=== PATIENT | female | born 1965 | race Caucasian/White ===

== ENCOUNTER 2021-10-19 10:00 | Outpatient (RCR) | payer OTHER, SELFPAY | END 2022-08-25 09:00 | disposition home or self-care (01) | PROVIDERS: Visit Provider Physician Assistant Medical | DX: M65.4 Radial styloid tenosynovitis [de Quervain] (principal); Z51.89 Encounter for other specified aftercare | CPT/HCPCS: 97033; 97035; 97140 ==

== ENCOUNTER 2022-02-28 11:59 | Emergency (ER) | payer OTHER, SELFPAY ==
--- NOTE | 2022-02-28 | CRLHL7_ITS ---
For Patients: As a result of the Century Cures Act, medical imaging exams and procedure reports are released immediately into your electronic medical record. You may view this report before your referring provider. If you have questions, please contact your health care provider. INDICATION: Leg pain and swelling. TECHNIQUE: Ultrasound venous duplex lower left extremity. Compression venous exam was performed using doll-scale, color Doppler, and spectral Doppler analysis. COMPARISON: None. FINDINGS: Deep veins: Sonographic imaging demonstrates the left common femoral, deep femoral, superficial femoral, popliteal, posterior tibial and the contralateral right common femoral veins to be fully compressible with normal color Doppler blood flow. Superficial veins: Greater saphenous vein is fully compressible. Soft tissues: Anechoic collection in the popliteal fossa measures 2.4 x 1.1 x 1.4 cm, suggestive of a simple Medina`s cyst. IMPRESSION: No deep venous thrombosis. Dictated by Estuardo Escalante MD @ 02/28/2022 3:12:14 PM (Electronically Signed)
[2022-02-28 12:03] VITALS: BP 161/80; PULSE 106; RESP 20; TEMP 36.2; O2SAT 97; BMI 64.1
--- NOTE | 2022-02-28 13:07 | CRLHL7_ITS ---
For Patients: As a result of the Cures Act, medical imaging exams and procedure reports are released immediately into your electronic medical record. You may view this report before your referring provider. If you have questions, please contact your health care provider. Indication: Knee pain, swelling Comparison: None available. Technique: Standing AP, lateral, and sunrise views of the bilateral knee were obtained Findings: There is no displaced fracture or dislocation. There are severe degenerative changes of the right greater than left medial compartments with near complete loss of joint space and exuberant osteophyte formation. No evidence of joint effusion. Impression: Moderate to severe degenerative changes predominantly in the bilateral right greater than left medial compartments with near complete loss of joint space and marginal osteophyte formation. No evidence of displaced fracture. Dictated by Isidro Hogan MD @ 02/28/2022 3:52:29 PM (Electronically Signed)
--- NOTE | 2022-02-28 13:08 | ED.GENADULT ---
HPI - General Adult General Time Seen by Provider: 13:09 Date Seen: 02/28/22 Chief complaint: Extremity Pain/Injury, Lower Stated complaint: Left leg pain Time Seen by Provider: 02/28/22 12:10 Source: patient Mode of arrival: ambulatory Limitations: no limitations History of Present Illness HPI narrative: 57-year-old female who comes in with left knee pain. She initially says this is been going on about a week, but on further interview says that she has been seen her doctor for this for over 2 years. Pain is been worse the last 2 weeks. She feels like the knee is more swollen than usual and feels like it is going to give out. She denies fevers or chills. She has taken Percocet for this and has applied hot packs to the knee with minimal improvement. She uses walker for ambulation. She denies any new injury. She called the clinic and they indicated she should come to the emergency department for evaluation for a blood clot. Related Data Home Medications Medication Instructions Recorded Confirmed bupropion HCl 150 mg tablet,12 hr mg PO 02/28/22 sustained-release celecoxib 200 mg capsule mg 02/28/22 cyclobenzaprine 10 mg tablet mg 02/28/22 dextroamphetamine-amphetamine ER PO 02/28/22 30 mg 24hr capsule,extend release furosemide 40 mg tablet mg 02/28/22 gabapentin 300 mg capsule mg 02/28/22 levothyroxine 200 mcg tablet mcg 02/28/22 levothyroxine 25 mcg tablet mcg 02/28/22 oxycodone-acetaminophen 5 mg-325 tab 02/28/22 mg tablet pantoprazole 40 mg tablet,delayed mg PO 02/28/22 release pramipexole 1 mg tablet mg 02/28/22 Allergies Allergy/AdvReac Type Severity Reaction Status Date / Time Cephalosporins Allergy Mild Unknown Verified 02/10/22 09:50 gabapentin Allergy Mild Unknown Verified 02/10/22 09:50 Sulfa (Sulfonamide Allergy Mild Unknown Verified 02/10/22 09:50 Antibiotics) sulfamethoxazole Allergy Mild Unknown Verified 02/10/22 09:50 trimethoprim Allergy Mild Unknown Verified 02/10/22 09:50 adhesive tape AdvReac Mild Unknown Verified 02/10/22 09:50 Review of Systems Status of ROS: Reports: 10 or more systems reviewed and unremarkable except as noted in History and below PFSH PFSH Social History Smoking Status: Never smoker Do you use any of these nicotine containing products: None How often do you have a drink containing alcohol: never AUDIT-C Alcohol total score: 0 Non-prescribed substance use: denies use Exam Narrative: Exam Narrative: General: well nourished , NAD Head: Atraumatic and normocephalic ENT: External ears and external nose are normal Eyes: Conjunctiva clear, pupils are equal reactive, external ocular motions are intact Neck: Full spontaneous range of motion of the neck Lungs: No respiratory distress Musculoskeletal: Possible swelling of the left knee although exam is difficult due to body habitus, no redness or warmth, no pain with passive movement of the knee. Mild swelling of the left without tenderness Neurologic: No gross focal neurologic deficits Skin: No rashes Psych: Mood and affect are appropriate Const: Vital Signs, click to edit/add: Vital Signs - 24 hr 02/28/22 12:03 Temperature 97.1 F L Pulse Rate [Right Pulse Oximeter] 106 H Respiratory Rate 20 Blood Pressure [Ri ght Upper Arm] 161/80 H Pulse Oximetry 97 Oxygen Delivery Me thod Room Air Course Course Hospital Course: Patient presents with left knee pain. This been a problem going on for couple years, worse in the last week. No redness, warmth, or pain with passive movement to suggest crystal arthropathy or septic arthritis. Minimal swelling of the lower leg, ultrasound is ordered as patient is concerned about a DVT but this is clinically unlikely. Symptoms are most consistent with exacerbation of patient's known osteoarthritis. X-rays are ordered, plan to discharge with continued pain and consideration for arthrocentesis and steroid injection as an outpatient Reevaluation(s) Reevaluation #1: Ultrasound is negative for acute DVT, x-rays personally reviewed by me show osteoarthritis but no acute fractures. Patient is stable for discharge and will follow up with her regular doctor to discuss further treatment. She reports that she does have a pain contract with [facility] as Percocet at home, she can increase this to 4 times a day if needed. Time: 15:25 Vital Signs Vital signs: Initial Vital Signs Temperature 97.1 F L 02/28/22 12:03 Temperature Source Temporal Artery Scan 02/28/22 12:03 Pulse Rate 106 H 02/28/22 12:03 Respiratory Rate 20 02/28/22 12:03 Blood Pressure 161/80 H 12/27/22 12:03 Blood Pressure Mean 107 02/28/22 12:03 Blood Pressure Position Sitting 02/28/22 12:03 Pulse Oximetry 97 02/28/22 12:03 Oxygen Delivery Method 02/28/22 12:03 Vital Signs Temperature 97.1 F L 02/28/22 12:03 Pulse Rate 106 H 02/28/22 12:03 Respiratory Rate 20 02/28/22 12:03 Blood Pressure 161/80 H 02/28/22 12:03 Pulse Oximetry 97 02/28/22 12:03 Oxygen Delivery Method 02/28/22 12:03 Temperature 97.1 F L 02/28/22 12:03 Pulse Rate 106 H 02/28/22 12:03 Respiratory Rate 20 02/28/22 12:03 Blood Pressure 161/80 H 02/28/22 12:03 Pulse Oximetry 97 02/28/22 12:03 Oxygen Delivery Method 02/28/22 12:03 Medical Decision Making Medical Records Medical records reviewed: Yes I reviewed the patient's medical records Lab Data Lab results reviewed: Yes I reviewed the patient's lab results Imaging Data Venous US: Attestation: I have reviewed the pertinent imaging results. Radiologist's impression: Soft tissues: Anechoic collection in the popliteal fossa measures 2.4 x 1.1 x 1.4 cm, suggestive of a simple Medina`s cyst. IMPRESSION: No deep venous thrombosis. XR knees bilateral: Attestation: I have reviewed the pertinent imaging results. My impression: Degenerative changes bilaterally, no acute fracture Discharge Plan Discharge Clinical Impression: Effusion of knee joint, left, Medina's cyst, unruptured, Osteoarthritis of left knee Patient Disposition: Home, Self-Care Condition: Stable Instructions: Osteoarthritis (ED), Medina Cyst (ED), Swollen Knee Joint (ED) Additional Instructions: Ice and compression to help with symptoms. Continue Tylenol and ibuprofen for pain. Take Percocet up to 4 times a day as needed for more severe pain. Follow-up with your doctor as soon as possible discuss further treatment including aspiration and steroid injection Activity Level: Activity as Tolerated Discharge Diet: Regular Prescriptions: No Action celecoxib 200 mg capsule cyclobenzaprine 10 mg tablet pramipexole 1 mg tablet Label Comments: TAKE 1 AND 1/2 TABLETS BY MOUTH AT BEDTIME NEEDED furosemide 40 mg tablet Label Comments: TAKE 1-2 TABLETS (40-80 MG) BY MOUTH EVERY MORNING. bupropion HCl 150 mg tablet sustained-release 12 hr PO Label Comments: TAKE TWO TABLETS BY MOUTH DAILY EVERY MORNING levothyroxine 25 mcg tablet Label Comments: TAKE 1 TABLET (25 MCG) BY MOUTH BEFORE BREAKFAST. TAKE IN ADDITION TO 200 MCG FOR TOTAL OF 225 MCG/DAY. oxycodone-acetaminophen 5-325 mg tablet pantoprazole 40 mg tablet,delayed release (DR/EC) PO Label Comments: TAKE 1 TABLET (40 MG) BY MOUTH ONCE DAILY. gabapentin 300 mg capsule Label Comments: TAKE 1 CAPSULE (300 MG) BY MOUTH 2 TIMES DAILY. levothyroxine 200 mcg tablet Label Comments: TAKE 1 TABLET (200 MCG) BY MOUTH BEFORE BREAKFAST. TAKE IN ADDITION TO 25 MCG TO TOTAL OF 225 MCG. dextroamphetamine-amphetamine 30 mg capsule,extended release 24hr PO Label Comments: TAKE 1 CAPSULE (30 MG) BY MOUTH ONCE DAILY. Stand Alone Forms: [facility] Info Instructions
--- NOTE | 2022-02-28 13:55 | ED.NURSE ---
US is in the room performing test
[2022-02-28] MEDS: KETOROLAC 30 MG/ML inj IM (15:43)
== END 2022-02-28 15:54 | disposition home or self-care (01) ==
PROVIDERS: Emergency Provider Family Medicine; PCP Physician Assistant Medical
DX: M71.22 Synovial cyst of popliteal space [Baker], left knee (principal); M17.9 Osteoarthritis of knee, unspecified
CPT/HCPCS: 73562; 93971; 96372; 99284; J1885

== ENCOUNTER 2022-06-09 07:04 | Outpatient (CLI) | payer OTHER, SELFPAY ==
--- NOTE | 2022-06-09 07:15 | CRLHL7_ITS ---
For Patients: As a result of the Century Cures Act, medical imaging exams and procedure reports are released immediately into your electronic medical record. You may view this report before your referring provider. If you have questions, please contact your health care provider. INDICATION: bilateral leg edema COMPARISON: none TECHNIQUE: A compression venous ultrasound exam was performed of both lower extremities using doll scale imaging, color Doppler and spectral Doppler analysis. FINDINGS: Sonographic imaging of the lower extremities demonstrates normal compressibility and color Doppler venous blood flow within the common femoral, deep femoral, and proximal greater saphenous veins. Within the thighs the femoral veins are patent and compressible. At a lower level the popliteal and posterior tibial veins also show normal compressibility and color Doppler venous blood flow. Small popliteal cysts are present bilaterally. IMPRESSION: No evidence of deep vein thrombosis within either the left or right lower extremity. Dictated by Rodrigo Clark MD @ 06/09/2022 11:09:11 AM (Electronically Signed)
== END 2022-06-09 07:05 | disposition home or self-care (01) ==
LOC: US 07:06
PROVIDERS: PCP Physician Assistant Medical; Visit Provider Dietitian, Registered
DX: R60.0 Localized edema (principal)
CPT/HCPCS: 93970

== ENCOUNTER 2022-08-18 11:58 | Outpatient (CLI) | payer OTHER, SELFPAY ==
--- NOTE | 2022-08-18 12:15 | CRLHL7_ITS ---
For Patients: As a result of the Century Cures Act, medical imaging exams and procedure reports are released immediately into your electronic medical record. You may view this report before your referring provider. If you have questions, please contact your health care provider. INDICATION: Lumbar radiculopathy. TECHNIQUE: Multiplanar multisequence noncontrast MR images acquired through the lumbar spine. COMPARISON: MRI lumbar spine 02/05/2020. FINDINGS: The lumbar lordosis is preserved. Slight leftward lumbar curvature. Vertebral heights maintained. No acute fracture. No T1 hypointense marrow replacing lesions. Normal conus terminates at L1. T12-L1: Mild disc degeneration. No spinal canal or neural foraminal narrowing. L1-2: Hbny-vs-maovwbkq disc degeneration. No spinal canal or neural foraminal narrowing. L2-3: Moderate disc degeneration. Mild disc height loss. Mild facet arthropathy. No spinal canal or neural foraminal narrowing. L3-4: Tfeo-bs-jqsfaver disc degeneration. Xjsg-cl-mheczujs facet arthropathy. No spinal canal or neural foraminal narrowing. L4-5: Grade 1 anterolisthesis measuring 3 mm, not significantly changed. Moderate disc degeneration. Shallow posterior disc bulge. Advanced bilateral facet arthropathy. Thickening ligamentum flavum. Moderately severe spinal canal stenosis. Moderate right lateral recess stenosis. Mild bilateral neural foraminal narrowing. Mild edema right posterior elements. L5-S1: Moderate disc degeneration. Mild endplate edema. Shallow posterior disc bulge and endplate spondylitic ridging. Advanced facet arthropathy. Thickening of ligamentum flavum. No spinal canal narrowing. Mild left without right neural foraminal narrowing. Degenerative indents on the left kidney superior pole, compatible with a renal cyst. IMPRESSION: 1. No significant change compared to the MRI dated 02/05/2020. 2. At L4-5, grade 1 anterolisthesis and advanced facet arthropathy contribute to moderately severe spinal canal stenosis and moderate right lateral recess stenosis. There is mild bilateral neural foraminal narrowing. Mild edema in the right posterior elements, most compatible with a stress response. 3. At L5-S1, mild left neural foraminal narrowing. Advanced facet arthropathy. Dictated by Fermín Beauchamp MD @ 08/19/2022 3:53:51 PM (Electronically Signed)
== END 2022-08-18 11:59 | disposition home or self-care (01) ==
LOC: MRI 11:58
PROVIDERS: PCP Physician Assistant Medical; Visit Provider Physician Assistant Medical
DX: M54.16 Radiculopathy, lumbar region (principal); M51.36 Other intervertebral disc degeneration, lumbar region; M51.37 Other intervertebral disc degeneration, lumbosacral region
CPT/HCPCS: 72148

== ENCOUNTER 2022-08-29 13:24 | Outpatient (CLI) | payer OTHER, SELFPAY | END 2022-08-29 13:25 | disposition home or self-care (01) | LOC: INJ CL 13:24 | PROVIDERS: PCP Physician Assistant Medical; Visit Provider Family Medicine | DX: M54.16 Radiculopathy, lumbar region (principal); M51.36 Other intervertebral disc degeneration, lumbar region | CPT/HCPCS: 62323; J0702; Q9966 ==

== ENCOUNTER 2022-10-08 14:26 | Emergency (ER) | payer OTHER, SELFPAY ==
[2022-10-08 14:34] VITALS: BP 130/84; PULSE 94; RESP 22; TEMP 36.5; O2SAT 95; BMI 66.6
--- NOTE | 2022-10-08 14:58 | ED_ITS ---
HPI - General Adult General Chief complaint: Extremity Pain/Injury, Lower Stated complaint: left knee pain Time Seen by Provider: 10/08/22 14:36 History of Present Illness HPI narrative: This 57-year-old female comes in with worsening left knee pain over the past week or so. She has a history of degenerative disease in her left knee that is moderate to severe. An x-ray was done about 8 months ago showing these findings. The patient has had knee pain over the past several years but it has worsened recently without any particular injury event or strenuous activity to trigger it. She states that she did have a injection into her knee about a year ago and this brought some relief for a while. She does take Percocet daily as part of a pain contract. She has chronic low back pain and sees Dr. Johnson for this. She also has a history of a Medina's cyst in her left knee. Related Data Home Medications Medication Instructions Recorded Confirmed bupropion HCl 150 mg tablet,12 hr mg PO 02/28/22 07/24/22 sustained-release celecoxib 200 mg capsule mg 02/28/22 07/24/22 cyclobenzaprine 10 mg tablet mg 02/28/22 07/24/22 dextroamphetamine-amphetamine ER PO 02/28/22 07/24/22 30 mg 24hr capsule,extend release furosemide 40 mg tablet mg 02/28/22 07/24/22 gabapentin 300 mg capsule mg 02/28/22 07/24/22 levothyroxine 200 mcg tablet mcg 02/28/22 07/24/22 levothyroxine 25 mcg tablet mcg 02/28/22 07/24/22 oxycodone-acetaminophen 5 mg-325 tab 02/28/22 07/24/22 mg tablet pantoprazole 40 mg tablet,delayed mg PO 02/28/22 07/24/22 release pramipexole 1 mg tablet mg 02/28/22 07/24/22 Previous Rx's Medication Instructions Recorded peg 3350-electrolytes 236 240 ml PO ONCE #4,000 mL 05/12/22 gram-22.74 gram-6.74 gram-5.86 gram solution (Golytely) peg 3350-electrolytes 236 240 ml PO ONCE #4,000 mL 07/17/22 gram-22.74 gram-6.74 gram-5.86 gram solution (Golytely) prednisone 20 mg tablet 20 mg PO BID #10 tabs 07/24/22 Allergies Allergy/AdvReac Type Severity Reaction Status Date / Time Cephalosporins Allergy Mild Unknown Verified 07/24/22 18:50 gabapentin Allergy Mild Unknown Verified 07/24/22 18:50 Sulfa (Sulfonamide Allergy Mild Unknown Verified 07/24/22 18:50 Antibiotics) sulfamethoxazole Allergy Mild Unknown Verified 07/24/22 18:50 trimethoprim Allergy Mild Unknown Verified 07/24/22 18:50 adhesive tape AdvReac Mild Unknown Verified 07/24/22 18:50 Review of Systems Status of ROS: Reports: 10 or more systems reviewed and unremarkable except as noted in History and below Narrative: Constitutional: No fevers. Eyes: No discharge. No vision changes. HENT: No congestion, no sore throat, no ear pain. Cardiovascular: No chest pain, no palpitations. Respiratory: No shortness of breath, no wheezes, no cough. Gastrointestinal: No abdominal pain, no vomiting, no diarrhea. Genitourinary: No dysuria, no hematuria. Musculoskeletal: Chronic low back pain and left knee pain. Skin: No rashes, no pruritis. Neurological: No dizziness, weakness, sensory change, speech change. Endo/Heme/Allergies: No bruising or bleeding. No polydipsia. Pysch: no suicidality, no anxiety, no insomnia. All other systems reviewed and are negative. [facility] Medical History (Updated 10/08/22 @ 15:54 by Arpit Bonner MD) Knee pain ?M25.569 - Pain in unspecified knee (ICD-10) Social History Smoking Status: Light tobacco smoker What tobacco products do you use: cigarettes Do you use any of these nicotine containing products: None Second hand tobacco smoke exposure: No How often do you have a drink containing alcohol: never AUDIT-C Alcohol total score: 0 Non-prescribed substance use: denies use service: No Exam Narrative: Exam Narrative: Constitutional: No acute distress. Morbid obesity. HEENT: Normocephalic, atraumatic. Neck: Normal range of motion. Nontender. Supple. Heart: Regular. No murmurs. Normal rate. Intact distal pulses. Lungs: Clear to auscultation. No chest discomfort. No wheezes, rhonchi, or rales. Abdomen: Normal bowel sounds. Nontender. No rebound tenderness. Genitalia: Deferred. Back: No midline tenderness. Normal range of motion. Extremities: Normal range of motion. No sign of injury. Diffuse pain in the anterior and lateral aspect of her left knee. She is able to bear weight and raise her leg from the bed. Skin: Intact. No rash. Warm. No erythema or pallor. Neurologic: No altered sensation. No weakness. Alert and oriented. Psychiatric: No suicidality. No anxiety or depression. No insomnia. Nursing notes and vitals signs are reviewed. Const: Vital Signs, click to edit/add: Vital Signs - 24 hr 10/08/22 14:34 Temperature 97.7 F Pulse Rate [Pulse Oximeter] 94 Respiratory Rate 22 Blood Pressure [Ri ght Forearm] 130/84 Pulse Oximetry 95 Oxygen Delivery Me thod Room Air Course Vital Signs Vital signs: Initial Vital Signs Temperature 97.7 F 10/08/22 14:34 Temperature Source Temporal Artery Scan 10/08/22 14:34 Pulse Rate 94 10/08/22 14:34 Pulse Rhythm Regular 10/08/22 14:34 Respiratory Rate 22 10/08/22 14:34 Blood Pressure 130/84 10/08/22 14:34 Blood Pressure Mean 99 10/08/22 14:34 Blood Pressure Position Supine 10/08/22 14:34 Pulse Oximetry 95 10/08/22 14:34 Oxygen Delivery Method Room Air 10/08/22 14:34 Vital Signs Temperature 97.7 F 10/08/22 14:34 Pulse Rate 94 10/08/22 14:34 Respiratory Rate 22 10/08/22 14:34 Blood Pressure 130/84 10/08/22 14:34 Pulse Oximetry 95 10/08/22 14:34 Oxygen Delivery Method Room Air 10/08/22 14:34 Temperature 97.7 F 10/08/22 14:34 Pulse Rate 94 10/08/22 14:34 Respiratory Rate 22 10/08/22 14:34 Blood Pressure 130/84 10/08/22 14:34 Pulse Oximetry 95 10/08/22 14:34 Oxygen Delivery Method Room Air 10/08/22 14:34 Medical Decision Making MDM Narrative Medical decision making narrative: This patient comes in reporting severe pain in her left knee. There was no particular injury event but she does have history of knee pain related to moderate to severe degenerative disease. She did have an x-ray showing this about 8 months ago. There was no new injury today that mandates repeat x-ray images. The patient did benefit from an intra-articular injection into her knee joint. This was last done about a year ago. She is agreeable to have this done today. I did administer 40 mg of Kenalog mixed with Marcaine 0.25%. Total of 10 mL of fluid was injected successfully into the left knee joint space within approach just left of the patella tendon. The patient also received a intra muscular injection of Toradol 30 mg. She is okay to return home min and courage to follow-up with her orthopedic physician or primary physician. She uses Percocet according to a pain contract. Discharge Plan Discharge Clinical Impression: Knee pain Patient Disposition: Home, Self-Care Condition: Stable Additional Instructions: Continue current medications also as directed. Follow-up with orthopedic clinic or primary physician. Return if worsening. Prescriptions: No Action prednisone 20 mg tablet 20 mg PO BID Qty: 10 0RF celecoxib 200 mg capsule cyclobenzaprine 10 mg tablet pramipexole 1 mg tablet Patient Comments: TAKE 1 AND 1/2 TABLETS BY MOUTH AT BEDTIME NEEDED furosemide 40 mg tablet Patient Comments: TAKE 1-2 TABLETS (40-80 MG) BY MOUTH EVERY MORNING. bupropion HCl 150 mg tablet sustained-release 12 hr PO Patient Comments: TAKE TWO TABLETS BY MOUTH DAILY EVERY MORNING levothyroxine 25 mcg tablet Patient Comments: TAKE 1 TABLET (25 MCG) BY MOUTH BEFORE BREAKFAST. TAKE IN ADDITION TO 200 MCG FOR TOTAL OF 225 MCG/DAY. oxycodone-acetaminophen 5-325 mg tablet pantoprazole 40 mg tablet,delayed release (DR/EC) PO Patient Comments: TAKE 1 TABLET (40 MG) BY MOUTH ONCE DAILY. gabapentin 300 mg capsule Patient Comments: TAKE 1 CAPSULE (300 MG) BY MOUTH 2 TIMES DAILY. levothyroxine 200 mcg tablet Patient Comments: TAKE 1 TABLET (200 MCG) BY MOUTH BEFORE BREAKFAST. TAKE IN ADDITION TO 25 MCG TO TOTAL OF 225 MCG. dextroamphetamine-amphetamine 30 mg capsule,extended release 24hr PO Patient Comments: TAKE 1 CAPSULE (30 MG) BY MOUTH ONCE DAILY. peg 3350-electrolytes [Golytely] 236-22.74-6.74 -5.86 gram recon soln 240 ml PO ONCE Qty: 4000 0RF Rx Instructions: until fecal effluent is clear peg 3350-electrolytes [Golytely] 236-22.74-6.74 -5.86 gram recon soln 240 ml PO ONCE Qty: 4000 0RF Rx Instructions: 4pm day prior to procedure. Drink 8oz glass every 15 minutes until 1/2 of solution is gone. 6 hours prior to your procedure time drink 8oz glass every 15 minutes until remaining solution is gone. Follow Up/Referrals: Concetta Valencia PA-C [Primary Care Provider] - Stand Alone Forms: [facility] Info Instructions
[2022-10-08] MEDS: KETOROLAC 30 MG/ML inj IM (15:04)
== END 2022-10-08 16:37 | disposition home or self-care (01) ==
PROVIDERS: Emergency Provider Emergency Medicine Emergency Medical Services; PCP Physician Assistant Medical
DX: M25.562 Pain in left knee (principal)
CPT/HCPCS: 20610; 96372; 99284; J1885

== ENCOUNTER 2023-02-06 18:19 | Outpatient (CLI) | payer OTHER, SELFPAY ==
--- NOTE | 2023-02-06 18:30 | CRLHL7_ITS ---
For Patients: As a result of the Cures Act, medical imaging exams and procedure reports are released immediately into your electronic medical record. You may view this report before your referring provider. If you have questions, please contact your health care provider. BILATERAL SCREENING MAMMOGRAM WITH COMPUTER-AIDED DETECTION AND TOMOSYNTHESIS TECHNIQUE: CC and MLO views were obtained. These mammographic images have been obtained using full-field digital technique. These mammographic images were interpreted with the benefit of computer-aided detection. Breast Tomosynthesis was used in this interpretation. COMPARISON FILM: 02/06/19, 03/01/18, 02/27/17. FINDINGS: The breasts are almost entirely fatty IMPRESSION: There is no radiographic evidence for malignancy. ASSESSMENT: BI-RADS Category 2: Benign RECOMMENDATION: Routine screening mammogram in 1 year. A lay language report of this examination will be provided to the patient. Rodrigo Clark M.D. Diagnostic Radiologist [email or web address] Transcribed: 6:34 p.mCornelia freeman/Dictated by: Rodrigo Clark MD @ 02/07/2023 12:38:00 PM (Electronically Signed)
== END 2023-02-06 18:20 | disposition home or self-care (01) ==
LOC: MAMMO 18:20
PROVIDERS: PCP Physician Assistant Medical; Visit Provider Physician Assistant Medical
DX: Z12.31 Encounter for screening mammogram for malignant neoplasm of breast (principal)
CPT/HCPCS: 77063; 77067

== ENCOUNTER 2023-07-10 19:12 | Emergency (ER) | payer OTHER, SELFPAY ==
[2023-07-10 19:22] VITALS: BP 136/100; PULSE 98; RESP 18; TEMP 36.5; O2SAT 96; BMI 70.7
--- NOTE | 2023-07-10 19:31 | ED.GENADULT ---
HPI - General Adult General Chief complaint: Unspecified Complaint, Adult Stated complaint: Lightheaded, dry mouth Time Seen by Provider: 07/10/23 19:12 History of Present Illness HPI narrative: Patient is a very nice 50 year white female who has the med significantly elevated BMI, she is contemplating gastric bypass surgery, she has got a weeping area behind her left knee, and she has felt a little dry in her mouth since she took her 2nd dose of metolazone which is a weekly medication for her. She has had fluid retention, does not have history of heart failure, cardiac disease, or pulmonary disease. She reports she has been in a good state of health, she feels okay other than her mouth feels dry. She has had no chest pain, fever, chills, cough. She reports the rash behind her left knee. Related Data Home Medications Medication Instructions Recorded Confirmed bupropion HCl 150 mg tablet,12 hr mg PO 02/28/22 07/24/22 sustained-release celecoxib 200 mg capsule mg 02/28/22 07/24/22 cyclobenzaprine 10 mg tablet mg 02/28/22 07/24/22 dextroamphetamine-amphetamine ER PO 02/28/22 07/24/22 30 mg 24hr capsule,extend release furosemide 40 mg tablet mg 02/28/22 07/24/22 gabapentin 300 mg capsule mg 02/28/22 07/24/22 levothyroxine 200 mcg tablet mcg 02/28/22 07/24/22 levothyroxine 25 mcg tablet mcg 02/28/22 07/24/22 oxycodone-acetaminophen 5 mg-325 tab 02/28/22 07/24/22 mg tablet pantoprazole 40 mg tablet,delayed mg PO 02/28/22 07/24/22 release pramipexole 1 mg tablet mg 02/28/22 07/24/22 Previous Rx's Medication Instructions Recorded peg 3350-electrolytes 236 240 ml PO ONCE #4,000 mL 05/12/22 gram-22.74 gram-6.74 gram-5.86 gram solution (Golytely) peg 3350-electrolytes 236 240 ml PO ONCE #4,000 mL 07/17/22 gram-22.74 gram-6.74 gram-5.86 gram solution (Golytely) prednisone 20 mg tablet 20 mg PO BID #10 tabs 07/24/22 ketoconazole 2 % topical cream 1 applic topical DAILY 7 days #15 07/10/23 grams triamcinolone acetonide 0.1 % 1 applic topical BID #15 grams 07/10/23 topical cream Allergies Allergy/AdvReac Type Severity Reaction Status Date / Time Cephalosporins Allergy Mild Unknown Verified 07/24/22 18:50 gabapentin Allergy Mild Unknown Verified 07/24/22 18:50 Sulfa (Sulfonamide Allergy Mild Unknown Verified 07/24/22 18:50 Antibiotics) sulfamethoxazole Allergy Mild Unknown Verified 07/24/22 18:50 trimethoprim Allergy Mild Unknown Verified 07/24/22 18:50 adhesive tape AdvReac Mild Unknown Verified 07/24/22 18:50 Review of Systems Status of ROS: Reports: 6 or more systems reviewed and unremarkable except as noted in History and below [facility] Medical History Knee pain ?M25.569 - Pain in unspecified knee (ICD-10) Social History Smoking Status: Light tobacco smoker What tobacco products do you use: cigarettes Do you use any of these nicotine containing products: None Second hand tobacco smoke exposure: No How often do you have a drink containing alcohol: never AUDIT-C Alcohol total score: 0 Non-prescribed substance use: denies use service: No Exam Narrative: Exam Narrative: Objective: Patient's vital signs are largely within normal limits, Her BMI is elevated as mention She is alert orient x3 no distress No facial asymmetry no scleral icterus Neck is supple Heart rate and rhythm regular without murmur Pulses regular Abdomen benign soft nontender Lower extremities show trace edema bilaterally she has got a fungal type infection behind her left knee in the crease of her knee, she does have adipose over folds of her posterior knee area. Does not look likes bacterial cellulitis. Const: Vital Signs, click to edit/add: Vital Signs - 24 hr 07/10/23 19:22 07/10/23 21:00 07/10/23 22:00 Temperature 97.7 F 97.7 F Pulse Rate [Pulse Oximeter] 98 86 98 Respiratory Rate 18 16 16 Blood Pressure [Ri ght Forearm] 136/100 H 148/96 H 131/84 Pulse Oximetry 96 96 96 Oxygen Delivery Me thod Room Air Room Air Room Air Course Vital Signs Vital signs: Initial Vital Signs Temperature 97.7 F 07/10/23 19:22 Temperature Source Temporal Artery Scan 07/10/23 19:22 Pulse Rate 98 07/10/23 19:22 Respiratory Rate 18 07/10/23 19:22 Blood Pressure 136/100 H 07/10/23 19:22 Blood Pressure Mean 112 H 07/10/23 19:22 Blood Pressure Position Sitting 07/10/23 19:22 Pulse Oximetry 96 07/10/23 19:22 Oxygen Delivery Method Room Air 07/10/23 19:22 Vital Signs Temperature 97.7 F 07/10/23 19:22 Pulse Rate 98 07/10/23 19:22 Respiratory Rate 18 07/10/23 19:22 Blood Pressure 136/100 H 07/10/23 19:22 Pulse Oximetry 96 07/10/23 19:22 Oxygen Delivery Method Room Air 07/10/23 19:22 Temperature 97.7 F 07/10/23 22:00 Pulse Rate 98 07/10/23 22:00 Respiratory Rate 16 07/10/23 22:00 Blood Pressure 131/84 07/10/23 22:00 Pulse Oximetry 96 07/10/23 22:00 Oxygen Delivery Method Room Air 07/10/23 22:00 Medications Administered Medications: Discontinued Medications Generic Name Dose Route Start Last Admin Trade Name Freq PRN Reason Stop Dose Admin Sodium Chloride 500 mls @ 500 mls/hr 07/10/23 19:30 07/10/23 20:19 0.9 % Sodium Chloride 500 Ml IV 07/10/23 20:29 Infused .Q1H ONE Infusion Potassium Chloride 10 meq in 100 mls @ 100 mls/hr 07/10/23 20:15 07/10/23 22:14 Potassium Chloride IVPB 07/10/23 22:44 Infused Q90M HAKAN Infusion Potassium Bicarbonate 25 meq 07/10/23 21:07 07/10/23 21:56 Potassium Bicarb 25 Meq Effervescent Tab PO 07/10/23 21:08 25 meq ONCE ONE Administration Medical Decision Making MDM Narrative Medical decision making narrative: 50-year-old female with significant elevated BMI with a left posterior knee fungal infection. Will fax in some antifungal cream and steroid cream for her. She could start this tomorrow or thickened up on the way home today. I think also be reasonable given her feeling of dry mouth, that she might have some slight dehydration will recheck her laboratory studies including heme 4 and a basic 7 and give her 500 mL normal saline. Does not appear to have significant fluid retention now her legs. I think that be safe to give her this given she feels symptomatic. She should then make an appoint with regular doctor next few days to discuss ongoing diuretic management. Addendum 8:13 p.m.: The patient has a potassium at 2.7. Will give 2 bumps of 10 will close of IV potassium. Will likely given oral potassium dose as well on completion of these. Will need to have her potassium rechecked in a couple of days and would not take additional metolazone at this point. Will also fax in some antifungal and steroid cream as mention. The patient will be given 2 bumps of IV potassium and will get 25 milk opens orally. Would have her hold metolazone as mention until she consults with regular doctor within the next few days. Light activity recommended, high potassium containing foods to be taken. Lab Data Labs: Lab Results 07/10/23 Range/Units 19:36 WBC 8.49 (4.50-11.00) K/uL RBC 5.17 (4.00-5.20) m/uL Hgb 14.3 (12.0-16.0) gm/dL Hct 43.9 (33.0-51.0) % MCV 85 (80-100) fL MCH 28 (26-34) pg MCHC 33 (32-36) gm/dL RDW Coeff of Chito 13.6 (11.5-15.5) % Plt Count 295 (140-440) K/uL Neut % (Auto) 54.9 (42.0-72.0) % Lymph % (Auto) 35.8 (20-44) % [place] % (Auto) 8.8 (0.0-11.0) % Eos % (Auto) 0.1 (0.0-7.0) % Baso % (Auto) 0.2 (0.0-3.0) % Neut # (Auto) 4.65 (1.7-7.0) K/uL Lymph # (Auto) 3.04 H (0.90-2.90) K/uL [place] # (Auto) 0.70 (0.00-0.90) K/UL Eos # (Auto) 0.01 (0.00-0.50) K/uL Baso # (Auto) 0.02 (0.00-0.30) K/uL Abs Immat Gran (auto) 0.02 (0.00-0.30) K/uL Imm/Tot Granulo (auto) 0.2 % Sodium 136 (135-149) mmol/L Potassium 2.7 L* (3.6-5.1) mmol/L Chloride 91 L (96-114) mmol/L Carbon Dioxide 40 H (20-32) mmol/L Anion Gap 5 L (7-15) mEq/L BUN 21 (7-30) mg/dL Creatinine 1.0 (0.5-1.5) mg/dL Estimated Creat Clear 55.18 Estimated GFR 65 ml/min Glucose 106 (60-115) mg/dL Calcium 9.5 (8.4-10.6) mg/dL Discharge Plan Discharge Clinical Impression: Acute dehydration, Fungal dermatitis, Acute hypokalemia Patient Disposition: Home, Self-Care Condition: Stable Additional Instructions: Light activity, antifungal and steroid cream to the back of the knee as prescribed, recheck with your regular doctor discussed diuretic use and fluid management in the next 5-7 days. Return to ED sooner problems or concerns. Give potassium recheck the next 2 days at clinic Activity Level: Light activity Discharge Diet: Heart Healthy (2 gm sodium, low fat) Diet Detail: High potassium containing foods should be Prescriptions: New triamcinolone acetonide 0.1 % cream 1 applic topical BID Qty: 15 0RF ketoconazole 2 % cream 1 applic topical DAILY 7 Days Qty: 15 0RF No Action prednisone 20 mg tablet 20 mg PO BID Qty: 10 0RF celecoxib 200 mg capsule cyclobenzaprine 10 mg tablet pramipexole 1 mg tablet Patient Comments: TAKE 1 AND 1/2 TABLETS BY MOUTH AT BEDTIME NEEDED furosemide 40 mg tablet Patient Comments: TAKE 1-2 TABLETS (40-80 MG) BY MOUTH EVERY MORNING. bupropion HCl 150 mg tablet sustained-release 12 hr PO Patient Comments: TAKE TWO TABLETS BY MOUTH DAILY EVERY MORNING levothyroxine 25 mcg tablet Patient Comments: TAKE 1 TABLET (25 MCG) BY MOUTH BEFORE BREAKFAST. TAKE IN ADDITION TO 200 MCG FOR TOTAL OF 225 MCG/DAY. oxycodone-acetaminophen 5-325 mg tablet pantoprazole 40 mg tablet,delayed release (DR/EC) PO Patient Comments: TAKE 1 TABLET (40 MG) BY MOUTH ONCE DAILY. gabapentin 300 mg capsule Patient Comments: TAKE 1 CAPSULE (300 MG) BY MOUTH 2 TIMES DAILY. levothyroxine 200 mcg tablet Patient Comments: TAKE 1 TABLET (200 MCG) BY MOUTH BEFORE BREAKFAST. TAKE IN ADDITION TO 25 MCG TO TOTAL OF 225 MCG. dextroamphetamine-amphetamine 30 mg capsule,extended release 24hr PO Patient Comments: TAKE 1 CAPSULE (30 MG) BY MOUTH ONCE DAILY. peg 3350-electrolytes [Golytely] 236-22.74-6.74 -5.86 gram recon soln 240 ml PO ONCE Qty: 4000 0RF Rx Instructions: until fecal effluent is clear peg 3350-electrolytes [Golytely] 236-22.74-6.74 -5.86 gram recon soln 240 ml PO ONCE Qty: 4000 0RF Rx Instructions: 4pm day prior to procedure. Drink 8oz glass every 15 minutes until 1/2 of solution is gone. 6 hours prior to your procedure time drink 8oz glass every 15 minutes until remaining solution is gone. Follow Up/Referrals: Concetta Valencia PA-C [Primary Care Provider] - Stand Alone Forms: [employer] Info Instructions
[2023-07-10] MEDS: 0.9 % SODIUM CHLORIDE 500 ML 500 ML IV (19:41)
[2023-07-10 19:46] LABS: Basophils Absolute Auto 0.02 K/uL (0.00-0.30); Basophils Percent Auto 0.2 % (0.0-3.0); Eosinophils Absolute Auto 0.01 K/uL (0.00-0.50); Eosinophils Percent Auto 0.1 % (0.0-7.0); Hematocrit 43.9 % (33.0-51.0); Hemoglobin* 14.3 gm/dL (12.0-16.0); Immature Granulocytes Abs Auto 0.02 K/uL (0.00-0.30); Immature Granulocytes Pct Auto 0.2 %; Lymphocytes Absolute Auto 3.04 K/uL (0.90-2.90); Lymphocytes Percent Auto 35.8 % (20-44); Mean Corpuscular HGB Conc 33 gm/dL (32-36); Mean Corpuscular Hemoglobin 28 pg (26-34); Mean Corpuscular Volume 85 fL (80-100); Monocytes Percent Auto 8.8 % (0.0-11.0); Neutrophils Absolute Auto 4.65 K/uL (1.7-7.0); Neutrophils Percent Auto 54.9 % (42.0-72.0); Platelet Count* 295 K/uL (140-440); RDW Coefficient of Variation % 13.6 % (11.5-15.5); Red Blood Count 5.17 m/uL (4.00-5.20); White Blood Count* 8.49 K/uL (4.50-11.00)
[2023-07-10 19:49] LABS: Slide Review Reflex No
[2023-07-10 20:00] LABS: Chloride* 91 mmol/L (96-114); Sodium* 136 mmol/L (135-149)
[2023-07-10 20:02] LABS: Est. Creatinine Clearance* 55.18; Estimated Glomerular Filt Rate 65 ml/min
[2023-07-10 20:03] LABS: Anion Gap 5 mEq/L (7-15); Blood Urea Nitrogen* 21 mg/dL (7-30); Calcium* 9.5 mg/dL (8.4-10.6); Carbon Dioxide* 40 mmol/L (20-32); Glucose* 106 mg/dL (60-115)
[2023-07-10 20:06] LABS: Potassium* 2.7 mmol/L (3.6-5.1)
[2023-07-10] MEDS: POTASSIUM CHLORIDE 10 MEQ/100 ML PIGGYBACK 100 MEQ IVPB ×2 (20:19→21:15)
[2023-07-10 21:00] VITALS: BP 148/96; PULSE 86; RESP 16; O2SAT 96
[2023-07-10] MEDS: POTASSIUM BICARB 25 MEQ EFFERVESCENT TAB PO (21:56)
[2023-07-10 22:00] VITALS: BP 131/84; PULSE 98; RESP 16; TEMP 36.5; O2SAT 96
== END 2023-07-10 22:19 | disposition home or self-care (01) ==
LOC: ED 19:56
PROVIDERS: Emergency Provider Family Medicine; PCP Physician Assistant Medical
DX: E86.0 Dehydration (principal); B37.2 Candidiasis of skin and nail; E87.6 Hypokalemia
CPT/HCPCS: 36415; 80048; 85025; 96365; 99284; A9270; J3480; J7030

== ENCOUNTER 2023-09-28 09:44 | Emergency (ER) | payer OTHER, SELFPAY ==
[2023-09-28 09:52] VITALS: BP 110/67; PULSE 95; RESP 26; TEMP 36; O2SAT 93; BMI 68.7
--- NOTE | 2023-09-28 10:42 | ED_ITS ---
HPI - General Adult General Chief complaint: Weakness Stated complaint: Pain, weakness, fog, low potassium Time Seen by Provider: 09/28/23 10:30 History of Present Illness HPI narrative: comes to ed with concerns of having a low potassium. has been having weakness, not feeling well, muscle aches, foggy. has had this in the past. on 09/24 k + was 3.1. noticed this am that her urine was a brown color. saw a atmospheric drier tender in August- will be seen by him in December, no changes in her plan- in August. . 58-year-old woman presenting to the emergency department with concern of generally weak or malaise. Does not feel very well. She notes a lot of discomfort in the posterior bilateral thighs. She tries to stretch them out some. She feels a little foggy. She believe she has felt low energy in the past when potassium was low as well. She does take potassium supplementation. It sounds as though takes furosemide for diuresis for her legs primarily. This was decreased recently and she was increase on potassium supplementation. Has been exertionally fatigued for months. She describes some sort of a cardiac evaluation beyond EKG, some scan and was determined to have a ?strong heart? a couple of months ago. She does wear compression stockings it night. She also n oticed that her urine was darker today. Related Data Allergies Allergy/AdvReac Type Severity Reaction Status Date / Time cefadroxil [From Duricef] Allergy Verified 10/21/23 07:24 sulfamethoxazole Allergy Verified 10/21/23 07:24 [From Bactrim] trimethoprim [From Bactrim] Allergy Verified 10/21/23 07:24 Review of Systems Status of ROS: Reports: 6 or more systems reviewed and unremarkable except as noted in History and below [facility] Social History Smoking Status: Current every day smoker What tobacco products do you use: cigarettes Smoking packs per day: 5 Smoking cigarettes per day: 100.0 Do you use any of these nicotine containing products: None Second hand tobacco smoke exposure: No How often do you have a drink containing alcohol: never AUDIT-C Alcohol total score: 0 Non-prescribed substance use: denies use service: No Exam Narrative: Exam Narrative: Pleasant. Does appear tired. Skin is warm and dry. I see suggest showed of some very tiny blister formation starting on the medial left lower leg. Bilateral lower legs with mildly pitting the mostly dependent moderate edema. No discrete erythema or calor. Lungs are clear. Heart in elevated rate and regular rhythm. Abdomen is quite obese soft nontender. Cranial nerves 2-12 intact. Moving all extremities otherwise without difficulty. Const: Vital Signs, click to edit/add: Vital Signs - 24 hr 09/28/23 09:52 09/28/23 13:52 Temperature 96.8 F L Pulse Rate [Pulse Oximeter] 95 64 Respiratory Rate 26 H 18 Blood Pressure [Ri ght Forearm] 110/67 100/87 Pulse Oximetry 93 95 Oxygen Delivery Me thod Room Air Room Air Documenting provider has reviewed patient's vital signs: yes Course Vital Signs Vital signs: Initial Vital Signs Temperature 96.8 F L 09/28/23 09:52 Temperature Source Temporal Artery Scan 09/28/23 09:52 Pulse Rate 95 09/28/23 09:52 Pulse Rhythm Regular 09/28/23 09:52 Respiratory Rate 26 H 09/28/23 09:52 Blood Pressure 110/67 09/28/23 09:52 Blood Pressure Mean 81 09/28/23 09:52 Blood Pressure Position Supine 09/28/23 09:52 Pulse Oximetry 93 09/28/23 09:52 Oxygen Delivery Method Room Air 09/28/23 09:52 Vital Signs Temperature 96.8 F L 09/28/23 09:52 Pulse Rate 95 09/28/23 09:52 Respiratory Rate 26 H 09/28/23 09:52 Blood Pressure 110/67 09/28/23 09:52 Pulse Oximetry 93 09/28/23 09:52 Oxygen Delivery Method Room Air 09/28/23 09:52 Temperature 96.8 F L 09/28/23 09:52 Pulse Rate 64 09/28/23 13:52 Respiratory Rate 18 09/28/23 13:52 Blood Pressure 100/87 09/28/23 13:52 Pulse Oximetry 95 09/28/23 13:52 Oxygen Delivery Method Room Air 09/28/23 13:52 Medications Administered Medications: Discontinued Medications Generic Name Dose Route Start Last Admin Trade Name Freq PRN Reason Stop Dose Admin Sodium Chloride 1,000 mls @ 1,000 mls/hr 09/28/23 11:01 09/28/23 12:58 0.9 % Sodium Chloride 1000 Ml IV 09/28/23 12:00 Infused .Q1H ONE Infusion Medical Decision Making MDM Narrative Medical decision making narrative: Differential would include heart failure or arrhythmia or anemia. I would screen for COVID. Will check a urine as well. I am not sure that a potassium of 3.1 would be contributing to how she is feeling. Will recheck along with magnesium level. Probably dehydrated. Will give some IV fluids. Heart failure is a differential though she reports having had recent good workup. Does not have findings otherwise on auscultation to suggest pleural effusion she is however mildly hypoxic. Will check chest x-ray. Cardiac labs. I think if COVID negative and labs normal most symptoms could be attributed to obesity and deconditioning, and I think this would also apply to mild hypoxia. TECHNIQUE: Chest 2 views. COMPARISON: None. FINDINGS: No pneumothorax or pleural effusion. Lungs are clear. Cardiac and mediastinal contours are within normal limits. Upper abdomen and osseous structures as imaged show no acute abnormality. IMPRESSION: No evidence of acute cardiopulmonary disease. D-dimer moderately elevated. I think it is hard to say that there is not potential pulmonary embolus. Also scores probably a 2 on PERC rule. Will be imaging with CT of the chest. INDICATION: Mild hypoxia, elevated D-dimer. TECHNIQUE: CT chest PE was acquired with 95 cc Isovue 370 IV contrast. COMPARISON: None. FINDINGS: Limited evaluation secondary to body habitus. Heart and vasculature: Contrast opacification of the pulmonary arterial tree is adequate. No sign of pulmonary embolism to the level of the distal segmental pulmonary arteries. Heart size is normal. Mild coronary artery calcifications. Thoracic aorta and pulmonary artery are normal in caliber. Lungs and pleura: Mosaic attenuation throughout the lungs. No suspicious nodules or infiltrates. No pleural effusions, pleural thickening, or pneumothorax. Lymph nodes/mediastinum: Small hiatal hernia. No mediastinal, hilar, or axillary adenopathy. Chest wall: No masses. Upper abdomen: No acute or significant findings. Bones: Unremarkable for age. IMPRESSION: Limited evaluation secondary to body habitus. No sign of pulmonary embolism to the level of the distal segmental pulmonary arteries. Evaluation of the subsegmental branches is nondiagnostic. Mosaic attenuation throughout the lungs which can be seen with small vessel/airway disease. No focal consolidations. And had been complaining of some posterior thigh pain bilaterally INDICATION: Elevated D-dimer. Posterior thigh pain, not otherwise described. COMPARISON: None available. TECHNIQUE: Static and compression grayscale and spectral (including color) Doppler ultrasound of the bilateral lower extremities. FINDINGS: Deep veins: The bilateral common femoral, deep femoral, superficial femoral, popliteal, posterior tibial, and peroneal veins are patent and free of clot. Superficial veins: The imaged bilateral great saphenous veins are patent and free of clot. Extravascular findings: No significant incidental findings. IMPRESSION: No evidence of DVT in either lower extremity. See patient discharge plan for further discussion Medical Records Medical records reviewed: Yes I reviewed the patient's medical records Lab Data Lab results reviewed: Yes I reviewed the patient's lab results Labs: Lab Results 09/28/23 09/28/23 09/28/23 Range/Units 11:20 11:26 11:55 WBC 7.69 (4.50-11.00) K/uL RBC 4.84 (4.00-5.20) m/uL Hgb 13.4 (12.0-16.0) gm/dL Hct 41.3 (33.0-51.0) % MCV 85 (80-100) fL MCH 28 (26-34) pg MCHC 32 (32-36) gm/dL RDW Coeff of Chito 15.7 H (11.5-15.5) % Plt Count 255 (140-440) K/uL Neut % (Auto) 63.3 (42.0-72.0) % Lymph % (Auto) 28.3 (20-44) % [place] % (Auto) 7.7 (0.0-11.0) % Eos % (Auto) 0.0 (0.0-7.0) % Baso % (Auto) 0.4 (0.0-3.0) % Neut # (Auto) 4.87 (1.7-7.0) K/uL Lymph # (Auto) 2.18 (0.90-2.90) K/uL [place] # (Auto) 0.60 (0.00-0.90) K/UL Eos # (Auto) 0.00 (0.00-0.50) K/uL Baso # (Auto) 0.03 (0.00-0.30) K/uL Abs Immat Gran (auto) 0.02 (0.00-0.30) K/uL Imm/Tot Granulo (auto) 0.3 % D-Dimer Quant (PE/DVT) 1.65 H (0.00-0.50) ug/ml Sodium 135 (135-149) mmol/L Potassium 3.4 L (3.6-5.1) mmol/L Chloride 95 L (96-114) mmol/L Carbon Dioxide 36 H (20-32) mmol/L Anion Gap 4 L (7-15) mEq/L BUN 14 (7-30) mg/dL Creatinine 0.9 (0.5-1.5) mg/dL Estimated Creat Clear 61.31 Estimated GFR 74 ml/min Glucose 104 (60-115) mg/dL Calcium 9.6 (8.4-10.6) mg/dL Magnesium 2.2 (1.5-2.6) mg/dL Total Bilirubin 0.4 (0.1-1.5) mg/dL Direct Bilirubin 0.2 (0.0-0.5) mg/dL AST 39 H (12-35) U/L ALT 28 (4-35) U/L Alkaline Phosphatase 105 (40-150) U/L C-Reactive Protein 3.4 H (0.5-1.0) mg/dL NT-Pro-B Natriuret Pep 80 pg/mL Total Protein 7.3 (6.0-8.3) g/dL Albumin 4.1 (3.3-5.0) g/dL Urine Color Yellow (Yellow) Urine Appearance Clear (Clear) Urine pH 8.5 (5.0-8.5) Ur Specific Tucker 1.015 (1.000-1.030) Urine Protein Negative (Negative) Urine Glucose (UA) Negative (Negative) Urine Ketones Negative (Negative) Urine Blood 3+ A (Negative) Urine Nitrite Negative (Negative) Urine Bilirubin Negative (Negative) Urine Urobilinogen 1.0 (0.2-1.0) Ur Leukocyte Esterase Negative (Negative) Urine RBC 0-2 (0-2) Urine WBC 0-2 (0-5) Ur Squamous Epith Cells Moderate A (None-Few) Urine Bacteria Few A (None) SARS-CoV-2 (PCR) Negative SARS-CoV-2 (Negative) Influenza Type A (PCR) Negative PCR FLU A (Negative) Influenza Type B (PCR) Negative PCR FLU B (Negative) RSV (PCR) Negative PCR RSV (Negative) ECG Data Attestation: I personally reviewed and interpreted this ECG as follows: (Normal sinus rhythm at a rate of 80) Discharge Plan Discharge Clinical Impression: Malaise, Leg pain Patient Disposition: Home, Self-Care Condition: Improved Additional Instructions: Do focus on hydration. I have included a handout here on stretches you might try for your hamstrings. This is not your diagnosis but I do suspect them to be tight. Radiology has not yet seen your ultrasound; I will call you if they have anything more to say about the ultrasound. As I said your CRP was elevated but unfortunately this is a nonspecific test. I think just implies that you have some inflammation present somewhere. As you said you heart looks good in the lab work and EKG at least. Return for persistent increasing shortness of breath, chest pain, unusual somnolence. Follow Up/Referrals: Concetta Valencia PA-C [Primary Care Provider] - Stand Alone Forms: [employer] Info Instructions
--- NOTE | 2023-09-28 11:14 | CRLHL7_ITS ---
For Patients: As a result of the Cures Act, medical imaging exams and procedure reports are released immediately into your electronic medical record. You may view this report before your referring provider. If you have questions, please contact your health care provider. INDICATION: Mild hypoxia, obesity. TECHNIQUE: Chest 2 views. COMPARISON: None. FINDINGS: No pneumothorax or pleural effusion. Lungs are clear. Cardiac and mediastinal contours are within normal limits. Upper abdomen and osseous structures as imaged show no acute abnormality. IMPRESSION: No evidence of acute cardiopulmonary disease. Dictated by Kuldip Chavez MD @ 09/28/2023 12:24:03 PM (Electronically Signed)
[2023-09-28] MEDS: 0.9 % SODIUM CHLORIDE 1000 ml 1,000 ML IV (11:30)
[2023-09-28 11:42] LABS: Basophils Absolute Auto 0.03 K/uL (0.00-0.30); Basophils Percent Auto 0.4 % (0.0-3.0); Hematocrit 41.3 % (33.0-51.0); Hemoglobin* 13.4 gm/dL (12.0-16.0); Immature Granulocytes Abs Auto 0.02 K/uL (0.00-0.30); Immature Granulocytes Pct Auto 0.3 %; Lymphocytes Absolute Auto 2.18 K/uL (0.90-2.90); Lymphocytes Percent Auto 28.3 % (20-44); Mean Corpuscular HGB Conc 32 gm/dL (32-36); Mean Corpuscular Hemoglobin 28 pg (26-34); Mean Corpuscular Volume 85 fL (80-100); Monocytes Percent Auto 7.7 % (0.0-11.0); Neutrophils Absolute Auto 4.87 K/uL (1.7-7.0); Neutrophils Percent Auto 63.3 % (42.0-72.0); Platelet Count* 255 K/uL (140-440); RDW Coefficient of Variation % 15.7 % (11.5-15.5); Red Blood Count 4.84 m/uL (4.00-5.20); White Blood Count* 7.69 K/uL (4.50-11.00)
[2023-09-28 11:45] LABS: Slide Review Reflex No
[2023-09-28 12:00] LABS: PCR FLU A Negative PCR FLU A (Negative); PCR FLU B Negative PCR FLU B (Negative); PCR RSV Negative PCR RSV (Negative); SARS PCR* Negative SARS-CoV-2 (Negative)
[2023-09-28 12:01] LABS: Chloride* 95 mmol/L (96-114); Sodium* 135 mmol/L (135-149)
[2023-09-28 12:02] LABS: Potassium* 3.4 mmol/L (3.6-5.1)
[2023-09-28 12:03] LABS: Albumin* 4.1 g/dL (3.3-5.0)
[2023-09-28 12:04] LABS: Creatinine* 0.9 mg/dL (0.5-1.5); Est. Creatinine Clearance* 61.31; Estimated Glomerular Filt Rate 74 ml/min
[2023-09-28 12:05] LABS: Anion Gap 4 mEq/L (7-15); Blood Urea Nitrogen* 14 mg/dL (7-30); Calcium* 9.6 mg/dL (8.4-10.6); Carbon Dioxide* 36 mmol/L (20-32); Glucose* 104 mg/dL (60-115)
[2023-09-28 12:06] LABS: Alanine Aminotransferase* 28 U/L (4-35); Alkaline Phosphatase* 105 U/L (40-150); Aspartate Amino Transferase* 39 U/L (12-35); Bilirubin Direct* 0.2 mg/dL (0.0-0.5); Bilirubin Total* 0.4 mg/dL (0.1-1.5); D Dimer Quantitative* 1.65 ug/ml (0.00-0.50); Magnesium* 2.2 mg/dL (1.5-2.6); Total Protein* 7.3 g/dL (6.0-8.3)
[2023-09-28 12:08] LABS: C Reactive Protein* 3.4 mg/dL (0.5-1.0)
[2023-09-28 12:18] LABS: Appearance Urine Clear (Clear); Bilirubin Urine Negative (Negative); Blood Urine 3+ (Negative); Color Urine Yellow (Yellow); Glucose Urine Negative (Negative); Ketones Urine Negative (Negative); Leukocyte Esterase Urine Negative (Negative); Nitrite Urine Negative (Negative); Protein Urine Negative (Negative); Specific Gravity Urine 1.015 (1.000-1.030); pH Urine 8.5 (5.0-8.5)
[2023-09-28 12:26] LABS: NT Pro B Type NatriureticPept* 80 pg/mL
--- NOTE | 2023-09-28 12:35 | CRLHL7_ITS ---
For Patients: As a result of the Century Cures Act, medical imaging exams and procedure reports are released immediately into your electronic medical record. You may view this report before your referring provider. If you have questions, please contact your health care provider. INDICATION: Mild hypoxia, elevated D-dimer. TECHNIQUE: CT chest PE was acquired with 95 cc Isovue 370 IV contrast. COMPARISON: None. FINDINGS: Limited evaluation secondary to body habitus. Heart and vasculature: Contrast opacification of the pulmonary arterial tree is adequate. No sign of pulmonary embolism to the level of the distal segmental pulmonary arteries. Heart size is normal. Mild coronary artery calcifications. Thoracic aorta and pulmonary artery are normal in caliber. Lungs and pleura: Mosaic attenuation throughout the lungs. No suspicious nodules or infiltrates. No pleural effusions, pleural thickening, or pneumothorax. Lymph nodes/mediastinum: Small hiatal hernia. No mediastinal, hilar, or axillary adenopathy. Chest wall: No masses. Upper abdomen: No acute or significant findings. Bones: Unremarkable for age. IMPRESSION: Limited evaluation secondary to body habitus. No sign of pulmonary embolism to the level of the distal segmental pulmonary arteries. Evaluation of the subsegmental branches is nondiagnostic. Mosaic attenuation throughout the lungs which can be seen with small vessel/airway disease. No focal consolidations. Please note that all CT scans at this facility use dose modulation, iterative reconstruction, and/or weight-based dosing when appropriate to reduce radiation dose to as low as reasonably achievable. Dictated by Emerson Prasad MD @ 09/28/2023 2:20:44 PM (Electronically Signed)
[2023-09-28 12:37] LABS: Bacteria Urine Few; RBC Urine 0-2 (0-2); Squamous Epithelial Cell Urine Moderate (None-Few); WBC Urine 0-2 (0-5)
--- NOTE | 2023-09-28 13:38 | CRLHL7_ITS ---
For Patients: As a result of the Century Cures Act, medical imaging exams and procedure reports are released immediately into your electronic medical record. You may view this report before your referring provider. If you have questions, please contact your health care provider. INDICATION: Elevated D-dimer. Posterior thigh pain, not otherwise described. COMPARISON: None available. TECHNIQUE: Static and compression grayscale and spectral (including color) Doppler ultrasound of the bilateral lower extremities. FINDINGS: Deep veins: The bilateral common femoral, deep femoral, superficial femoral, popliteal, posterior tibial, and peroneal veins are patent and free of clot. Superficial veins: The imaged bilateral great saphenous veins are patent and free of clot. Extravascular findings: No significant incidental findings. IMPRESSION: No evidence of DVT in either lower extremity. Dictated by Kristofer Lynch MD @ 09/28/2023 3:18:11 PM (Electronically Signed)
[2023-09-28 13:52] VITALS: BP 100/87; PULSE 64; RESP 18; O2SAT 95
== END 2023-09-28 15:12 | disposition home or self-care (01) ==
PROVIDERS: Emergency Provider Family Medicine; PCP Physician Assistant Medical
DX: M71.20 Synovial cyst of popliteal space [Baker], unspecified knee (principal)
CPT/HCPCS: 36415; 71046; 71275; 80048; 80076; 81001; 83735; 83880; 85025; 85379; 86140; 87086; 87186; 87631; 93005; 93970; 96360; 99283; 99284; 99285; J7030; Q9967

== ENCOUNTER 2023-10-21 07:14 | Emergency (ER) | payer OTHER, SELFPAY ==
[2023-10-21 07:24] VITALS: BP 153/98; PULSE 91; RESP 26; TEMP 36.6; O2SAT 95; BMI 68.2
--- NOTE | 2023-10-21 07:41 | ED.GENADULT ---
HPI - General Adult General Time Seen by Provider: 07:41 <Oc Akins MD - Last Filed: 10/23/23 07:31> Date Seen: 10/21/23 <Oc Akins MD - Last Filed: 10/23/23 07:31> Chief complaint: Lower Extremity Swelling <Oc Akins MD - Last Filed: 10/23/23 07:31> Stated complaint: Pain and swelling in both legs <Oc Akins MD - Last Filed: 10/23/23 07:31> Time Seen by Provider: 10/21/23 07:30 <Oc Akins MD - Last Filed: 10/23/23 07:31> Source: patient, RN notes reviewed and old records reviewed <Oc Akins MD - Last Filed: 10/23/23 07:31> Mode of arrival: ambulatory <Oc Akins MD - Last Filed: 10/23/23 07:31> Limitations: no limitations <Oc Akins MD - Last Filed: 10/23/23 07:31> History of Present Illness HPI narrative: 50-year-old female with history of lower extremity edema, on spironolactone, furosemide 40 80 mg daily, as well as metolazone twice a week who comes in today with bilateral leg pain and swelling. She did not wear her compression stocks last night, this morning noted increased swelling and pain in the legs. Swelling is diffuse, pain in the legs as behind the knees, worse on the right. No chest pain or shortness of breath, denies fever chills. <Oc Akins MD - Last Filed: 10/23/23 07:31> Related Data Allergies/adverse reactions: Allergies Allergy/AdvReac Type Severity Reaction Status Date / Time cefadroxil [From Duricef] Allergy Verified 10/21/23 07:24 sulfamethoxazole Allergy Verified 10/21/23 07:24 [From Bactrim] trimethoprim [From Bactrim] Allergy Verified 10/21/23 07:24 <Oc Akins MD - Last Filed: 10/23/23 07:31> PFSH PFSH Social History: Social History Smoking Status: Current every day smoker What tobacco products do you use: cigarettes Smoking packs per day: 5 Smoking cigarettes per day: 100.0 Do you use any of these nicotine containing products: None Second hand tobacco smoke exposure: No How often do you have a drink containing alcohol: never AUDIT-C Alcohol total score: 0 Non-prescribed substance use: denies use service: No <Oc Akins MD - Last Filed: 10/23/23 07:31> Exam Narrative: Exam Narrative: General: Well-developed and well-nourished, no acute distress, morbid obesity Head: Atraumatic and normocephalic Eyes: Pupils are equal reactive, extraocular motions intact, conjunctiva clear ENT: External nose and ears are normal, posterior pharynx without erythema or exudate Neck: No midline cervical tenderness, full spontaneous range of motion the neck, trachea midline, no adenopathy Heart: Regular rate and rhythm no murmurs or thrills Lungs: Clear to auscultation bilaterally with trace expiratory wheeze Abdomen: Soft, nontender, nondistended with active bowel sounds Musculoskeletal: Legs are symmetric, mild popliteal tenderness on the right, no calf tenderness Neurologic: Awake, alert, and oriented x3, no gross focal neurologic deficits, cranial nerves intact as tested Psych: Mood and affect are appropriate Skin: No rashes <Oc Akins MD - Last Filed: 10/23/23 07:31> Const: Vital Signs, click to edit/add: Vital Signs - 24 hr 10/21/23 07:24 Temperature 97.9 F Pulse Rate [Pulse Oximeter] 91 Respiratory Rate 26 H Blood Pressure [Ri ght Forearm] 153/98 H Pulse Oximetry 95 Oxygen Delivery Me thod Room Air <Oc Akins MD - Last Filed: 10/23/23 07:31> Vital Signs, click to edit/add: Vital Signs - 24 hr 10/21/23 07:24 Temperature 97.9 F Pulse Rate [Pulse Oximeter] 91 Respiratory Rate 26 H Blood Pressure [Ri ght Forearm] 153/98 H Pulse Oximetry 95 Oxygen Delivery Me thod Room Air <Arpit Bonner MD - Last Filed: 10/21/23 10:23> Course Course ED Course: Patient seen and examined, presents with bilateral lower extremity pain and swelling. On exam, or legs appear symmetric, she does have some popliteal tenderness on the right, no tenderness of the calves on either side. 1 0 this may be or fluid collection from not wearing compression stockings overnight, DVT is also possible and low ultrasound ordered. Consider also Medina cyst with. Patient does have slight wheezing on exam, says that is usual for her and unchanged. Labs ordered to evaluate for cardiac strain to heart failure. Sign out to oncoming provider at change of shift pending result <Oc Akins MD - Last Filed: 10/23/23 07:31> Vital Signs Vital signs: Initial Vital Signs Temperature 97.9 F 10/21/23 07:24 Temperature Source Temporal Artery Scan 10/21/23 07:24 Pulse Rate 91 10/21/23 07:24 Pulse Rhythm Regular 10/21/23 07:24 Respiratory Rate 26 H 10/21/23 07:24 Blood Pressure 153/98 H 10/21/23 07:24 Blood Pressure Mean 116 H 10/21/23 07:24 Blood Pressure Position Sitting 10/21/23 07:24 Pulse Oximetry 95 10/21/23 07:24 Oxygen Delivery Method Room Air 10/21/23 07:24 Vital Signs Temperature 97.9 F 10/21/23 07:24 Pulse Rate 91 10/21/23 07:24 Respiratory Rate 26 H 10/21/23 07:24 Blood Pressure 153/98 H 10/21/23 07:24 Pulse Oximetry 95 10/21/23 07:24 Oxygen Delivery Method Room Air 10/21/23 07:24 Temperature 97.9 F 10/21/23 07:24 Pulse Rate 91 10/21/23 07:24 Respiratory Rate 26 H 10/21/23 07:24 Blood Pressure 153/98 H 10/21/23 07:24 Pulse Oximetry 95 10/21/23 07:24 Oxygen Delivery Method Room Air 10/21/23 07:24 <Oc Akins MD - Last Filed: 10/23/23 07:31> Initial Vital Signs Temperature 97.9 F 10/21/23 07:24 Temperature Source Temporal Artery Scan 10/21/23 07:24 Pulse Rate 91 10/21/23 07:24 Pulse Rhythm Regular 10/21/23 07:24 Respiratory Rate 26 H 10/21/23 07:24 Blood Pressure 153/98 H 10/21/23 07:24 Blood Pressure Mean 116 H 10/21/23 07:24 Blood Pressure Position Sitting 10/21/23 07:24 Pulse Oximetry 95 10/21/23 07:24 Oxygen Delivery Method Room Air 10/21/23 07:24 Vital Signs Temperature 97.9 F 10/21/23 07:24 Pulse Rate 91 10/21/23 07:24 Respiratory Rate 26 H 10/21/23 07:24 Blood Pressure 153/98 H 10/21/23 07:24 Pulse Oximetry 95 10/21/23 07:24 Oxygen Delivery Method Room Air 10/21/23 07:24 Temperature 97.9 F 10/21/23 07:24 Pulse Rate 91 10/21/23 07:24 Respiratory Rate 26 H 10/21/23 07:24 Blood Pressure 153/98 H 10/21/23 07:24 Pulse Oximetry 95 10/21/23 07:24 Oxygen Delivery Method Room Air 10/21/23 07:24 <Arpit Bonner MD - Last Filed: 10/21/23 10:23> Medical Decision Making MDM Narrative Medical decision making narrative: This patient comes in with leg pain as described above. An ultrasound is obtained of both legs and shows no evidence of deep venous thrombosis. There is evidence of a popliteal cyst. The patient is reassured with these results and is okay to be discharged home. I advised her to follow-up with orthopedic department if needed for further evaluation and treatment. <Arpit Bonner MD - Last Filed: 10/21/23 10:23> Lab Data Labs: Lab Results 10/21/23 Range/Units 07:57 Sodium 135 (135-149) mmol/L Potassium 3.0 L (3.6-5.1) mmol/L Chloride 92 L (96-114) mmol/L Carbon Dioxide 39 H (20-32) mmol/L Anion Gap 4 L (7-15) mEq/L BUN 22 (7-30) mg/dL Creatinine 1.2 (0.5-1.5) mg/dL Estimated Creat Clear 45.98 Estimated GFR 52 ml/min Glucose 109 (60-115) mg/dL Calcium 9.4 (8.4-10.6) mg/dL Magnesium 2.3 (1.5-2.6) mg/dL NT-Pro-B Natriuret Pep 92 pg/mL <Oc Akins MD - Last Filed: 10/23/23 07:31> Lab Results 10/21/23 Range/Units 07:57 Sodium 135 (135-149) mmol/L Potassium 3.0 L (3.6-5.1) mmol/L Chloride 92 L (96-114) mmol/L Carbon Dioxide 39 H (20-32) mmol/L Anion Gap 4 L (7-15) mEq/L BUN 22 (7-30) mg/dL Creatinine 1.2 (0.5-1.5) mg/dL Estimated Creat Clear 45.98 Estimated GFR 52 ml/min Glucose 109 (60-115) mg/dL Calcium 9.4 (8.4-10.6) mg/dL Magnesium 2.3 (1.5-2.6) mg/dL NT-Pro-B Natriuret Pep 92 pg/mL <Arpit Bonner MD - Last Filed: 10/21/23 10:23> Imaging Data Venous US: Radiologist's impression: No deep vein thrombosis in either lower extremity. Slightly complex left popliteal fossa cyst. <Arpit Bonner MD - Last Filed: 10/21/23 10:23> Discharge Plan Discharge Clinical Impression: Popliteal cyst <Oc Akins MD - Last Filed: 10/23/23 07:31> Patient Disposition: Home, Self-Care <Oc Akins MD - Last Filed: 10/23/23 07:31> Condition: Unchanged <Oc Akins MD - Last Filed: 10/23/23 07:31> Additional Instructions: Continue current plans. Activity as tolerated. Follow-up with orthopedic clinic if not improving or worsening. <Oc Akins MD - Last Filed: 10/23/23 07:31> Follow Up/Referrals: Concetta Valencia PA-C [Primary Care Provider] - <Oc Akins MD - Last Filed: 10/23/23 07:31> Stand Alone Forms: MyHealth Info Instructions <Oc Akins MD - Last Filed: 10/23/23 07:31>
--- NOTE | 2023-10-21 07:44 | CRLHL7_ITS ---
For Patients: As a result of the Century Cures Act, medical imaging exams and procedure reports are released immediately into your electronic medical record. You may view this report before your referring provider. If you have questions, please contact your health care provider. INDICATION: Leg swelling and pain COMPARISON: None. TECHNIQUE: Rutledge-scale, color, and duplex Doppler imaging of the bilateral lower extremity veins. Compression and augmentation attempted where anatomically and clinically feasible. FINDINGS: Laterality: Bilateral Examined veins: Common femoral, femoral, popliteal, peroneal, posterior tibial Proximal greater saphenous The examined veins are patent with normal grayscale appearance and normal compressibility where anatomically feasible. Normal color Doppler flow. Normal venous waveforms on duplex Doppler ultrasound with normal augmentation. Left popliteal fossa cyst measures about 2 x 3 x 5 cm. There are some internal septations and debris. No right popliteal fossa cyst. IMPRESSION: No deep vein thrombosis in either lower extremity. Slightly complex left popliteal fossa cyst. Dictated by Marli Steiner MD @ 10/21/2023 10:11:50 AM (Electronically Signed)
[2023-10-21 08:21] LABS: Chloride* 92 mmol/L (96-114); Sodium* 135 mmol/L (135-149)
[2023-10-21 08:24] LABS: Creatinine* 1.2 mg/dL (0.5-1.5); Est. Creatinine Clearance* 45.98; Estimated Glomerular Filt Rate 52 ml/min
[2023-10-21 08:25] LABS: Anion Gap 4 mEq/L (7-15); Blood Urea Nitrogen* 22 mg/dL (7-30); Calcium* 9.4 mg/dL (8.4-10.6); Carbon Dioxide* 39 mmol/L (20-32); Glucose* 109 mg/dL (60-115); Magnesium* 2.3 mg/dL (1.5-2.6)
[2023-10-21 08:45] LABS: NT Pro B Type NatriureticPept* 92 pg/mL
== END 2023-10-21 10:33 | disposition home or self-care (01) ==
PROVIDERS: Emergency Provider Family Medicine; PCP Physician Assistant Medical
DX: M71.22 Synovial cyst of popliteal space [Baker], left knee (principal)
CPT/HCPCS: 36415; 80048; 83735; 83880; 93970; 99284

== ENCOUNTER 2023-12-03 14:06 | Outpatient (CLI) | payer OTHER, SELFPAY ==
--- NOTE | 2023-12-03 14:30 | MR_ITS ---
[address] [address] Phone:?[phone] Fax:?[phone] Referring Physician Information: Hal Max [address] [facility] [address] Phone:?[phone] Fax:?[phone] Patient:?Tejal Woodward D.O.B:?1965 Sex:?Female Phone:?[phone] [facility] MRN:?[id number] Exam Date:?12/03/2023 EXAM: MRI of the LEFT FOOT, including forefoot and midfoot, without contrast CLINICAL INFORMATION: Female, 58 years old, with left foot pain. INDICATION: Evaluate for stress fracture. PRIOR SURGERY: None reported. PLAIN FILMS: Radiographs 11/27/2023. COMPARISONS: No prior MRIs available. TECHNICAL INFORMATION: Using a 1.5T MR scanner and a localizing surface coil: sagittals: PD, T2 axials (long-axis): PD, T2, STIR coronals (short-axis): T1, STIR SEDATION: None CONTRAST: None FINDINGS: Osseous structures: Forefoot: No fracture, stress injury or marrow edema/pathology. Midfoot: No fracture, stress injury or marrow edema/pathology. Tarsal coalition: No calcaneonavicular or cubonavicular coalition. Joints: IP: No arthropathy or pathologic effusion. MTP: No arthropathy or pathologic effusion. TMT: No arthropathy or pathologic effusion. Tarsal: No arthropathy or pathologic effusion. Lisfranc joint ligamentous complex: Lisfranc ligament complex: Dorsal, interosseous and plantar ligaments are intact, without sprain or disruption. TMT/intermetatarsal ligaments: Intact without sprain/disruption. Myotendinous structures: Flexor tendons: Intact, without tendinopathy, tear, or tenosynovitis. Extensor tendons: Intact, without tendinopathy, tear, or tenosynovitis. Plantar aponeurosis: Normal, without ongoing fasciopathy, tear or mass, although its proximal aspect at calcaneus is not included. Intrinsic musculature: There is moderate to advanced atrophy of the intrinsic musculature of the foot. Soft tissues: No demonstrable plantar interdigital neuroma. Mild intermetatarsal bursitis between the second and third metatarsal heads There is extensive appearance of soft tissue thickening and subcutaneous edema along the dorsal aspect of the foot. The region of fluid collection is also seen along the dorsal medial aspect of the foot measuring approximately 0.5 x 1.7 x 0.6 cm (coronal series 6 image 34). IMPRESSION: 1. No convincing appearance of occult or displaced fracture in the visualized foot. 2. Joints of the foot appear intact without advanced arthrosis. 3. Extensive subcutaneous soft tissue edema and skin thickening along the dorsal aspect of the foot, with a region of fluid collection measuring 0.5 x 1.7 x 0.6 cm. 4. Mild intermetatarsal bursitis between the second and third metatarsal heads. 5. Moderate to advanced atrophy of the musculature of the foot. KME Electronically signed on 12/04/2023 4:37:00 PM by Scarlett Bray M.D.
== END 2023-12-03 14:07 | disposition home or self-care (01) ==
LOC: MRI 14:08
PROVIDERS: PCP Physician Assistant Medical; Visit Provider Physician Assistant
DX: M79.672 Pain in left foot (principal); M19.072 Primary osteoarthritis, left ankle and foot; M77.52 Other enthesopathy of left foot and ankle
CPT/HCPCS: 73718

== ENCOUNTER 2023-12-13 09:35 | Outpatient (CLI) | payer OTHER, SELFPAY ==
--- NOTE | 2023-12-13 09:45 | MR_ITS ---
[address] [address] Phone:?[phone] Fax:?[phone] Referring Physician Information: Hal Max [address] [facility] [address] Phone:?[phone] Fax:?[phone] Patient:?Tejal Woodward D.O.B:?1965 Sex:?Female Phone:?[phone] [facility] MRN:?[id number] Exam Date:?12/13/2023 EXAM: MRI of the LEFT ANKLE, without contrast CLINICAL: Left ankle and foot pain. Evaluate peroneals. COMPARISONS: X-rays 12/05/23. Foot MRI 12/03/2023. TECHNICAL: Multiplanar multisequence MRI of the left ankle was obtained. SEDATION: None. CONTRAST: None. FINDINGS: Evaluation of the axial and coronal sequences is relatively limited by artifact. Achilles tendon: There is mild to moderate tendinosis of the Achilles tendon. No significant tendon tear and there is no retrocalcaneal bursitis. Plantar fascia: There is thickening, irregularity and increased intermediate signal involving the proximal plantar fascia at the plantar calcaneal attachment consistent with changes of fasciitis. Minimal marrow edema involving the adjacent plantar calcaneus at the proximal plantar fascia attachment. Tarsal tunnel: No masses identified. Sinus Tarsi:?Normal fat within the sinus tarsi without significant scar, synovitis, or mass lesion. Ligaments: Anterior talofibular: Irregularity of the ligament consistent with sequelae of prior sprain injuries, without complete disruption. Calcaneofibular: No injury. Posterior talofibular: No injury. Syndesmotic:?The anterior inferior and posterior inferior tibiofibular ligaments are intact. Deltoid: Irregularity of the ligament consistent with sequelae of prior sprain injuries. Spring: Intact. Bifurcate and calcaneocuboid: Irregularity and ill-defined increased signal suggestive of sprain injury involving the bifurcate and dorsal lateral calcaneocuboid ligaments. Flexor tendons: Posterior tibial: Suspect minimal partial tearing of the distal tendon as it extends to the medial navicular attachment as visualized. Flexor digitorum longus: No evidence of tendon disruption as visualized. Flexor hallucis longus: Normal. Peroneus brevis and longus: There is minimal partial tearing of the peroneal brevis tendon as it courses along the posterior distal fibula. No peroneal tendon displacement. Extensor tendons: Tibialis anterior: Normal. Extensor hallucis longus: Normal. Extensor digitorum longus: Normal. Joints/Osseous structures: There is increased bone marrow edema involving the anterior calcaneus with mild subchondral marrow edema/cystic change involving the proximal cuboid at the calcaneocuboid articulation. Question of a tiny fracture involving the peripheral anterior calcaneus at the calcaneocuboid articulation. There is mild marrow edema involving the talar head. No talar dome osteochondral lesion. No significant joint effusion. There is marked edema throughout the subcutaneous soft tissues of the ankle and imaged lower leg extending into the foot, nonspecific. IMPRESSION: 1. Evaluation of some of the obtained sequences is limited by motion artifact. Increased marrow edema involves the anterior calcaneus extending into the calcaneocuboid articulation with question of a tiny fracture involving the peripheral anterior calcaneus at the calcaneocuboid articulation. Mild subchondral reactive changes involving the cuboid at the calcaneocuboid articulation. Mild marrow edema involving the talar head may reflect contusion or stress-related change. 2. Sequelae of sprain injuries involving the bifurcate and dorsal lateral calcaneocuboid ligaments. 3. Sequelae of prior sprain injuries involving the anterior talofibular and deltoid ligaments. 4. Minimal partial tearing of the peroneal brevis tendon as it courses along the posterior distal fibula. Peroneal tendons otherwise appear intact. Suspect minimal partial tearing of the distal posterior tibialis tendon. 5. Findings of plantar fasciitis. 6. Mild to moderate tendinosis of the Achilles tendon. 7. Marked edema throughout the subcutaneous soft tissues of the ankle and imaged lower leg extending into the foot, nonspecific. EVELINA Electronically signed on 12/14/2023 12:43:00 PM by Jason Whitfield D.O.
== END 2023-12-13 09:36 | disposition home or self-care (01) ==
LOC: MRI 09:36
PROVIDERS: PCP Physician Assistant Medical; Visit Provider Physician Assistant
DX: M25.572 Pain in left ankle and joints of left foot (principal); S93.412S Sprain of calcaneofibular ligament of left ankle, sequela; S93.492S Sprain of other ligament of left ankle, sequela; S96.812A Strain of other specified muscles and tendons at ankle and foot level, left foot, initial encounter; M72.2 Plantar fascial fibromatosis
CPT/HCPCS: 73721

== ENCOUNTER 2024-04-02 17:16 | Emergency (ER) | payer OTHER, SELFPAY ==
--- OUTSIDE RECORDS SUMMARY | 2024-04-02 17:18 | XMS_ITS | Clinical Summary ---
Author Organization [employer] Address [place], [place] [address] Care Team Providers Care Seo Professional Name Role Phone Concetta Valencia Primary Care Provider Desire Butts NP Unavailable Oc Morocho RN Unavailable Lb Gilliland MD Unavailable Amna Jackson RN Unavailable [phone] Allergies Active Allergy Reactions Criticality Noted Date Comments Adhesive Erythema 10/24/2012 Sulfamethoxazole-Trimethop rim *Unknown - Pt Doesn't Remember 09/17/2006 Cefadroxil Respiratory Distress 03/22/2007 Gabapentin Insomnia 11/15/2007 Medications multivitamin capsule Take 1 capsule by mouth once daily. 0 012 Active calcium carbonate-vitamin D3, 600 mg-125 unit, (CALCIUM 600 + D) tablet Take 1 tablet by mouth 2 times daily with meals. 0 016 Active Cholecalciferol, Vitamin D3, (VITAMIN D-3) 5,000 unit tab Take by mouth once daily. 0 016 Active Walker - 4 wheelsIndications :Injury of left knee, initial encounter,Primary osteoarthritis of both knees With seat. Bariatric weight. For home use. Length of need: 99 1 Device 021 Active Walker - 4 wheelsIndications :Bilateral primary osteoarthritis of knee With upright forearm attachments for more upright posture. For home use. Length of need: 99 1 Each 023 Active durable medical equipment (DME)Indications: Osteoarthritis of carpometacarpal (CMC) joint of left thumb, unspecified osteoarthritis type Thumb brace for cmc osteoarthritis. 1 Each 023 Active Graduated Compression StockingsIndicati ons:Bilateral leg edema For personal use. Length: Knee Strength: 20-30 mmHg Circumference in cm: 1 Packet 3 023 Active celecoxib (CELEBREX) 200 mg capsuleIndication s:Lumbar facet arthropathy TAKE 1 CAPSULE BY MOUTH 2 TIMES DAILY IF NEEDED FOR PAIN. 180 Capsule 3 023 Active levothyroxine (SYNTHROID) 200 mcg tabletIndications :Hypothyroidism, acquired Take 1 Tablet (200 mcg) by mouth once daily. 90 Tablet 3 024 Active levothyroxine (SYNTHROID) 50 mcg tabletIndications :Hypothyroidism, acquired Take 1 Tablet (50 mcg) by mouth before breakfast. Take in addition to 200 mcg for total of 250 mcg daily. 90 Tablet 3 024 Active buPROPion (WELLBUTRIN SR) 150 mg Sustained-Release tabletIndications :Mild episode of recurrent major depressive disorder (HC) Take 2 Tablets (300 mg) by mouth once daily in the morning. 180 Tablet 3 024 Active pantoprazole (PROTONIX) 40 mg delayed-release tabletIndications :Gastroesophageal reflux disease, unspecified whether esophagitis present Take 1 Tablet (40 mg) by mouth once daily. 90 Tablet 3 024 Active pramipexole (MIRAPEX) 1 mg tabletIndications :Restless legs syndrome (RLS) TAKE 1 AND 1/2 TABLETS BY MOUTH AT BEDTIME NEEDED 135 Tablet 2 024 Active cyclobenzaprine (FLEXERIL) 10 mg tabletIndications :Primary osteoarthritis of both knees TAKE 1 TABLET(10 MG) BY MOUTH THREE TIMES DAILY NEEDED FOR PAIN 60 Tablet 2 024 Active potassium chloride (KLOR-CON M20) 20 mEq extended-release tablet (part/cryst)Indic ations:Bilateral leg edema Take 3 Tablets (60 mEq) by mouth once daily. Take extra tab if taking metolazone once or twice weekly 90 Tablet 3 024 Active dextroamphetamine -amphetamine (AdderalL) 20 mg tabletIndications :Attention deficit disorder, unspecified hyperactivity presence Take 1 Tablet (20 mg) by mouth once daily. 30 Tablet 024 Active spironolactone (ALDACTONE) 50 mg tabletIndications :Hypokalemia,Bila teral lower extremity edema TAKE 1 TABLET(50 MG) BY MOUTH DAILY 90 Tablet 1 024 Active dextroamphetamine -amphetamine (Adderall XR) 25 mg Extended-Release capsuleIndication s:Attention deficit disorder, unspecified type Take 1 Capsule (25 mg) by mouth once daily. 30 Capsule 025 Active ALPRAZolam (XANAX) 0.25 mg tabletIndications :Anxiety Take 1 tab twice daily as needed for anxiety. 20 Tablet 024 Active topiramate (TOPAMAX) 25 mg tabletIndications :Morbid obesity with BMI of 60.0-69.9, adult (HC) Take 2 Tablets (50 mg) by mouth at bedtime. 60 Tablet 024 Active furosemide (LASIX) 40 mg tabletIndications :taking 2 tabs 5 days a week, and 1 tab 2 days a week Take 1-2 Tablets (40-80 mg) by mouth once daily in the morning. 180 Tablet 1 024 Active metOLazone (ZAROXOLYN) 5 mg tabletIndications :taking twice weekly Take 1 tab twice weekly. 20 Tablet 025 Active gabapentin (NEURONTIN) 300 mg capsuleIndication s:Chronic bilateral low back pain with bilateral sciatica Take 1 Capsule (300 mg) by mouth two times daily. 180 Capsule 1 025 Active oxyCODONE-acetami nophen (Percocet) 5-325 mg per tabletIndications :Primary osteoarthritis of both knees Take 1 Tablet by mouth 3 times daily if needed for Pain. Take for chronic knee pain. Max acetaminophen dose: 4000mg in 24 hrs. 60 Tablet 025 Active gabapentin (NEURONTIN) 300 mg capsuleIndication s:Chronic bilateral low back pain with bilateral sciatica Take 1 Capsule (300 mg) by mouth two times daily. 180 Capsule 1 024 2024 Discontinued(R eorder (E-cancel not sent)) metOLazone (ZAROXOLYN) 5 mg tabletIndications :SOB (shortness of breath),Bilateral lower extremity edema TAKE 1 TABLET BY MOUTH ONCE DAILY IN THE AM 20 Tablet 024 2024 Discontinued dextroamphetamine -amphetamine (Adderall XR) 25 mg Extended-Release capsuleIndication s:Attention deficit disorder, unspecified type Take 1 Capsule (25 mg) by mouth once daily. 30 Capsule 024 2024 oxyCODONE-acetami nophen (Percocet) 5-325 mg per tabletIndications :Primary osteoarthritis of both knees Take 1 Tablet by mouth 3 times daily if needed for Pain. Take for chronic knee pain. Max acetaminophen dose: 4000mg in 24 hrs. 60 Tablet 024 2024 Discontinued(R eorder (E-cancel not sent)) Active Problems Patient Care Coordination No te Formatting of this note is d ifferent from the original. Weight Management - Adult Surgical Program Patient Received Binder: Yes Part of KTYA Program: no RDC or GS Patient: No Initial Consult / Established Care 01/05/[address] Lb Jackson RN [facility] Candidate: no Intake: Wt Readings from Last 1 Encounters: 01/05/23 (!) 196.4 kg (433 lb) lbs, Ht Readings from Last 1 Encounters: 01/05/23 1.651 m (5' 5) BMI: 72.05 Planned Operation Sleeve Gastrectomy Payor: PREFERRED ONE / Plan: PREFERRED ONE / Product Type: *No Product type* / Insurance requirements:None Est. Pgm Completion: ~ June, Procedure Location: [facility] Co-morbidities: dyslipidemia, GERD, and GROVER Orders: Labs Yes - RESULTED 05/17/2023: wnl Imaging / Procedures GB out Pre-Surgery Program Consults: - Registered Dietitian 3 - Psychological Evaluation: yes Referrals: Yes - PT: -Tobacco Cessation: reports that she has been smoking cigarettes. She started smoking about 40 years ago. She has a 20.4 pack-year smoking history. She has never used smokeless tobacco. Future Appointments Date Time Provider Department Center 02/02/2023 8:00 AM Scarlett Joe, PhD, [facility] 02/02/2023 11:00 AM Desire Butts IT SECURITY ENGINEER PRAFUL DAVID Problem Noted Date Diagnosed Date Primary osteoarthritis of both knees 03/11/2021 Hypothyroidism, acquired 12/07/2014 Bilateral carpal tunnel syndrome 06/29/2014 Cholecystitis with cholelithiasis 04/12/2013 Morbid obesity with BMI of 60.0-69.9, adult 02/0 10/2013 HPTH (hyperparathyroidism) 01/21/2013 Degeneration of cervical intervertebral disc 10/2012 Cervical facet joint syndrome 06/10/2012 Adenomatous colon polyp 11/01/2011 Overview (11/01/2011): Colonoscopy 10/2011 polyps repeat in 5 years Hip arthritis 08/25/2011 GROVER 06/23/2011 AHI-10, nonsupine REM-32 2 Lumbar facet arthropathy 10/10/2010 Esophageal reflux 08/12/2010 Hypothyroid 07/22/2010 Lumbar disk bulging at L5-S1 05/27/2010 Vitamin D deficiency 11/11/2009 Degeneration of cervical intervertebral disc 04/2008 Achilles bursitis or tendinitis 03/22/2007 Plantar fascial fibromatosis 03/22/2007 Restless legs syndrome (RLS) 03/22/2007 Tobacco use disorder 02/21/2007 MOBITZ 1 AB HEART BLOCK Unspecified hypothyroidism Allergic rhinitis, cause unspecified Morbid obesity Resolved Problems Problem Noted Date Diagnosed Date Resolved Date Low back pain 11/17/2010 02/07/2013 Encounters Date Type Department Care Team Description 04/02/2024 Nurse Triage [facility] [address] [place] [address] Concetta Valencia PA Abdominal Pain 03/26/2024 1:20 PM [employer] Office Visit [facility] [address] [place] [address] Concetta Valencia PA Ear Problem (Ringing in ears x 1 month) 03/26/2024 Travel 03/04/2024 4:20 PM [employer] Ancillary Procedure [facility] [address] [place] [address] 03/04/2024 Travel 03/04/2024 Refill [facility] [address] [place] [address] Concetta Valencia PA Refill Request (Levothyroxine, Metolazone) 02/15/2024 1:00 PM [employer] Procedure Only [facility] [address] [facility] [address] Jayy Fritz MD Procedure (Ultrasound guided injection rig... 02/15/2024 Travel 02/13/2024 Refill [facility] [address] [place] [address] Concetta Valencia PA Refill Request (Furosemide) 02/04/[address] [phone] Alicia Land PA Refill Request (Topiramate) 02/03/[address] [phone] Alicia Land PA Refill Request (Topiramate) 01/23/2024 1:20 PM [employer] Office Visit [facility] [address] [place] [address] Concetta Valencia PA Concerns (Brain fog, body hurts, legs are shaky, weak, getting crabby / jaramillo) 01/23/2024 Travel 01/13/2024 Refill [facility] [address] [place] [address] Concetta Valencia PA Refill Request (Spironolactone) 01/09/2024 Travel 01/04/2024 Telephone [facility] [address] [place] [address] aJyy Fritz MD Questions 01/01/[address] [phone] Alicia Land PA Refill Request (Topiramate) 01/01/2024 Travel 01/01/[address] [phone] Alicia Land PA Prior Authorization (Zepbound 2.5 mg/0.5 mL pen - EXCLUDED) from Last 3 Months Immunizations Name Administration Dates Next Due COVID-19 vaccine ([employer] 30mcg/0.3mL) PF, MDV 03/30/2020,03/09/2020 INFLUENZA, IIV3 PF (AGE >= 6 MO) 01/23/2024 Influenza Intradermal PF 18-64 yrs 12/14/2014 Influenza RIV4 (Age 18+ Year s) PRESERV FREE 12/11/2018 Influenza Virus, Unspecified 12/19/2016, 01/17/2010(Deferred: Patient Refused) Influenza, IIV3 (Age 6-35 mos) 0,12/12/2017,12/25/2012,2011,12/20/2010 Influenza, IIV3 (Age >=3 years) 02/01/2010 Influenza, IIV4 01/18/2022, 8,12/28/2016,2015 Pneumococcal Poly,23-Valent (Pneumovax) 02/01/2010 Polio Virus, Unspecified 07/17/1978 Td (Age >=7 Years) 12/01/2005 Tdap 03/01/2016,12/07/2011 Zoster (Shingrix-RZV, recombinant) 01/23/2024, Family History Medical History Relation Name Comments Coronary artery disease Father 86 Hyperlipidemia Father 86 Other Father 86 heart attack Obesity Maternal Grandfather 56 Coronary artery disease Maternal Grandmother 88 Other Maternal Grandmother 88 congeni nick heart failure Other Maternal Uncle Obesity Anxiety disorder Mother 76 Arthritis Mother 76 Depression Mother 76 Obesity Mother 76 Other Mother 76 Obesity Cancer Paternal Aunt Lung Coronary artery disease Paternal Grandfather 72 Other Paternal Grandfather 72 heart a ttack Anxiety disorder Sister 1 54 Depression Sister 1 54 Hyperlipidemia Sister 1 54 Anxiety disorder Sister 2 46 Depression Sister 2 46 Anxiety disorder Sister 3 Arthritis Sister 3 Depression Sister 3 Cancer-breast No Family History Relation Name Status Comments Father 86 Alive Alive & Well Maternal Grandfather 56 Maternal Grandmother 88 Maternal Uncle Mother 76 Alive Hypothyroid Htn Heart Disease Paternal Aunt Paternal Grandfather 72 Paternal Grandmother 90 Sister 1 54 Alive Alive & Well Sister 2 46 Alive Alive & Well Sister 3 Alive Social History Tobacco Use Types Packs/Day Years Used Date Smoking Tobacco: Every Day Cigarettes 0.5 42.1 Started: 1982 Smokeless Tobacco: Never Tobacco Cessation:Ready to Q uit: No; Counseling Given: Yes Comments:starting chantix soon Alcohol Use Standard Drinks/Week Comments Yes 1 (1 standard drink = 0.6 oz pure alcohol) minimal - once or twice a month PHQ-2 Answer Date Recorded PHQ-2 TOTAL SCORE 4 07/20/2023 Social Connections Answer Date Recorded Do you often feel lonely or isolated from those around you? 0 01/23/2024 Financial Resource Strain Answer Date R ecorded Difficulty of Paying Living Expenses 3 01/23/2024 Difficulty of Paying Living Expenses Not on file 01/23/2024 Food Insecurity Answer Date Recorded Do you worry your food will run out before you are able to buy more? 1 01/23/2024 Transportation Needs Answer Date Record ed Does lack of transportation keep you from medica l appointments? 1 01/23/2024 Does lack of transportation keep you from work, meetings or getting things that you need? 1 01/23/2024 Housing Stability Answer Date Recorded What is your housing situation today? 1 01/23/2024 Utilities Answer Date Recorded Do you have trouble paying f or utilities (for example, heat, electricity, water, phone)? 1 01/23/2024 Comments No Sex and Gender Information Value Date Recorded Sex Assigned at Not on file Legal Sex Female 5:24 AM [employer] Gender Identity Not on file Sexual Orientation Not on file Obstetrics History Last Filed Vital Signs Vital Sign Reading Time Taken Comments Blood Pressure 131/72 03/26/2024 1:26 PM [employer] Pulse 97 03/26/2024 1:26 PM [employer] Temperature 36.8 C (98.2 F) 02/15/2024 12:59 PM [employer] Respiratory Rate 12 02/24/2013 9:15 AM [employer] Oxygen Saturation 97% 02/15/2024 12:59 PM [employer] Inhaled Oxygen Concentration - - Weight 179.2 kg (395 lb) 03/26/2024 1:26 PM [employer] Height 165.1 cm (5' 5) 12/27/2023 2:00 PM CDT Body Mass Index 65.73 12/27/2023 2:00 PM CDT Plan of Treatment Upcoming Encounters Date Type Department Care Team (Late st Contact Info) Description 05/01/2024 3:00 PM [employer] Nutrition/Dieticia n [facility] [address] [place] [phone] Alejandrina Leon, RD [address] [facility], [place] [phone] 05/06/2024 1:00 PM [employer] Office Visit [facility] [address] [place] [address] Alicia Land PA [address] [place] [address] Health Maintenance Due Date Last Done Comments HIV for age 15-65 01/12/1980 Hepatitis C screening for ag e 18-79 1983 Pneumococcal series for age 50+ (2 of 2 - PCV) 02/01/2011 02/01/2010 Pap test for age 21-65 05/27/2013 05/27/2010 (Postpo matt) Low Dose CT (for lung CA) ag e 50-80 2015 06/21/2012 COVID-19 vaccine series ( season) 2023 03/30/2020, 03/09/2020 Depression screening for age 12+ 07/19/2024 07/20/2023, 05/28/2023, 05/21/2023, Additional history exists BMI (ht and wt on same day) for age 18+ 12/26/2024 12/27/2023, 10/17/2023, 07/20/2023, Additional history exists Mammogram for age 45-75 03/04/2025 03/04/20, 02/06/2023, 02/21/2021, Additional history exists Tetanus booster 03/01/2026 03/01/2016, 1006/2011, 12/01/2005 Colonoscopy through age 75 07/22/202707/21, 02/21/2017, 10/26/2011 Lipids for age 45-75 12/14/2027 12/13/2022, 05/15/2022, 07/28/2011, Additional history exists Tdap Completed 03/01/2016, 12/07/2011 Influenza for age 50-64 Completed 01/23/20, 01/18/2022, 12/11/2018, Additional history exists Zoster (shingles) series for age 50+ Completed 01/23/2024, 07/22/2021 Procedures Procedure Name Priority Date/Time Associated Diagnosis Comments XR MAMMO SHAUNA BILAT SCREEN Routine 03/04/2024 4:34 PM [employer] Visit for screening mammogram BEDSIDE US STUDY ARCHIVE Routine 02/15/2024 3:51 PM [employer] Primary osteoarthritis of right knee TSH WITH REFLEX Routine 01/23/2024 2:25 PM [employer] Hypothyroidism, unspecified type BASIC METABOLIC PANEL Routine 01/23/2024 2:25 PM [employer] Low blood potassium LIPID PANEL W REFLEX MEASURED LDL Routine 12/13/2022 9:22 AM CDT Morbid obesity with BMI of 60.0-69.9, adult (HC) SCAN-COLONOSCOPY 07/21/2022 12:[address] CHEST WO Routine 06/21/2012 Unspecified pleural effusion from Last 3 Months or Most Recently Relevant to Health Maintenance Results * XR MAMMO SHAUNA BILAT SCREEN (03/04/2024 4:34 PM SERVIC[employer]) Anatomical Region Laterality Modality BREASTS, Breast Left, Breast Right Bilateral Mammography Impressions 03/04/2024 4:48 PM [employer] There is no radiographic evidence for malignancy. Recommend annual mammograms. MAMMOGRAM ASSESSMENT: ACR 1 Negative PATIENTS: You will also receive a letter with your examination results in an easy to read format. If you have questions about your results, please contact your referring provider. Narrative 03/04/2024 4:48 PM [employer]IC[employer] TRA[employer] For Patients: As a result of the Century Cures Act, medical imaging exams and procedure reports are released immediately into your electronic medical record. You may view this report before your referring provider. If you have questions, please contact your health care provider. XR MAMMO SHAUNA BILAT SCREEN [[id number]] CLINICAL HISTORY: This is an asymptomatic 59 y.o. patient. INDICATION FOR EXAM: Mammogram Screening. TECHNIQUE: CC & MLO views were obtained. This study was evaluated with the assistance of Computer-Aided Detection. Breast Tomosynthesis was used in interpretation. COMPARISON FILM: Yes 02/21/21 [facility] FINDINGS: There are scattered areas of fibroglandular density. There are no dominant masses, suspicious micro calcifications or areas of architectural distortion. Concetta PECK MAMMO Final R esult * BEDSIDE US STUDY ARCHIVE (02/15/2024 3:51 PM [employer]IC[employer]) Narrative Herrera Meeta Melani - 02/15/2024 3:51 PM SERVICER TRA[employer] TRAIL[employer] The patient was seen for ultrasound guided injection by Dr. Jayy Fritz. Ultrasound was not used for diagnostic purposes, but to guide the needle placement and document the position of the injection. See patient's EPIC encounter for the detail of the procedure; see JUMA for saved images of the injection. Result [facility] Jayy Fritz MD PROCEDURE ORD Final Resu lt * TSH WITH REFLEX (01/23/2024 2:25 PM SERVICER TRA[employer]IL[employer]) TSH W/REFLEX TO FT4 3.84 0.40 - 4.50 mIU/L [facility] Blood BLOOD SPECIMEN / Unknown 01/23/2024 2:25 PM [employer] 01/23/2024 2:25 PM [employer]IC[employer] TRA[employer] TRAIL[employer] Concetta PECK CHEMISTRY Final R esult [facility] [address] [place] [address], [place] [phone] [facility] [address] [place] [address] * (ABNORMAL) BASIC METABOLIC PANEL (01/23/2024 2:25 PM SERVICER TRA[employer] TRAIL[employer]) Pathologist [facility] GLUCOSE 94 65 - 99 mg/dL [facility] Comment: Fasting reference interval UREA NITROGEN (BUN) 18 7 - 25 mg/dL [facility] CREATININE 1.29(H) 0.50 - 1.03 mg/dL [facility] EGFR 48(L) > OR = 60 mL/min/1.7 3m2 [facility] BUN/CREATININE RATIO 14 6 - 22 (calc) [facility] SODIUM 139 135 - 146 mmol/L [facility] POTASSIUM 4.4 3.5 - 5.3 mmol/L [facility] CHLORIDE 91(L) 98 - 110 mmol/L [facility] CARBON DIOXIDE 35(H) 20 - 32 mmol/L [facility] ELECTROLYTE BALANCE 13 7 - 17 mmol/L (calc) [facility] CALCIUM 9.7 8.6 - 10.4 mg/dL [facility] Blood BLOOD SPECIMEN / Unknown 01/23/2024 2:25 PM [employer]IL[employer] 01/23/2024 2:25 PM SERVICER TRA[employer]EL TRAILERS Concetta PECK CHEMISTRY Final R esult [facility] [address] [place] [address], [facility] [address] [place] [address] * (ABNORMAL) LIPID PANEL W REFLEX MEASURED LDL (12/13/2022 9:22 AM CDT) Pathologist [facility] CHOLESTEROL,TOTAL 203(H) 100 - 199 mg/dL 12/13/2022 4:43 PM CDT [facility] Comment: Cholesterol, Total Reference Ranges Desirable <200 mg/dL Borderline 200-239 mg/dL High >=240 mg/dL TRIGLYCERIDES 88 <150 mg/dL 12/13/2022 4:43 PM CDT [facility] HDL CHOLESTEROL 55 >40 mg/dL 4:43 PM CDT [facility] NON-HDL CHOLESTEROL 148(H) <145 mg/dl 12/13/2022 4:43 PM CDT [facility] CHOL/HDL RATIO 3.69 <4.50 12/13/2022 4:43 PM CDT [facility] LDL CHOLESTEROL 130 <=130 mg/dL 12/13/2022 4:43 PM CDT [facility] VLDL CHOLESTEROL 18 <=30 mg/dL 12/13/2022 4:43 PM CDT [facility] PROVIDER ORDERED STATUS RANDOM 12/13/2022 4:43 PM CDT [facility] Blood BLOOD SPECIMEN / Unknown Venipuncture / Unknown 12/13/2022 9:22 AM CDT 12/13/2022 9:26 AM CDT us Desire Butts NP CHEMISTRY Final Res ult [facility] [address] [place] [address], * SCAN-COLONOSCOPY (07/21/2022 12:00 AM CDT) us Scanner OTHER Final Result * CT CHEST WO (06/21/2012) Anatomical Region Laterality Modality CHEST, THORAX, HEART Other us Emmy Bauer MD CT Final Result from Last 3 Months or Most Recently Relevant to Health Maintenance Insurance [facility] Advance Directives * Full Code (Latest Code Status on File) Date Activated Date Inactivated Comments 10/24/2012 1:36 PM 10/25/2012 4:16 PM * Full Code Date Activated Date Inactivated Comments 10/24/2012 10:54 AM 10/24/2012 1:36 PM Care Teams Seo Professional Relationship Specialty Start Date End Date Concetta Valencia PA [address] [place] [address] PCP - General Family Practice 07/04/13 Desire Butts NP [address] [place] [address] [place] [address] Nurse Practitioner - Family 11/21/22 Oc Morocho, RAMANDO [address] [place] [address] Registered Nurse 11/21/22 Lb Gilliland MD [address] [address] Consulting Physician Surgery - General 01/05/23 Amna Jackson RN [address] [address] Alternative Energy Technician Registered Nurse 01/05/23
--- OUTSIDE RECORDS SUMMARY | 2024-04-02 17:18 | XMS_ITS | Clinical Summary ---
Author Organization [facility] [place] [place] Address [address] [place], [place] [address] Phone Care Team Providers Care Cafeteria Food Server Name Role Phone Concetta ValenciaC Primary Care Provider Allergies Active Allergy Reactions Criticality Noted Date Comments Adhesive Tape Other (see comments) 10/24/2012 Cefadroxil Other (see comments) 03/22/2007 Gabapentin Other (see comments) 11/15/2007 Sulfamethoxazole-Trimethoprim Other (see comments) 09/17/2006 Medications Calcium Carbonate-Vitam in D 600-3.125 MG-MCG tablet Take 1 tablet by mouth 1 (one) time each day 6 Active Cholecalciferol 125 MCG (5000 UT) tablet Take 5,000 Units by mouth in the morning. 6 Active gabapentin (NEURONTIN) 300 MG capsule Take 300 mg by mouth in the morning and 300 mg in the evening. 3 Active cyclobenzaprine (FLEXERIL) 10 MG tablet Take 10 mg by mouth 3 (three) times a day if needed 3 Active celecoxib (CeleBREX) 200 MG capsule Take 200 mg by mouth 2 (two) times a day if needed 3 Active nystatin (MYCOSTATIN) powder Apply 1 strip topically in the morning and 1 strip at noon and 1 strip in the evening. 4 Active metOLazone 5 MG tablet Take 5 mg by mouth 2 (two) times a week 4 Active levothyroxine (SYNTHROID, LEVOTHROID) 200 MCG tablet Take 200 mcg by mouth in the morning. 4 Active levothyroxine (SYNTHROID, LEVOTHROID) 50 MCG tablet Take 50 mcg by mouth in the morning. 4 Active buPROPion SR (WELLBUTRIN SR) 150 MG 12 hr tablet Take 300 mg by mouth in the morning. 4 Active furosemide (LASIX) 40 MG tablet Take 80 mg by mouth in the morning. 4 Active pramipexole (MIRAPEX) 1 MG tablet TAKE 1 AND 1/2 TABLETS BY MOUTH AT BEDTIME NEEDED 4 Active pantoprazole (PROTONIX) 40 MG EC tablet Take 40 mg by mouth in the morning. 4 Active oxyCODONE-aceta minophen (PERCOCET) 5-325 MG per tablet Take 1 tablet by mouth 3 (three) times a day if needed 4 Active potassium chloride (KLOR-CON) 20 MEQ packet Take 80 mEq by mouth in the morning and 80 mEq in the evening. 2 days a week. . Active MULTIPLE VITAMIN PO Take 1 tablet by mouth 1 (one) time each day Active amphetamine-dex troamphetamine XR (ADDERALL XR) 20 MG 24 hr capsule Take 20 mg by mouth in the morning. 4 Active amphetamine-dex troamphetamine (ADDERALL) 20 MG tablet Take 20 mg by mouth in the morning and 20 mg in the evening. 4 Active Tirzepatide-Kevin ght Management (Zepbound) 2.5 MG/0.5ML solution auto-injector Inject 2.5 mg under the skin 1 (one) time per week 4 Active spironolactone (ALDACTONE) 50 MG tablet Take 50 mg by mouth in the morning. 4 Active potassium chloride (KLOR-CON M20) 20 MEQ CR tablet Take 60 mEq by mouth Five days a week 4 Active Active Problems Problem Noted Date Diagnosed Date Generalized edema 08/14/2023 Assessment & Plan (12/18/2023 4:08 PM CDT): Improved. Weight has fallen by 23 pounds since seen last. Patient is more comfortable. More than appropriate to continue her current medication/diuretic regimen including furosemide, spironolactone, and metolazone. We will tentatively plan to follow-up again with Tejal in 1 year. She was encouraged to call with any questions or concerns in the interim. Assessment & Plan (08/14/2023 4:54 PM CDT): Unstable. Patient expressing significant lower extremity edema,. No evidence of heart failure by echocardiogram criteria. No evidence of kidney failure or nephrosis. No evidence of liver failure. I suspect that the propensity for fluid retention in this unique patient is derived from physiologic derangement resulting from (possible) untreated sleep apnea leading towards pulmonary hypertension (not appreciated on echocardiogram) +/- hypoventilation syndrome, etc. She has been able to lose roughly 7 pounds on the current diuretic regimen that she is on. There are many paths that we can take to manage this and we explored them today. First and foremost we will be of utmost importance to diminish fluid intake to no more than 40-44 ounces total fluid per day. In addition, I would consider avoidance of any and all nonsteroidal anti-inflammatory agents as well as Manuel 2 inhibitors (orally ingested as well as topicals). In addition, consider down titration and/or complete and lamination of gabapentin (this can contribute to fluid retention since it tends to be a vasodilator. Finally, it would be important to address untreated sleep apnea with an updated sleep study but this can certainly be placed of lower priority at the moment. Obviously the patient is at higher than average risk for muscle cramping and/or electrolyte abnormalities on the diuretic regimen that she is on. Currently, with most recent laboratories from 02 August, her supplementation appears very adequate. In addition to fluid restriction, the following recommendations can be pursued with the diuretic regimen: 1. Change furosemide to 80 mg twice daily and take metolazone thrice weekly. 2. Continue furosemide at 80 mg once a day, start metolazone 5 mg once a day. 3. Change furosemide to 80 mg twice daily and not take metolazone to assess clinical response first. 4. Continue alternating furosemide 80 mg once daily with metolazone 5 mg (as she is doing at this time). Patient chose to continue option #4 for the time being. And reassessing how she is doing with weight loss following the implementation of fluid restriction as described above. If patient is not doing well and/or has hit a roadblock with fluid removal, we can adjust the diuretics as described in 1-3 above. With changes in diuretics, it would be ideal to assess a basic metabolic panel in 3-5 days afterwards to assure stability and electrolytes as well as kidney function. Will tentatively plan to see the patient again in 3 months. I encouraged her to call with any questions or concerns in the interim. Tobacco use 08/14/2023 Overview (12/17/2023): Several decades of tobacco use. Assessment & Plan (08/14/2023 4:56 PM CDT): Stable. Ongoing. As part of overall cardiovascular and kidney health, ideal to discontinue tobacco use on a permanent basis. This is obviously a work in progress. Morbid obesity 08/13/2023 Overview (12/17/2023): [place] goal weight approximately 380-385 pounds Assessment & Plan (12/18/2023 4:08 PM CDT): Improved. Patient has chosen to proceed with there is appetite weight management and is awaiting authorization. I agree with the nonsurgical path as a preliminary strategy for weight loss. Assessment & Plan (08/14/2023 4:45 PM CDT): Stable. Baseline weight is roughly around 380-385 pounds per patient. I feel this is accurate. We had an extensive conversation regarding targeting weight loss once the fluid weight is managed effectively. I feel that patient would be an excellent candidate to consider semaglutide for management of weight loss. Patient is beginning to express physiologic derangement as result of (possibly) untreated sleep apnea as discussed in the edema section. Although she appears to have excellent organ function in terms of kidneys, she is certainly at higher than average risk for progressive right-sided heart failure which can ultimately lead to progressive diuretic resistance and kidney failure. That said, I feel strongly that her best chance of extending her life expectancy would be to manage weight. Therefore, significant weight loss through the use of semaglutide would be incredibly appropriate and medically indicated. If this medication is able to be secured and is not tolerated by the patient and/or not successful, another option would be to consider bariatric path. Resolved Problems Problem Noted Date Diagnosed Date Resolved Date Vitamin D deficiency 11/11/2009 024 Immunizations Name Administration Dates Next Due Influenza, Quadrivalent, Preservative Free 01/18,12/28/2016,12/22/2015 Pfizer SARS-COV-2 03/30/2020,03/09/2020 Shingrix 07/22/2021 Family History Medical History Relation Comments Heart disease Father Coronary Artery Disease, Heart Attack Hyperlipidemia Father Cancer Father's Sister Lung Cancer Heart disease Maternal Grandmother congestive heart failure Heart disease Paternal Grandfather Coronary Ar ling Disease, Heart Attack Relation Status Comments Father Alive Father's Sister Maternal Grandfather Maternal Grandmother Mother Alive Paternal Grandfather Paternal Grandmother Sister Alive Social History Tobacco Use Types Packs/Day Years Used Date Smoking Tobacco: Every Day Cigarettes 0.5 42 Started: 03/20/1982 Smokeless Tobacco: Never Alcohol Use Standard Drinks/Week Comments Not Currently 0 (1 standard drink = 0.6 oz pur e alcohol) 1-2 drinks per year Comments Unknown Sex and Gender Information Value Date Recorded Sex Assigned at Not on file Legal Sex Female 1:51 PM EDT Gender Identity Not on file Sexual Orientation Not on file Last Filed Vital Signs Vital Sign Reading Time Taken Comments Blood Pressure 112/68 12/18/2023 3:50 PM CDT Pulse 92 12/18/2023 3:50 PM CDT Temperature - - Respiratory Rate - - Oxygen Saturation 95% 12/18/2023 3:50 PM CDT Inhaled Oxygen Concentration - - Weight 183 kg (404 lb) 12/18/2023 3:50 PM CDT Height 165.1 cm (5' 5) 12/18/2023 3:50 PM CDT Body Mass Index 67.23 12/18/2023 3:50 PM CDT Plan of Treatment Health Maintenance Due Date Last Done Comments Breast Cancer Screening 1965 Pneumococcal Vaccine: Pediat rics (0 to 5 Years) and At-Risk Patients (6 to 64 Years) (1 of 2 - PCV) 1971 Hepatitis B Vaccine (1 of 3 - 19+ 3-dose series) 01/12/1984 Colorectal Cancer Screening: Annual FOBT 2014 Colorectal Cancer Screening: Colonoscopy 2014 Colorectal Cancer Screening: Sigmoidoscopy 2014 Influenza Vaccine (#1) 2023 2, 12/28/2016, 12/22/2015 Insurance [facility] ([id number]) Care Teams Cafeteria Food Server Relationship Specialty Start Date End Date Concetta Valencia PA-C [address] [place] [id number] PCP - General Physician Americanization Teacher 08/03/23
[2024-04-02 17:27] VITALS: BP 112/77; PULSE 92; RESP 20; TEMP 36.4; O2SAT 97; BMI 65.7
--- NOTE | 2024-04-02 17:52 | ED.GENADULT ---
HPI - General Adult General Date Seen: 04/02/24 Chief complaint: Abdominal Pain Stated complaint: L abdomen pain Time Seen by Provider: 04/02/24 17:28 Source: patient History of Present Illness HPI narrative: Patient is a 59-year-old woman here for evaluation of left lower abdominal pain, really more lateral abdominal pain which she says started a couple of days ago. It was worse today. It is worse with movement. She denies any nausea, vomiting, black or bloody stools, diarrhea, fevers, urinary symptoms. She is status post cholecystectomy and appendectomy, denies other abdominal surgeries. She has not taken anything for pain at home and says as long she does not move she does not need anything. She came in because pain was sharper today and more severe. No history of kidney stones or diverticulitis. She does smoke, denies COPD or asthma. Other medical history reviewed. Related Data Home Medications ?Medication ?Instructions ?Recorded ?Confirmed bupropion HCl 150 mg tablet,12 hr mg PO 02/28/22 12/05/23 sustained-release cyclobenzaprine 10 mg tablet mg 02/28/22 12/05/23 dextroamphetamine-amphetamine ER PO 02/28/22 12/05/23 30 mg 24hr capsule,extend release furosemide 40 mg tablet mg 02/28/22 12/05/23 levothyroxine 200 mcg tablet mcg 02/28/22 12/05/23 oxycodone-acetaminophen 5 mg-325 tab 02/28/22 12/05/23 mg tablet pantoprazole 40 mg tablet,delayed mg PO 02/28/22 12/05/23 release pramipexole 1 mg tablet mg 02/28/22 12/05/23 levothyroxine 50 mcg capsule 50 mcg PO QDAY 11/30/23 04/02/24 spironolactone 50 mg tablet 50 mg PO DAILY 11/30/23 12/05/23 alprazolam 0.25 mg tablet 0.25 mg PO BID PRN anxiety 04/02/24 04/02/24 celecoxib 200 mg capsule 200 mg PO BID PRN pain 04/02/24 04/02/24 dextroamphetamine-amphetamine 20 04/02/24 mg tablet dextroamphetamine-amphetamine ER PO QAM 04/02/24 25 mg 24hr capsule,extend release gabapentin 300 mg capsule 300 mg PO BID 04/02/24 04/02/24 metolazone 5 mg tablet 5 mg PO 2XW 04/02/24 04/02/24 potassium chloride 20 mEq meq PO 04/02/24 tablet,extended release(part/cryst) spironolactone 25 mg tablet mg DAILY 04/02/24 Previous Rx's ?Medication ?Instructions ?Recorded ketoconazole 2 % topical cream 1 applic topical DAILY 7 days #15 07/10/23 grams amoxicillin 875 mg-potassium 1 tab PO BID #20 tabs 04/02/24 clavulanate 125 mg tablet Allergies Allergy/AdvReac Type Severity Reaction Status Date / Time Cephalosporins Allergy Mild Unknown Verified 12/05/23 08:16 gabapentin Allergy Mild Unknown Verified 12/05/23 08:16 Sulfa (Sulfonamide Allergy Mild Unknown Verified 12/05/23 08:16 Antibiotics) sulfamethoxazole Allergy Mild Unknown Verified 12/05/23 08:16 trimethoprim Allergy Mild Unknown Verified 12/05/23 08:16 cefadroxil (From Duricef) Allergy Unverified 12/05/23 08:16 adhesive tape AdvReac Mild Unknown Verified 12/05/23 08:16 Review of Systems Status of ROS: Reports: 10 or more systems reviewed and unremarkable except as noted in History and below [facility] Medical History Irritable bowel syndrome (IBS) ?K58.9 - Irritable bowel syndrome without diarrhea (ICD-10) Insomnia ?G47.00 - Insomnia, unspecified (ICD-10) Heartburn ?R12 - Heartburn (ICD-10) Fibromyalgia ?M79.7 - Fibromyalgia (ICD-10) Edema ?R60.9 - Edema, unspecified (ICD-10) DJD (degenerative joint disease) ?M19.90 - Unspecified osteoarthritis, unspecified site (ICD-10) Depression ?F32.A - Depression, unspecified (ICD-10) Delayed wound healing ?T14.8XXD - Other injury of unspecified body region, subsequent encounter (ICD-10) Anxiety ?F41.9 - Anxiety disorder, unspecified (ICD-10) Melanoma ?C43.9 - Malignant melanoma of skin, unspecified (ICD-10) Restless leg syndrome ?G25.81 - Restless legs syndrome (ICD-10) GROVER (obstructive sleep apnea) ?G47.33 - Obstructive sleep apnea (adult) (pediatric) (ICD-10) Tobacco use disorder ?F17.200 - Nicotine dependence, unspecified, uncomplicated (ICD-10) Bilateral carpal tunnel syndrome ?G56.03 - Carpal tunnel syndrome, bilateral upper limbs (ICD-10) Primary osteoarthritis of both knees ?M17.0 - Bilateral primary osteoarthritis of knee (ICD-10) Cervical facet joint syndrome ?M47.812 - Spondylosis without myelopathy or radiculopathy, cervical region (ICD-10) Hip arthritis ?M16.10 - Unilateral primary osteoarthritis, unspecified hip (ICD-10) Lumbar facet arthropathy ?M47.816 - Spondylosis without myelopathy or radiculopathy, lumbar region (ICD-10) Bulging lumbar disc ?M51.36 - Other intervertebral disc degeneration, lumbar region (ICD-10) Degeneration of cervical intervertebral disc ?M50.30 - Other cervical disc degeneration, unspecified cervical region (ICD-10) Plantar fascial fibromatosis ?M72.2 - Plantar fascial fibromatosis (ICD-10) Achilles bursitis or tendinitis ?M76.60 - Achilles tendinitis, unspecified leg (ICD-10) Cholecystitis with cholelithiasis ?K80.10 - Calculus of gallbladder with chronic cholecystitis without obstruction (ICD-10) Adenomatous colon polyp ?D12.6 - Benign neoplasm of colon, unspecified (ICD-10) Esophageal reflux ?K21.9 - Gastro-esophageal reflux disease without esophagitis (ICD-10) Allergic rhinitis, cause unspecified ?J30.9 - Allergic rhinitis, unspecified (ICD-10) HPTH (hyperparathyroidism) ?E21.3 - Hyperparathyroidism, unspecified (ICD-10) Morbid obesity ?E66.01 - Morbid (severe) obesity due to excess calories (ICD-10) Vitamin D deficiency ?E55.9 - Vitamin D deficiency, unspecified (ICD-10) Unspecified hypothyroidism ?E03.9 - Hypothyroidism, unspecified (ICD-10) Mobitz type 1 second degree AV block ?I44.1 - Atrioventricular block, second degree (ICD-10) Knee pain ?M25.569 - Pain in unspecified knee (ICD-10) Surgical History History of endometrial ablation ?Z98.890 - Other specified postprocedural states (ICD-10) History of carpal tunnel release ?Z98.890 - Other specified postprocedural states (ICD-10) H/O dilation and curettage ?Z98.890 - Other specified postprocedural states (ICD-10) History of tonsillectomy ?Z90.89 - Acquired absence of other organs (ICD-10) Hx of appendectomy ?Z90.49 - Acquired absence of other specified parts of digestive tract (ICD-10) S/P bilateral breast reduction ?Z98.890 - Other specified postprocedural states (ICD-10) History of arthroscopy of left shoulder (~2009) ?Z98.890 - Other specified postprocedural states (ICD-10) H/O parathyroidectomy (10/24/12) ?Z98.890 - Other specified postprocedural states (ICD-10) ?Z90.89 - Acquired absence of other organs (ICD-10) Hx laparoscopic cholecystectomy (04/11/13) ?Z90.49 - Acquired absence of other specified parts of digestive tract (ICD-10) Social History Smoking Status: Current every day smoker What tobacco products do you use: cigarettes Smoking packs per day: 5 Smoking cigarettes per day: 100.0 Do you use any of these nicotine containing products: None Second hand tobacco smoke exposure: No How often do you have a drink containing alcohol: never AUDIT-C Alcohol total score: 0 Non-prescribed substance use: denies use service: No Exam Narrative: Exam Narrative: Vital signs reviewed In general, alert, nontoxic mid age woman. She looks comfortable. She is significantly overweight. Head: Normocephalic, atraumatic. Eyes: Sclera clear. Pupils equal and reactive. ENT: Mucous membranes moist. Neck: Supple without adenopathy. Heart: Regular rate and rhythm without murmur. Lungs: Clear. No increased work of breathing, crackles or wheezes. Abdomen: Soft, nontender to palpation. No rebound guarding or rigidity. Body habitus somewhat limits exam. Extremities: Well perfused, pulses intact. No significant edema. Neurologic: Alert, conversant. Speech fluent, face symmetric. Moves all extremities equally. Skin: Warm, dry well perfused. Affect: Normal. Const: Vital Signs, click to edit/add: Vital Signs - 24 hr 04/02/24 17:27 Temperature 97.5 F L Pulse Rate [Pulse Oximeter] 92 Respiratory Rate 20 Blood Pressure [Le ft Upper Arm] 112/77 Pulse Oximetry 97 Oxygen Delivery Me thod Room Air Course Course ED Course: Patient presents with left or abdominal pain of a few days duration. Exam is benign, vital signs are unremarkable. Diagnostic considerations would include diverticulitis, kidney stone, UTI, ovarian pathology, pyelonephritis, abdominal wall muscular injury, lumbar radiculopathy among others. Will obtain a UA, if she does not have significant hematuria, will do CT scan with contrast. Other labs ordered and pending. She denies need for anything for pain right now. Labs are notable for a normal white blood cell count of 9.9, normal diff. Hemoglobin is 14.5. Electrolytes most notable for a potassium of 3, it looks as if she always runs low and she is on spironolactone and potassium replacement. CT scan by my review did not show any significant findings, perhaps little fat stranding by the sigmoid colon, no abscess, obstruction, kidney stone. Final radiology read is reviewed a notable for probable mild acute diverticulitis versus focal colitis. Based on her symptoms I think diverticulitis is more likely. I reviewed all this with her. We discussed risks and benefits of antibiotic treatment for uncomplicated mild diverticulitis. At this time, she would like to defer antibiotics, but she would like me to send a prescription because she thinks she might change her mind in the next day or 2. She would like something for pain here as well and perhaps a prescription to last her day or 2. We discussed keeping her diet bland, low fiber. Discussed reasons to return such as severe or worsening abdominal pain, fever, significantly bloody stools, vomiting etcetera. I prescribed Augmentin for her to her pharmacy. I gave her Toradol 15 mg IV as well as morphine 4 mg IV here. I gave her oxycodone, 4 tablets for home use along with ibuprofen and Tylenol. Vital Signs Vital signs: Initial Vital Signs Temperature 97.5 F L 04/02/24 17:27 Temperature Source Temporal Artery Scan 04/02/24 17:27 Pulse Rate 92 04/02/24 17:27 Respiratory Rate 20 04/02/24 17:27 Blood Pressure 112/77 04/02/24 17:27 Blood Pressure Mean 88 04/02/24 17:27 Pulse Oximetry 97 04/02/24 17:27 Oxygen Delivery Method Room Air 04/02/24 17:27 Vital Signs Temperature 97.5 F L 04/02/24 17:27 Pulse Rate 92 04/02/24 17:27 Respiratory Rate 20 04/02/24 17:27 Blood Pressure 112/77 04/02/24 17:27 Pulse Oximetry 97 04/02/24 17:27 Oxygen Delivery Method Room Air 04/02/24 17:27 Temperature 97.5 F L 04/02/24 17:27 Pulse Rate 92 04/02/24 17:27 Respiratory Rate 20 04/02/24 17:27 Blood Pressure 112/77 04/02/24 17:27 Pulse Oximetry 97 04/02/24 17:27 Oxygen Delivery Method Room Air 04/02/24 17:27 Medications Administered Medications: Generic Name Dose Route Start Last Admin Trade Name Maryjane PRN Reason Stop Dose Admin Ketorolac Tromethamine 15 mg 04/02/24 19:56 04/02/24 20:05 Ketorolac 15 Mg/Ml Inj IVP 04/02/24 19:57 15 mg ONCE ONE Administration Morphine Sulfate 4 mg 04/02/24 19:56 04/02/24 20:06 Morphine 4 Mg/Ml Inj IVP 04/02/24 19:57 4 mg ONCE ONE Administration Medical Decision Making Lab Data Labs: Lab Results 04/02/24 Range/Units 18:05 WBC 9.93 (4.50-11.00) K/uL RBC 5.22 H (4.00-5.20) m/uL Hgb 14.5 (12.0-16.0) gm/dL Hct 44.5 (33.0-51.0) % MCV 85 (80-100) fL MCH 28 (26-34) pg MCHC 33 (32-36) gm/dL RDW Coeff of [place]ito 13.8 (11.5-15.5) % Plt Count 276 (140-440) K/uL Neut % (Auto) 66.3 (42.0-72.0) % Lymph % (Auto) 26.2 (20-44) % Wells % (Auto) 6.5 (0.0-11.0) % Eos % (Auto) 0.1 (0.0-7.0) % Baso % (Auto) 0.3 (0.0-3.0) % Neut # (Auto) 6.58 (1.7-7.0) K/uL Lymph # (Auto) 2.60 (0.90-2.90) K/uL Wells # (Auto) 0.60 (0.00-0.90) K/UL Eos # (Auto) 0.01 (0.00-0.50) K/uL Baso # (Auto) 0.03 (0.00-0.30) K/uL Abs Immat Gran (auto) 0.06 (0.00-0.30) K/uL Imm/Tot Granulo (auto) 0.6 % Sodium 133 L (135-149) mmol/L Potassium 3.0 L (3.6-5.1) mmol/L Chloride 87 L (96-114) mmol/L Carbon Dioxide 39 H (20-32) mmol/L Anion Gap 7 (7-15) mEq/L BUN 26 (7-30) mg/dL Creatinine 1.3 (0.5-1.5) mg/dL Estimated Creat Clear 41.93 Estimated GFR 47 ml/min Glucose 108 (60-115) mg/dL Calcium 9.6 (8.4-10.6) mg/dL Total Bilirubin 0.8 (0.1-1.5) mg/dL Direct Bilirubin 0.4 (0.0-0.5) mg/dL AST 41 H (12-35) U/L ALT 43 H (4-35) U/L Alkaline Phosphatase 119 (40-150) U/L C-Reactive Protein 4.3 H (0.5-1.0) mg/dL Total Protein 8.3 (6.0-8.3) g/dL Albumin 4.5 (3.3-5.0) g/dL Lipase 48 (23-300) U/L Urine Color Yellow (Yellow) Urine Appearance Clear (Clear) Urine pH 7.0 (5.0-8.5) Ur Specific [place] 1.015 (1.000-1.030) Urine Protein Negative (Negative) Urine Glucose (UA) Negative (Negative) Urine Ketones Negative (Negative) Urine Blood Trace-intact A (Negative) Urine Nitrite Negative (Negative) Urine Bilirubin Negative (Negative) Urine Urobilinogen 0.2 (0.2-1.0) Ur Leukocyte Esterase Negative (Negative) Urine RBC 0-2 (0-2) Urine WBC 0-2 (0-5) Ur Squamous Epith Cells Few (None-Few) Urine Bacteria None (None) Imaging Data CT scan - abdomen: Attestation: I have reviewed the pertinent imaging results. Radiologist's impression: [address] [address] Diagnostic Imaging Report Patient: Tejal Woodward MR#: [id number] : 1965 Acct:[id number] Loc: ED Service Date: 04/02/[address]: Ordering Physician: Rosa M Forbes M.D. Date of Service: 04/02/24 Procedure(s): CT abdomen pelvis w con Accession Number(s): [id number] cc: Rosa M Forbes M.D.; Concetta Valencia PA-C~ For Patients: As a result of the Cures Act, medical imaging exams and procedure reports are released immediately into your electronic medical record. You may view this report before your referring provider. If you have questions, please contact your health care provider. INDICATION: Left lower quadrant pain. TECHNIQUE: CT abdomen and pelvis acquired with 150 cc Isovue 370 IV contrast. COMPARISON: 04/23/2011. FINDINGS: Lower chest: Unremarkable. Liver: Cysts and subcentimeter hypodense lesions that are too small to characterize, possibly cysts. Normal in size and attenuation. No suspicious masses. Gallbladder and bile ducts: Cholecystectomy. No biliary dilatation. Pancreas: Unremarkable. No mass or inflammation. Spleen: Subcentimeter hypodense lesion that is nonspecific but statistically favored benign (3/34). Adrenal glands: Unremarkable. No nodules. Kidneys: Cysts. No suspicious masses, stones, or hydronephrosis. GI tract: Small hiatal hernia. Scattered colonic diverticuli with a focus of pericolonic fat stranding near the juncture of the descending and sigmoid colon (3/114). Normal in caliber. No sign of mass or inflammation. No secondary signs of appendicitis. Vasculature: Scattered vascular calcifications. Abdominal aorta is normal in caliber. Mesenteric arteries are patent. Lymph nodes: No lymphadenopathy. Peritoneum/Abdominal Wall: No pneumoperitoneum. No focal fluid collection. Pelvis: Bladder is partially decompressed. Unremarkable reproductive organs. Bones: No acute or suspicious lesions. Multilevel degenerative changes including grade 1 anterolisthesis of L4 on L5. IMPRESSION: Focal pericolonic inflammatory changes in the left lower quadrant favored to represent acute diverticulitis versus focal colitis. No associated focal fluid collection to suggest abscess. Please note that all CT scans at this facility use dose modulation, iterative reconstruction, and/or weight-based dosing when appropriate to reduce radiation dose to as low as reasonably achievable. Dictated by Rodrigo Stern MD @ 04/02/2024 7:44:39 PM Discharge Plan Discharge Clinical Impression: Diverticulitis Patient Disposition: Home, Self-Care Condition: Improved Instructions: Diverticulitis (DC) Additional Instructions: You can use ibuprofen or Tylenol as needed for pain. For more severe uncontrolled pain I have prescribed a small number of oxycodone. Keep your diet bland, low fiber. Your symptoms should gradually improve over the next few days to week. If you worsen, have new symptoms such as fever, bloody stools, vomiting, or severe uncontrolled pain, return to the ER at any time. I have sent a prescription for Augmentin to your pharmacy. This is an antibiotic. As discussed, antibiotics have not been shown to alter the course of uncomplicated diverticulitis, but if you decide you would like to start them they will be available. Prescriptions: New amoxicillin-pot clavulanate 875-125 mg tablet 1 tab PO BID Qty: 20 0RF No Action levothyroxine 50 mcg capsule 50 mcg PO QDAY spironolactone 50 mg tablet 50 mg PO DAILY cyclobenzaprine 10 mg tablet pramipexole 1 mg tablet Patient Comments: TAKE 1 AND 1/2 TABLETS BY MOUTH AT BEDTIME NEEDED furosemide 40 mg tablet Patient Comments: TAKE 1-2 TABLETS (40-80 MG) BY MOUTH EVERY MORNING. bupropion HCl 150 mg tablet sustained-release 12 hr PO Patient Comments: TAKE TWO TABLETS BY MOUTH DAILY EVERY MORNING oxycodone-acetaminophen 5-325 mg tablet pantoprazole 40 mg tablet,delayed release (DR/EC) PO Patient Comments: TAKE 1 TABLET (40 MG) BY MOUTH ONCE DAILY. levothyroxine 200 mcg tablet Patient Comments: TAKE 1 TABLET (200 MCG) BY MOUTH BEFORE BREAKFAST. TAKE IN ADDITION TO 25 MCG TO TOTAL OF 225 MCG. dextroamphetamine-amphetamine 30 mg capsule,extended release 24hr PO Patient Comments: TAKE 1 CAPSULE (30 MG) BY MOUTH ONCE DAILY. ketoconazole 2 % cream 1 applic topical DAILY 7 Days Qty: 15 0RF metolazone 5 mg tablet 5 mg PO 2XW alprazolam 0.25 mg tablet 0.25 mg PO BID PRN (Reason: anxiety) gabapentin 300 mg capsule 300 mg PO BID spironolactone 25 mg tablet DAILY potassium chloride 20 mEq tablet,ER particles/crystals PO dextroamphetamine-amphetamine 20 mg tablet dextroamphetamine-amphetamine 25 mg capsule,extended release 24hr PO QAM celecoxib 200 mg capsule 200 mg PO BID PRN (Reason: pain) Follow Up/Referrals: Concetta Valencia PAVeronika [Primary Care Provider] - Stand Alone Forms: [facility] Info Instructions
[2024-04-02 18:17] LABS: Basophils Absolute Auto 0.03 K/uL (0.00-0.30); Basophils Percent Auto 0.3 % (0.0-3.0); Eosinophils Absolute Auto 0.01 K/uL (0.00-0.50); Eosinophils Percent Auto 0.1 % (0.0-7.0); Hematocrit 44.5 % (33.0-51.0); Hemoglobin* 14.5 gm/dL (12.0-16.0); Immature Granulocytes Abs Auto 0.06 K/uL (0.00-0.30); Immature Granulocytes Pct Auto 0.6 %; Lymphocytes Percent Auto 26.2 % (20-44); Mean Corpuscular HGB Conc 33 gm/dL (32-36); Mean Corpuscular Hemoglobin 28 pg (26-34); Mean Corpuscular Volume 85 fL (80-100); Monocytes Percent Auto 6.5 % (0.0-11.0); Neutrophils Absolute Auto 6.58 K/uL (1.7-7.0); Neutrophils Percent Auto 66.3 % (42.0-72.0); Platelet Count* 276 K/uL (140-440); RDW Coefficient of Variation % 13.8 % (11.5-15.5); Red Blood Count 5.22 m/uL (4.00-5.20); White Blood Count* 9.93 K/uL (4.50-11.00)
[2024-04-02 18:20] LABS: Appearance Urine Clear (Clear); Bilirubin Urine Negative (Negative); Blood Urine Trace-intact (Negative); Color Urine Yellow (Yellow); Glucose Urine Negative (Negative); Ketones Urine Negative (Negative); Leukocyte Esterase Urine Negative (Negative); Nitrite Urine Negative (Negative); Protein Urine Negative (Negative); Specific Gravity Urine 1.015 (1.000-1.030); Urobilinogen Urine 0.2 (0.2-1.0)
--- OUTSIDE RECORDS SUMMARY | 2024-04-02 18:21 | XMS_ITS | Clinical Summary ---
Author Organization [facility] Address [address] [place], [place] [address] Phone Care Team Providers Care Senior Ssis Developer Name Role Phone Concetta ValenciaC Primary Care [...] in progress. Morbid obesity 08/13/2023 Overview (12/17/2023): [place] goal weight approximately 380-385 pounds Assessment & [...] Vaccine (#1) 2023 2, 12/28/2016, 12/22/2015 Insurance [facility] ([id number]) Care Teams Senior Ssis Developer Relationship Specialty Start Date End Date Concetta Valencia PA-C [address] [place] [address] PCP - General Physician Chip Tester 08/03/23
--- OUTSIDE RECORDS SUMMARY | 2024-04-02 18:22 | XMS_ITS | Clinical Summary ---
Author Organization [facility] Address [place], [place] [address] Care Team Providers Care Lumber Piler Operator Name Role Phone Concetta Valencia Primary Care Provider Desire Butts NP Unavailable Oc Morocho RN Unavailable Lb Gilliland MD Unavailable Amna Jakcson RN Unavailable [phone] Allergies Active Allergy Reactions Criticality Noted [...] Care 01/05/[address] Lb Jackson RN [facility] Candidate: no Intake: Wt Readings from Last 1 Encounters: 01/05/23 (!) 196.4 kg (433 lb) lbs, Ht Readings from Last 1 Encounters: 01/05/23 1.651 m (5' 5) BMI: 72.05 Planned Operation Sleeve Gastrectomy Payor: PREFERRED ONE / Plan: PREFERRED ONE / Product Type: *No Product type* / Insurance requirements:None Est. Pgm Completion: ~ June, Procedure Location: [facility] Co-morbidities: dyslipidemia, GERD, and GROVER Orders: [...] Center 02/02/2023 8:00 AM Scarlett Joe, PhD, [facility] 02/02/2023 11:00 AM Desire Butts PC ANALYST PRAFUL DAVID Problem Noted Date Diagnosed Date [...] Department Care Team Description 04/02/2024 Nurse Triage [facility] [address] [place] [address] Concetta Valencia PA Abdominal Pain 03/26/2024 1:20 PM [employer] Office Visit [facility] [address] [place] [address] Concetta Valencia PA Ear Problem (Ringing in ears x 1 month) 03/26/2024 Travel 03/04/2024 4:20 PM [employer] Ancillary Procedure [facility] [address] [place] [address] 03/04/2024 Travel 03/04/2024 Refill [facility] [address] [place] [address] Concetta Valencia PA Refill Request (Levothyroxine, Metolazone) 02/15/2024 1:00 PM [employer] Procedure Only [facility] [address] [place] [address] Jayy Fritz MD Procedure (Ultrasound guided injection rig... 02/15/2024 Travel 02/13/2024 Refill [facility] [address] [place] [address] Concetta Valencia PA Refill Request (Furosemide) 02/04/[address] [phone] Alicia Land PA Refill Request (Topiramate) 02/03/[address] [phone] Alicia Land PA Refill Request (Topiramate) 01/23/2024 1:20 PM [employer] Office Visit [facility] [address] [place] [address] Concetta Valencia PA Concerns (Brain fog, body hurts, legs are shaky, weak, getting crabby / jaramillo) 01/23/2024 Travel 01/13/2024 Refill [facility] [address] [place] [address] Concetta Valencia PA Refill Request (Spironolactone) 01/09/2024 Travel 01/04/2024 Telephone [facility] [address] [place] [address] Jayy Fritz MD Questions 01/01/[address] [phone] Alicia Land PA Refill Request (Topiramate) 01/01/2024 Travel 01/01/[address] [phone] Alicia Land PA Prior Authorization (Zepbound 2.5 mg/0.5 mL pen - EXCLUDED) from Last 3 Months Immunizations Name Administration Dates Next Due COVID-19 vaccine ([employer] NTInline.me 30mcg/0.3mL) PF, MDV 03/30/2020,03/09/2020 INFLUENZA, IIV3 PF [...] on file Legal Sex Female 5:24 AM [employer] Gender Identity Not on file Sexual Orientation Not on file Obstetrics History Last Filed Vital Signs Vital Sign Reading Time Taken Comments Blood Pressure 131/72 03/26/2024 1:26 PM [employer] Pulse 97 03/26/2024 1:26 PM [employer] Temperature 36.8 C (98.2 F) 02/15/2024 12:59 PM [employer] Respiratory Rate 12 02/24/2013 9:15 AM [employer] Oxygen Saturation 97% 02/15/2024 12:59 PM [employer] Inhaled Oxygen Concentration - - Weight 179.2 kg (395 lb) 03/26/2024 1:26 PM [employer] Height 165.1 cm (5' 5) 12/27/2023 2:00 PM CDT Body Mass Index 65.73 12/27/2023 2:00 PM CDT Plan of Treatment Upcoming Encounters Date Type Department Care Team (Late st Contact Info) Description 05/01/2024 3:00 PM [employer] Nutrition/Dieticia n [facility] [address] [place] [phone] Alejandrina Leon, RD [address] [facility], [place] [id number] 05/06/2024 1:00 PM [employer] Office Visit [facility] [address] [place] [address] Alicia Land PA [address] [place] [address] Health Maintenance Due Date Last Done [...] SHAUNA BILAT SCREEN Routine 03/04/2024 4:34 PM [employer] Visit for screening mammogram BEDSIDE US STUDY ARCHIVE Routine 02/15/2024 3:51 PM [employer] Primary osteoarthritis of right knee TSH WITH REFLEX Routine 01/23/2024 2:25 PM [employer] Hypothyroidism, unspecified type BASIC METABOLIC PANEL Routine 01/23/2024 2:25 PM [employer] Low blood potassium LIPID PANEL W REFLEX MEASURED LDL Routine 12/13/2022 9:22 AM CDT Morbid obesity with BMI of 60.0-69.9, adult (HC) SCAN-COLONOSCOPY 07/21/2022 12:[address] CHEST WO Routine 06/21/2012 Unspecified pleural effusion from Last 3 Months or Most Recently Relevant to Health Maintenance Results * XR MAMMO SHAUNA BILAT SCREEN (03/04/2024 4:34 PM [employer]) Anatomical Region Laterality Modality BREASTS, Breast Left, Breast Right Bilateral Mammography Impressions 03/04/2024 4:48 PM [employer] There is no radiographic evidence for malignancy. Recommend annual mammograms. MAMMOGRAM ASSESSMENT: ACR 1 Negative PATIENTS: You will also receive a letter with your examination results in an easy to read format. If you have questions about your results, please contact your referring provider. Narrative 03/04/2024 4:48 PM [employer] For Patients: As a result of the Century Cures Act, medical imaging exams and procedure reports are released immediately into your electronic medical record. You may view this report before your referring provider. If you have questions, please contact your health care provider. XR MAMMO SHAUNA BILAT SCREEN [[id number]] CLINICAL HISTORY: This is an asymptomatic 59 [...] BEDSIDE US STUDY ARCHIVE (02/15/2024 3:51 PM [employer]) Narrative Herrera Meeta Melani - 02/15/2024 3:51 PM [employer] The patient was seen for ultrasound guided injection by Dr. Jayy Fritz. Ultrasound was not used for diagnostic purposes, but to guide the needle placement and document the position of the injection. See patient's EPIC encounter for the detail of the procedure; see JUMA for saved images of the injection. Result [facility] Jayy Fritz MD PROCEDURE ORD Final Resu lt * TSH WITH REFLEX (01/23/2024 2:25 PM [employer]) TSH W/REFLEX TO FT4 3.84 0.40 - 4.50 mIU/L [facility] Blood BLOOD SPECIMEN / Unknown 01/23/2024 2:25 PM [employer] 01/23/2024 2:25 PM [employer] Concetta PECK CHEMISTRY Final R esult [facility] [employer] [facility] [address] [place] [address], [place] [phone] [facility] [address] [place] [address] * (ABNORMAL) BASIC METABOLIC PANEL (01/23/2024 2:25 PM [employer]) Pathologist [facility] GLUCOSE 94 65 - 99 mg/dL [facility] [...] BLOOD SPECIMEN / Unknown 01/23/2024 2:25 PM [employer] 01/23/2024 2:25 PM [employer] Concetta PECK CHEMISTRY Final R esult [employer] [facility] [address] [place] [address], [facility] [address] [place] [address] * (ABNORMAL) LIPID PANEL W REFLEX MEASURED LDL (12/13/2022 9:22 AM CDT) Pathologist [facility] CHOLESTEROL,TOTAL 203(H) 100 - 199 mg/dL 12/13/2022 4:43 PM CDT [facility] [employer] Comment: Cholesterol, Total Reference Ranges Desirable <200 mg/dL Borderline 200-239 mg/dL High >=240 mg/dL TRIGLYCERIDES 88 <150 mg/dL 12/13/2022 4:43 PM CDT [facility] HDL CHOLESTEROL 55 >40 mg/dL 4:43 PM CDT [facility] NON-HDL CHOLESTEROL 148(H) <145 mg/dl 12/13/2022 4:43 PM CDT [facility] CHOL/HDL RATIO 3.69 <4.50 12/13/2022 4:43 PM CDT [facility] LDL CHOLESTEROL 130 <=130 mg/dL 12/13/2022 4:43 PM CDT [facility] VLDL CHOLESTEROL 18 <=30 mg/dL 12/13/2022 4:43 PM CDT [facility] PROVIDER ORDERED STATUS RANDOM 12/13/2022 4:43 PM CDT [facility] Blood BLOOD SPECIMEN / Unknown Venipuncture / Unknown 12/13/2022 9:22 AM CDT 12/13/2022 9:26 AM CDT us Desire Butts NP CHEMISTRY Final Res [facility] [address] [place] [address], * SCAN-COLONOSCOPY (07/21/2022 12:00 AM CDT) us Scanner OTHER Final Result * CT CHEST WO (06/21/2012) Anatomical Region Laterality Modality CHEST, THORAX, HEART Other us Emmy Bauer MD CT Final Result from Last 3 Months or Most Recently Relevant to Health Maintenance Insurance [facility] SHARED SERVICES [facility] Advance Directives * Full Code (Latest Code Status on File) Date Activated Date Inactivated Comments 10/24/2012 1:36 PM 10/25/2012 4:16 PM * Full Code Date Activated Date Inactivated Comments 10/24/2012 10:54 AM 10/24/2012 1:36 PM Care Teams Lumber Piler Operator Relationship Specialty Start Date End Date Concetta Valencia PA [address] [place] [address] PCP - General Family Practice 07/04/13 Desire Butts NP [address] [place] [address] [place] [address] Nurse Practitioner - Family 11/21/22 Oc Morocho, ARMANDO [address] [place] [address] Registered Nurse 11/21/22 bL Gilliland MD [address] [address] Consulting Physician Surgery - General 01/05/23 Amna Jackson RN [address] [address] Professor Of Forest Planning Registered Nurse 01/05/23
[2024-04-02 18:30] LABS: Slide Review Reflex No
[2024-04-02 18:31] LABS: RBC Urine 0-2 (0-2); Squamous Epithelial Cell Urine Few (None-Few); WBC Urine 0-2 (0-5)
[2024-04-02 18:32] LABS: Albumin* 4.5 g/dL (3.3-5.0)
[2024-04-02 18:33] LABS: Chloride* 87 mmol/L (96-114); Sodium* 133 mmol/L (135-149)
[2024-04-02 18:35] LABS: Creatinine* 1.3 mg/dL (0.5-1.5); Est. Creatinine Clearance* 41.93; Estimated Glomerular Filt Rate 47 ml/min
[2024-04-02 18:36] LABS: Alanine Aminotransferase* 43 U/L (4-35); Alkaline Phosphatase* 119 U/L (40-150); Anion Gap 7 mEq/L (7-15); Aspartate Amino Transferase* 41 U/L (12-35); Bilirubin Direct* 0.4 mg/dL (0.0-0.5); Bilirubin Total* 0.8 mg/dL (0.1-1.5); Blood Urea Nitrogen* 26 mg/dL (7-30); Carbon Dioxide* 39 mmol/L (20-32); Glucose* 108 mg/dL (60-115); Lipase* 48 U/L (23-300); Total Protein* 8.3 g/dL (6.0-8.3)
[2024-04-02 18:37] LABS: Calcium* 9.6 mg/dL (8.4-10.6)
[2024-04-02 18:39] LABS: C Reactive Protein* 4.3 mg/dL (0.5-1.0)
[2024-04-02] MEDS: KETOROLAC 15 MG/ML inj IVP (20:05)
[2024-04-02] MEDS: MORPHINE 4 MG/ML INJ IVP (20:06)
== END 2024-04-02 20:24 | disposition home or self-care (01) ==
PROVIDERS: Emergency Provider Emergency Medicine; PCP Physician Assistant Medical
DX: K57.32 Diverticulitis of large intestine without perforation or abscess without bleeding (principal)
CPT/HCPCS: 36415; 74177; 80048; 80076; 81001; 83690; 85025; 86140; 94761; 96374; 96375; 99284; J1885; J2270; Q9967

== ENCOUNTER 2024-05-20 17:56 | Emergency (ER) | payer OTHER, SELFPAY ==
--- OUTSIDE RECORDS SUMMARY | 2024-05-20 17:58 | XMS_ITS | Clinical Summary ---
Author Organization [employer] [facility] [employer] [facility] Address [address] [place] [address] Care Team Providers Care Stock Sheets Cleaner Inspector Name Role Phone Concetta Valencia Primary Care Provider Desire Butts NP Unavailable Oc Morocho RN Unavailable Lb Gilliland MD Unavailable Amna Jackson RN Unavailable [phone] Allergies Active Allergy Reactions Criticality Noted Date Comments Adhesive Erythema 10/24/2012 Sulfamethoxazole-Trimethop rim *Unknown - Pt Doesn't Remember 09/17/2006 Cefadroxil Respiratory Distress 03/22/2007 Gabapentin Insomnia 11/15/2007 Medications multivitamin capsule Take 1 capsule by mouth once daily. 0 08/08/19 12 Active calcium carbonate-vitamin D3, 600 mg-125 unit, (CALCIUM 600 + D) tablet Take 1 tablet by mouth 2 times daily with meals. 0 05/05/19 16 Active Cholecalciferol, Vitamin D3, (VITAMIN D-3) 5,000 unit tab Take by mouth once daily. 0 07/14/19 16 Active Walker - 4 wheelsIndications: Injury of left knee, initial encounter,Primary osteoarthritis of both knees With seat. Bariatric weight. For home use. Length of need: 99 1 Device 06/08/19 21 Active Walker - 4 wheelsIndications: Bilateral primary osteoarthritis of knee With upright forearm attachments for more upright posture. For home use. Length of need: 99 1 Each 05/16/19 Active durable medical equipment (DME)Indications:O steoarthritis of carpometacarpal (CMC) joint of left thumb, unspecified osteoarthritis type Thumb brace for cmc osteoarthritis. 1 Each 05/16/19 23 Active Graduated Compression StockingsIndicatio ns:Bilateral leg edema For personal use. Length: Knee Strength: 20-30 mmHg Circumference in cm: 1 Packet 3 06/16/19 23 Active celecoxib (CELEBREX) 200 mg capsuleIndications :Lumbar facet arthropathy TAKE 1 CAPSULE BY MOUTH 2 TIMES DAILY IF NEEDED FOR PAIN. 180 Capsule 3 01/20/20 23 Active buPROPion (WELLBUTRIN SR) 150 mg Sustained-Release tabletIndications: Mild episode of recurrent major depressive disorder Take 2 Tablets (300 mg) by mouth once daily in the morning. 180 Tablet 3 07/20/19 24 Active pantoprazole (PROTONIX) 40 mg delayed-release tabletIndications: Gastroesophageal reflux disease, unspecified whether esophagitis present Take 1 Tablet (40 mg) by mouth once daily. 90 Tablet 3 07/20/19 24 Active pramipexole (MIRAPEX) 1 mg tabletIndications: Restless legs syndrome (RLS) TAKE 1 AND 1/2 TABLETS BY MOUTH AT BEDTIME NEEDED 135 Tablet 2 10/15/19 24 Active cyclobenzaprine (FLEXERIL) 10 mg tabletIndications: Primary osteoarthritis of both knees TAKE 1 TABLET(10 MG) BY MOUTH THREE TIMES DAILY NEEDED FOR PAIN 60 Tablet 2 10/30/19 24 Active potassium chloride (KLOR-CON M20) 20 mEq extended-release tablet (part/cryst)Indica tions:Bilateral leg edema Take 3 Tablets (60 mEq) by mouth once daily. Take extra tab if taking metolazone once or twice weekly 90 Tablet 3 11/19/19 24 Active dextroamphetamine- amphetamine (AdderalL) 20 mg tabletIndications: Attention deficit disorder, unspecified hyperactivity presence Take 1 Tablet (20 mg) by mouth once daily. 30 Tablet 11/19/19 24 Active spironolactone (ALDACTONE) 50 mg tabletIndications: Hypokalemia,Bilate ral lower extremity edema TAKE 1 TABLET(50 MG) BY MOUTH DAILY 90 Tablet 1 01/16/20 24 Active dextroamphetamine- amphetamine (Adderall XR) 25 mg Extended-Release capsuleIndications :Attention deficit disorder, unspecified type Take 1 Capsule (25 mg) by mouth once daily. 30 Capsule 03/23/19 25 Active ALPRAZolam (XANAX) 0.25 mg tabletIndications: Anxiety Take 1 tab twice daily as needed for anxiety. 20 Tablet 01/28/20 24 Active furosemide (LASIX) 40 mg tabletIndications: taking 2 tabs 5 days a week, and 1 tab 2 days a week Take 1-2 Tablets (40-80 mg) by mouth once daily in the morning. 180 Tablet 1 02/17/20 24 Active metOLazone (ZAROXOLYN) 5 mg tabletIndications: taking twice weekly Take 1 tab twice weekly. 20 Tablet 03/09/19 25 Active gabapentin (NEURONTIN) 300 mg capsuleIndications :Chronic bilateral low back pain with bilateral sciatica Take 1 Capsule (300 mg) by mouth two times daily. 180 Capsule 1 03/26/19 25 Active levothyroxine (SYNTHROID) 200 mcg tabletIndications: Hypothyroidism, acquired Take 1 Tablet (200 mcg) by mouth once daily. 90 Tablet 3 04/14/19 25 Active levothyroxine (SYNTHROID) 50 mcg tabletIndications: Hypothyroidism, acquired Take 1 Tablet (50 mcg) by mouth before breakfast. Take in addition to 200 mcg for total of 250 mcg daily. 90 Tablet 3 04/14/19 25 Active oxyCODONE-acetamin ophen (Percocet) 5-325 mg per tabletIndications: Primary osteoarthritis of both knees Take 1 Tablet by mouth 3 times daily if needed for Pain. Take for chronic knee pain. Max acetaminophen dose: 4000mg in 24 hrs. 60 Tablet 05/02/19 25 Active topiramate (TOPAMAX) 25 mg tabletIndications: Morbid obesity with BMI of 60.0-69.9, adult (HC) Take 2 Tablets (50 mg) by mouth at bedtime. 60 Tablet 2 05/07/19 25 Active topiramate (TOPAMAX) 25 mg tabletIndications: Morbid obesity with BMI of 60.0-69.9, adult (HC) Take 2 Tablets (50 mg) by mouth at bedtime. 60 Tablet 02/04/20 24 025 Disconti nued(Reo rder (E-cance l not sent)) oxyCODONE-acetamin ophen (Percocet) 5-325 mg per tabletIndications: Primary osteoarthritis of both knees Take 1 Tablet by mouth 3 times daily if needed for Pain. Take for chronic knee pain. Max acetaminophen dose: 4000mg in 24 hrs. 60 Tablet 03/26/19 25 025 Disconti nued(Reo rder (E-cance l not sent)) Active Problems Patient Care Coordination No te Formatting of this note is d ifferent from the original. Weight Management - Adult Surgical Program Patient Received Binder: Yes Part of KTY[facility] Program: no RDC or GS Patient: No Initial Consult / Established Care 01/05/[address] Lb Jackson RN [facility] Candidate: no Intake: Wt Readings from Last 1 Encounters: 01/05/23 (!) 196.4 kg (433 lb) lbs, Ht Readings from Last 1 Encounters: 01/05/23 1.651 m (5' 5) BMI: 72.05 Planned Operation Sleeve Gastrectomy Payor: PREFERRED ONE / Plan: PREFERRED ONE / Product Type: *No Product type* / Insurance requirements:None Est. Pgm Completion: ~ June, Procedure Location: [facility] Co-morbidities: dyslipidemia, GERD, and GROVER Orders: [...] Center 02/02/2023 8:00 AM Scarlett Joe, PhD, LP [facility] 02/02/2023 11:00 AM Desire Butts, SURFACER OPERATOR PRAFUL HERNANDEZ Problem Noted Date Diagnosed Date Primary osteoarthritis of both knees 03/11/2021 Hypothyroidism, acquired 12/07/2014 Bilateral carpal tunnel syndrome 06/29/2014 Cholecystitis with cholelithiasis 04/12/2013 Morbid obesity with BMI of 60.0-69.9, adult 10/2013 HPTH (hyperparathyroidism) 01/21/2013 Degeneration of cervical [...] Encounters Date Type Department Care Team Description 05/20/2024 Nurse Triage [facility] [address] [place] [address] Concetta Valencia PA Back Pain 05/20/2024 Telephone [facility] [address] [place] [address] Delfina Wiley PA Appointment Request (Leg Pain - same day at 2:30 on 05/21) 05/06/2024 1:00 PM MID LEVEL JAVA DEVELOPER Telemedicine [address] [phone] Alicia Land PA Telehealth (No vitals taken); Weight (MWL #4) 05/01/2024 3:00 PM MID LEVEL JAVA DEVELOPER Telemedicine [address] [phone] Medical Nutrition Therapy (MWL.2) 05/01/2024 Travel 04/14/2024 2:00 PM MID LEVEL JAVA DEVELOPER Office Visit [facility] [address] [place] [address] Concetta Valencia PA ER Follow up (Diverticulitis - was feeling better but now feeing pain again/) 04/14/2024 Travel 04/02/2024 Orders Only [facility] Scanner 1 scan: (1-Ord) [place], CT ABDOMEN PELVIS W CON, 04/02/2024 04/02/2024 Orders Only [facility] Scanner 1 scan: (1-Ord) [facility], CT ABDOMEN AND PELVIS W CON, 04/02/2024 04/02/2024 Nurse Triage [facility] [address] [place] [address] Concetta Valencia PA Abdominal Pain 03/26/2024 1:20 PM MID LEVEL JAVA DEVELOPER Office Visit [facility] [address] [place] [address] Concetta Valencia PA Ear Problem (Ringing in ears x 1 month) 03/26/2024 Travel 03/04/2024 4:20 PM MID LEVEL JAVA DEVELOPER Ancillary Procedure [facility] [address] [place] [address] 03/04/2024 Travel 03/04/2024 Refill [facility] [address] [place] [address] Concetta Valencia PA Refill Request (Levothyroxine, Metolazone) from Last 3 Months Immunizations Immunization Administration Dates Next Due COVID-19 vaccine ([employer]ormeli [employer] 30mcg/0.3mL) PF, MDV 03/30/2020,03/09/2020 INFLUENZA, IIV3 PF (AGE >= 6 MO) 01/23/2024 Influenza Intradermal PF 18-64 yrs 12/14/2014 Influenza RIV4 (Age 18+ Year s) PRESERV FREE 12/11/2018 Influenza Virus, Unspecified 12/19/2016, 01/17/2010(Deferred: Patient Refused) Influenza, IIV3 (Age 6-35 mos) ,12/12/2017,12/25/2012,2011,12/20/2010 Influenza, IIV3 (Age >=3 years) 02/01/2010 Influenza, [...] Date Smoking Tobacco: Every Day Cigarettes 0.5 42.2 Started: 1982 Smokeless Tobacco: Never Tobacco Cessation:Ready [...] on file Legal Sex Female 5:24 AM MID LEVEL JAVA DEVELOPER Gender Identity Not on file Sexual Orientation Not on file Obstetrics History Last Filed Vital Signs Vital Sign Reading Time Taken Comments Blood Pressure 117/65 04/14/2024 2:03 PM MID LEVEL JAVA DEVELOPER Pulse 94 04/14/2024 2:03 PM MID LEVEL JAVA DEVELOPER Temperature 36.8 C (98.2 F) 02/15/2024 12:59 PM MID LEVEL JAVA DEVELOPER Respiratory Rate 12 02/24/2013 9:15 AM MID LEVEL JAVA DEVELOPER Oxygen Saturation 97% 02/15/2024 12:59 PM MID LEVEL JAVA DEVELOPER Inhaled Oxygen Concentration - - Weight 179.2 kg (395 lb) 05/06/2024 12:00 PM MID LEVEL JAVA DEVELOPER Height 165.1 cm (5' 5) 05/06/2024 12:00 PM MID LEVEL JAVA DEVELOPER Body Mass Index 65.73 05/06/2024 12:00 PM MID LEVEL JAVA DEVELOPER Plan of Treatment Upcoming Encounters Date Type Department Care Team (Late st Contact Info) Description 05/27/2024 11:50 AM CDT Office Visit [facility] [address] [place] [address] Concetta Valencia PA [address] [place] [address] 06/05/2024 1:30 PM CDT Telemedicine [address] [phone] [place] [phone] 07/11/2024 10:00 AM CDT Telemedicine [address] [phone] Alicia Land PA [address] [facility] [place] [address] Health Maintenance Due Date Last Done Comments [...] 07/19/2024 07/20/2023, 05/28/2023, 05/21/2023, Additional history exists Mammogram for age 45-75 03/04/2025 03/04/20, 02/06/2023, 02/21/2021, Additional history exists BMI (ht and wt on same day) for age 18+ 05/06/2025 05/06/2024, 05/01/2024, 12/27/2023, Additional history exists Tetanus booster 03/01/2026 03/01/2016, 06/2011, 12/01/2005 Colonoscopy through age 75 07/22/202707/21, 02/21/2017, 10/26/2011 Lipids for age 45-75 12/14/2027 12/13/2022, 05/15/2022, 07/28/2011, Additional history exists Tdap Completed 03/01/2016, 12/07/2011 Influenza Vaccine Completed 01/23/2024, , 12/15/2019, Additional history exists Zoster (shingles) series for age 50+ Completed 01/23/2024, 07/22/2021 Procedures Procedure Name Priority Date/Time Associated Diagnosis Comments SCAN-CT INTERPRETATION 5 12:00 AM MID LEVEL JAVA DEVELOPER SCAN-CT INTERPRETATION 5 12:00 AM MID LEVEL JAVA DEVELOPER XR MAMMO SHAUNA BILAT SCREEN Routine 03/04/2024 4:34 PM MID LEVEL JAVA DEVELOPER Visit for screening mammogram LIPID PANEL W REFLEX MEASURED LDL Routine 12/13/2022 9:22 AM CDT Morbid obesity with BMI of 60.0-69.9, adult (HC) SCAN-COLONOSCOPY 07/21/2022 12:[address] CHEST WO Routine 06/21/2012 Unspecified pleural effusion from Last 3 Months or Most Recently Relevant to Health Maintenance Results * SCAN-CT INTERPRETATION (04/02/2024 12:00 AM MID LEVEL JAVA DEVELOPER) Only the most recent of2 resultswithin the time period is included. Anatomical Region Laterality Modality Other us Scanner OTHER Final Result * XR MAMMO SHAUNA BILAT SCREEN (03/04/2024 4:34 PM MID LEVEL JAVA DEVELOPER) Anatomical Region Laterality Modality BREASTS, Breast Left, Breast Right Bilateral Mammography Impressions 03/04/2024 4:48 PM MID LEVEL JAVA DEVELOPER There is no radiographic evidence for malignancy. Recommend annual mammograms. MAMMOGRAM ASSESSMENT: ACR 1 Negative PATIENTS: You will also receive a letter with your examination results in an easy to read format. If you have questions about your results, please contact your referring provider. Narrative 03/04/2024 4:48 PM MID LEVEL JAVA DEVELOPER For Patients: As a result of the Century Cures Act, medical imaging exams and procedure reports are released immediately into your electronic medical record. You may view this report before your referring provider. If you have questions, please contact your health care provider. XR MAMMO SHAUNA BILAT SCREEN [[id number]] CLINICAL HISTORY: This is an asymptomatic 59 [...] micro calcifications or areas of architectural distortion. us Concetta Josie McLeran PA MAMMO Final R esult * (ABNORMAL) LIPID PANEL W REFLEX MEASURED LDL (12/13/2022 9:22 AM CDT) CHOLESTEROL,TOTAL 203(H) 100 - 199 mg/dL 12/13/2022 4:43 PM CDT [facility] Comment: Cholesterol, Total Reference Ranges Desirable <200 mg/dL Borderline 200-239 mg/dL High >=240 mg/dL TRIGLYCERIDES 88 <150 mg/dL 12/13/2022 4:43 PM CDT [facility] HDL CHOLESTEROL 55 >40 mg/dL 4:43 PM CDT [facility] NON-HDL CHOLESTEROL 148(H) <145 mg/dl 12/13/2022 4:43 PM CDT [facility] CHOL/HDL RATIO 3.69 <4.50 12/13/2022 4:43 PM CDT [facility] LDL CHOLESTEROL 130 <=130 mg/dL 12/13/2022 4:43 PM CDT [facility] VLDL CHOLESTEROL 18 <=30 mg/dL 12/13/2022 4:43 PM CDT [facility] PROVIDER ORDERED STATUS RANDOM 12/13/2022 4:43 PM CDT [facility] Blood BLOOD SPECIMEN / Unknown Venipuncture / Unknown 12/13/2022 9:22 AM CDT 12/13/2022 9:26 AM CDT us Desire Butts NP CHEMISTRY Final Res ult [facility] [address] [place] [address], * SCAN-COLONOSCOPY (07/21/2022 12:00 AM CDT) us Scanner OTHER Final Result * CT CHEST WO (06/21/2012) Anatomical Region Laterality Modality CHEST, THORAX, HEART Other us Emmy Bauer MD CT Final Result from Last 3 Months or Most Recently Relevant to Health Maintenance Insurance [facility] Advance Directives * Full Code (Latest Code Status on File) Date Activated Date Inactivated Comments 10/24/2012 1:36 PM 10/25/2012 4:16 PM * Full Code Date Activated Date Inactivated Comments 10/24/2012 10:54 AM 10/24/2012 1:36 PM Care Teams Stock Sheets Cleaner Inspector Relationship Specialty Start Date End Date Concetta Valencia PA [address] [facility] [place] [address] PCP - General Family Practice 07/04/13 Desire Butts, SURFACER OPERATOR [address] [place] [address] [place] [address] Nurse Practitioner - Family 11/21/22 Oc Morocho, ARMANDO [address] [place], [place] [address] Registered Nurse 11/21/22 Lb Gilliland MD [address] [place] [address] Consulting Physician Surgery - General 01/05/23 Amna Jackson RN [address] [place] [address] Insurance Processing Clerk Registered Nurse 01/05/23
[2024-05-20 18:18] VITALS: BP 136/90; PULSE 88; RESP 22; TEMP 36.6; O2SAT 97; BMI 69.6
--- NOTE | 2024-05-20 20:01 | ED.BACK ---
HPI - Back Pain/Injury General Time Seen by Provider: 20:01 Date Seen: 05/20/24 Chief Complaint: Back Injury/Pain Stated Complaint: back/leg pain Time Seen by Provider: 05/20/24 17:59 Source: patient, RN notes reviewed and old records reviewed Mode of arrival: ambulatory Limitations: no limitations History of Present Illness HPI Narrative: Tejal is a very pleasant 59-year-old female employee of [employer] with a history of chronic back pain, lower extremity edema and hypothyroidism who comes to the emergency room for evaluation regarding ongoing and increasing back pain. Tejal notes that she has had longstanding low back pain and even received injections from Dr. Fritz in the past. She notes that was a few years ago. She has been on oxycodone and Flexeril from Concetta Leiva a provider at [facility] but she does not feel like it is helping very much. She notes the pain is in her low back and radiates down her left leg all the way to the bottom of her foot. No loss of bowel or bladder control. She has not had any recent falls trauma or fevers. She notes that the right leg also hurts somewhat but not as much as the left leg. She has also noticed that she has had increased lower extremity edema over the past 3 days. Her calves are very tight. She has had again no recent illness. She has no history of DVT and she is not currently on any blood thinners. She has noticed some increased shortness of breath with exertion. She denies any chest pain. Movement increases patient's pain. Related Data Home Medications ?Medication ?Instructions ?Recorded ?Confirmed bupropion HCl 150 mg tablet,12 hr 300 mg PO DAILY 02/28/22 05/20/24 sustained-release cyclobenzaprine 10 mg tablet mg 02/28/22 12/05/23 dextroamphetamine-amphetamine ER PO 02/28/22 12/05/23 30 mg 24hr capsule,extend release furosemide 40 mg tablet 40 mg PO DAILY 02/28/22 05/20/24 levothyroxine 200 mcg tablet 200 mcg PO DAILY 02/28/22 05/20/24 oxycodone-acetaminophen 5 mg-325 tab 02/28/22 12/05/23 mg tablet pantoprazole 40 mg tablet,delayed 40 mg PO DAILY 02/28/22 05/20/24 release pramipexole 1 mg tablet mg 02/28/22 12/05/23 levothyroxine 50 mcg capsule 50 mcg PO QDAY 11/30/23 04/02/24 spironolactone 50 mg tablet 50 mg PO DAILY 11/30/23 12/05/23 celecoxib 200 mg capsule 200 mg PO BID PRN pain 04/02/24 04/02/24 dextroamphetamine-amphetamine 20 04/02/24 mg tablet dextroamphetamine-amphetamine ER 25 mg PO QAM 04/02/24 05/20/24 25 mg 24hr capsule,extend release gabapentin 300 mg capsule 300 mg PO BID 04/02/24 05/20/24 metolazone 5 mg tablet 5 mg PO 2XW 04/02/24 04/02/24 potassium chloride 20 mEq 60 meq PO DAILY 04/02/24 05/20/24 tablet,extended release(part/cryst) spironolactone 25 mg tablet 25 mg PO DAILY 04/02/24 05/20/24 Previous Rx's ?Medication ?Instructions ?Recorded ketoconazole 2 % topical cream 1 applic topical DAILY 7 days #15 07/10/23 grams amoxicillin 875 mg-potassium 1 tab PO BID #20 tabs 04/02/24 clavulanate 125 mg tablet methylprednisolone 4 mg tablets in See Rx Instructions PO .COMPLEX 05/21/24 a dose pack (Medrol (Erwin)) #21 ea Allergies Allergy/AdvReac Type Severity Reaction Status Date / Time Cephalosporins Allergy Mild Unknown Verified 12/05/23 08:16 gabapentin Allergy Mild Unknown Verified 12/05/23 08:16 Sulfa (Sulfonamide Allergy Mild Unknown Verified 12/05/23 08:16 Antibiotics) sulfamethoxazole Allergy Mild Unknown Verified 12/05/23 08:16 trimethoprim Allergy Mild Unknown Verified 12/05/23 08:16 cefadroxil (From Duricef) Allergy Unverified 12/05/23 08:16 adhesive tape AdvReac Mild Unknown Verified 12/05/23 08:16 Review of Systems Status of ROS: Reports: 6 or more systems reviewed and unremarkable except as noted in History and below Const: Denies: fever or chills Cardio: Denies: chest pain or shortness of breath with exertion Resp: Denies: shortness of breath or cough GI: Denies: abdominal pain or vomiting : Denies: painful urination Musculo: Reports: back pain and extremity pain PFSH [facility] Medical History Irritable bowel syndrome (IBS) ?K58.9 - Irritable bowel syndrome without diarrhea (ICD-10) Insomnia ?G47.00 - Insomnia, unspecified (ICD-10) Heartburn ?R12 - Heartburn (ICD-10) Fibromyalgia ?M79.7 - Fibromyalgia (ICD-10) Edema ?R60.9 - Edema, unspecified (ICD-10) DJD (degenerative joint disease) ?M19.90 - Unspecified osteoarthritis, unspecified site (ICD-10) Depression ?F32.A - Depression, unspecified (ICD-10) Delayed wound healing ?T14.8XXD - Other injury of unspecified body region, subsequent encounter (ICD-10) Anxiety ?F41.9 - Anxiety disorder, unspecified (ICD-10) Melanoma ?C43.9 - Malignant melanoma of skin, unspecified (ICD-10) Restless leg syndrome ?G25.81 - Restless legs syndrome (ICD-10) GROVER (obstructive sleep apnea) ?G47.33 - Obstructive sleep apnea (adult) (pediatric) (ICD-10) Tobacco use disorder ?F17.200 - Nicotine dependence, unspecified, uncomplicated (ICD-10) Bilateral carpal tunnel syndrome ?G56.03 - Carpal tunnel syndrome, bilateral upper limbs (ICD-10) Primary osteoarthritis of both knees ?M17.0 - Bilateral primary osteoarthritis of knee (ICD-10) Cervical facet joint syndrome ?M47.812 - Spondylosis without myelopathy or radiculopathy, cervical region (ICD-10) Hip arthritis ?M16.10 - Unilateral primary osteoarthritis, unspecified hip (ICD-10) Lumbar facet arthropathy ?M47.816 - Spondylosis without myelopathy or radiculopathy, lumbar region (ICD-10) Bulging lumbar disc ?M51.36 - Other intervertebral disc degeneration, lumbar region (ICD-10) Degeneration of cervical intervertebral disc ?M50.30 - Other cervical disc degeneration, unspecified cervical region (ICD-10) Plantar fascial fibromatosis ?M72.2 - Plantar fascial fibromatosis (ICD-10) Achilles bursitis or tendinitis ?M76.60 - Achilles tendinitis, unspecified leg (ICD-10) Cholecystitis with cholelithiasis ?K80.10 - Calculus of gallbladder with chronic cholecystitis without obstruction (ICD-10) Adenomatous colon polyp ?D12.6 - Benign neoplasm of colon, unspecified (ICD-10) Esophageal reflux ?K21.9 - Gastro-esophageal reflux disease without esophagitis (ICD-10) Allergic rhinitis, cause unspecified ?J30.9 - Allergic rhinitis, unspecified (ICD-10) HPTH (hyperparathyroidism) ?E21.3 - Hyperparathyroidism, unspecified (ICD-10) Morbid obesity ?E66.01 - Morbid (severe) obesity due to excess calories (ICD-10) Vitamin D deficiency ?E55.9 - Vitamin D deficiency, unspecified (ICD-10) Unspecified hypothyroidism ?E03.9 - Hypothyroidism, unspecified (ICD-10) Mobitz type 1 second degree AV block ?I44.1 - Atrioventricular block, second degree (ICD-10) Knee pain ?M25.569 - Pain in unspecified knee (ICD-10) Surgical History History of endometrial ablation ?Z98.890 - Other specified postprocedural states (ICD-10) History of carpal tunnel release ?Z98.890 - Other specified postprocedural states (ICD-10) H/O dilation and curettage ?Z98.890 - Other specified postprocedural states (ICD-10) History of tonsillectomy ?Z90.89 - Acquired absence of other organs (ICD-10) Hx of appendectomy ?Z90.49 - Acquired absence of other specified parts of digestive tract (ICD-10) S/P bilateral breast reduction ?Z98.890 - Other specified postprocedural states (ICD-10) History of arthroscopy of left shoulder (~2009) ?Z98.890 - Other specified postprocedural states (ICD-10) H/O parathyroidectomy (10/24/12) ?Z98.890 - Other specified postprocedural states (ICD-10) ?Z90.89 - Acquired absence of other organs (ICD-10) Hx laparoscopic cholecystectomy (04/11/13) ?Z90.49 - Acquired absence of other specified parts of digestive tract (ICD-10) Social History Smoking Status: Current every day smoker What tobacco products do you use: cigarettes Smoking packs per day: 5 Smoking cigarettes per day: 100.0 Do you use any of these nicotine containing products: None Second hand tobacco smoke exposure: No How often do you have a drink containing alcohol: never AUDIT-C Alcohol total score: 0 Non-prescribed substance use: denies use service: No Exam Narrative: Exam Narrative: Tejal is alert and oriented. Very pleasant woman. She is lying on the gurney in room 6. She is able to move around and I am able to visualize her back. She has tenderness noted in the midline at approximately L3-4 in 5. No unusual rashes are noted. No skin breakdown is noted. Examination of the lower extremities shows 2+ edema. No weeping of the skin. No unusual erythema or warmth to the touch. Patient has full strength and motor at the great toe and ankles. Sensation is fully intact. DTRs at the knees present but less than 1 bilaterally. Able to lift both legs independently off the bed although lifting of the left leg causes her back pain. Const: Vital Signs, click to edit/add: Vital Signs - 24 hr 05/20/24 18:18 05/20/24 20:56 05/20/24 23:00 Temperature 97.9 F 97.9 F 97.9 F Pulse Rate [Pulse Oximeter] 88 81 89 Respiratory Rate 22 22 22 Blood Pressure [Ri ght Upper Arm] 136/90 H 132/74 138/70 Pulse Oximetry 97 97 97 Oxygen Delivery Me thod Room Air Room Air Room Air 05/21/24 00:56 Temperature 97.9 F Pulse Rate [Pulse Oximeter] Respiratory Rate Blood Pressure [Ri ght Upper Arm] Pulse Oximetry Oxygen Delivery Me thod Documenting provider has reviewed patient's vital signs: yes Course Course ED Course: Differential diagnosis includes but is not limited to DVT, congestive heart failure, radiculitis, lumbar lesion. Although she has had chronic back pain has been increasing over the last 2 weeks. No evidence of a fall. Will obtained plain films of the lumbar spine and the pelvis at this time. Will do a trial of Toradol as she is not currently taking any anti-inflammatories. Patient also talked about possibly some using steroids as these have worked for her in the past. Will check a proBNP, troponin, EKG. Patient does note that she has a history of sleep apnea and is supposed to be wearing CPAP but has not been doing that. Reevaluation(s) Reevaluation #1: Patient noted some relief with Toradol 15 mg IV. X-ray of the pelvis shows in irregularity on the right al a. She has no point tenderness at this area. Text x-ray without evidence of increased lung markings and proBNP is negative. Lower extremity Doppler negative as well. Reevaluation #2: I have been back in the room twice to discharge Tejal but she is sleeping soundly. She does have some snoring type respirations. I will let her sleep at this time Vital Signs Vital signs: Initial Vital Signs Temperature 97.9 F 05/20/24 18:18 Temperature Source Temporal Artery Scan 05/20/24 18:18 Pulse Rate 88 05/20/24 18:18 Respiratory Rate 22 05/20/24 18:18 Blood Pressure 136/90 H 05/20/24 18:18 Blood Pressure Mean 105 05/20/24 18:18 Pulse Oximetry 97 05/20/24 18:18 Oxygen Delivery Method Room Air 05/20/24 18:18 Vital Signs Temperature 97.9 F 05/20/24 18:18 Pulse Rate 88 05/20/24 18:18 Respiratory Rate 22 05/20/24 18:18 Blood Pressure 136/90 H 05/20/24 18:18 Pulse Oximetry 97 05/20/24 18:18 Oxygen Delivery Method Room Air 05/20/24 18:18 Temperature 97.9 F 05/21/24 00:56 Pulse Rate 89 05/20/24 23:00 Respiratory Rate 22 05/20/24 23:00 Blood Pressure 138/70 05/20/24 23:00 Pulse Oximetry 97 05/20/24 23:00 Oxygen Delivery Method Room Air 05/20/24 23:00 Medications Administered Medications: Discontinued Medications Generic Name Dose Route Start Last Admin Trade Name Freq PRN Reason Stop Dose Admin Ketorolac Tromethamine 15 mg 05/20/24 20:21 05/20/24 20:35 Ketorolac 15 Mg/Ml Inj IVP 05/20/24 20:22 15 mg ONCE ONE Administration MDM - Back Pain/Injury MDM Narrative Medical decision making narrative: 1. Acute on chronic back pain-patient has no red flag symptoms this evening. Laboratory values are reassuring. Patient did have some relief with Toradol. At this time recommend adding Tylenol to her medications at home. Will give her prednisone 40 mg here in the ED. Medrol Dosepak is sent to her pharmacy to try tomorrow as this has worked for her in the past. I strongly recommend gentle exercises which I demonstrated tonight such as piriformis stretches. Would also recommend icing to the back. Finally follow-up with DR Fritz for evaluation for MRI/injection consideration. Return to the emergency room for worsening symptoms 2. Lower extremity edema-no evidence of congestive heart failure at this time. No evidence of DVT. Recommending increasing furosemide double dose tomorrow morning x1 only. Creatinine is 1.0 and should be able to tolerate this. 3. Disposition-home at this time. Patient has requested note for work as she normally comes into the office on Tuesdays and . Have written a note that she can stay home for the week. Return to the ER as for worsening symptoms and as needed. Medical Records Attestation: I reviewed the patient's medical records. Lab Data Attestation: I reviewed the patient's lab results. Labs: Lab Results 05/20/24 Range/Units 20:44 WBC 7.82 (4.50-11.00) K/uL RBC 4.52 (4.00-5.20) m/uL Hgb 12.7 (12.0-16.0) gm/dL Hct 39.7 (33.0-51.0) % MCV 88 (80-100) fL MCH 28 (26-34) pg MCHC 32 (32-36) gm/dL RDW Coeff of Chito 14.6 (11.5-15.5) % Plt Count 270 (140-440) K/uL Neut % (Auto) 60.9 (42.0-72.0) % Lymph % (Auto) 32.0 (20-44) % [place] % (Auto) 6.5 (0.0-11.0) % Eos % (Auto) 0.0 (0.0-7.0) % Baso % (Auto) 0.3 (0.0-3.0) % Neut # (Auto) 4.77 (1.7-7.0) K/uL Lymph # (Auto) 2.50 (0.90-2.90) K/uL [place] # (Auto) 0.50 (0.00-0.90) K/UL Eos # (Auto) 0.00 (0.00-0.50) K/uL Baso # (Auto) 0.02 (0.00-0.30) K/uL Abs Immat Gran (auto) 0.02 (0.00-0.30) K/uL Imm/Tot Granulo (auto) 0.3 % Sodium 136 (135-149) mmol/L Potassium 3.7 (3.6-5.1) mmol/L Chloride 98 (96-114) mmol/L Carbon Dioxide 34 H (20-32) mmol/L Anion Gap 4 L (7-15) mEq/L BUN 14 (7-30) mg/dL Creatinine 1.0 (0.5-1.5) mg/dL Estimated Creat Clear 50.11 Estimated GFR 65 ml/min Glucose 94 (60-115) mg/dL Calcium 9.1 (8.4-10.6) mg/dL Total Bilirubin 0.6 (0.1-1.5) mg/dL AST 41 H (12-35) U/L ALT 41 H (4-35) U/L Alkaline Phosphatase 113 (40-150) U/L NT-Pro-B Natriuret Pep 66 pg/mL Total Protein 7.0 (6.0-8.3) g/dL Albumin 4.0 (3.3-5.0) g/dL Imaging Data Chest x-ray: Attestation: I have reviewed the pertinent imaging results. My impression: No evidence of infiltrates Radiologist's impression: Cardiovascular and mediastinum: Heart size and vasculature are normal in caliber and appearance. Lungs and pleural spaces: Lungs are clear. No pleural effusion, or pneumothorax. Bones and soft tissues: Remote postsurgical versus posttraumatic changes of the left distal clavicle. Otherwise, unremarkable for age. IMPRESSION: No evidence of an acute pulmonary process. Venous US: Attestation: I have reviewed the pertinent imaging results. Radiologist's impression: Deep veins: Sonographic imaging demonstrates the bilateral common femoral, deep femoral, superficial femoral, popliteal, peroneal, and posterior tibial veins to be fully compressible with normal color Doppler blood flow. Superficial veins: Greater saphenous veins are fully compressible. 4.9 x 3.3 x 2.3 cm left popliteal fossa cyst. IMPRESSION: No evidence of deep venous thrombosis within the evaluated veins of the bilateral lower extremities. Pelvis x-ray: Attestation: I have reviewed the pertinent imaging results. My impression: I do not note any acute fractures Radiologist's impression: Air within stool versus a subtle cortical defect involving the right sacral ala,, which could represent a nondisplaced fracture. Recommend correlation with site of focal tenderness. If there is persistent clinical concern, recommend CT. No other evidence for a fracture visualized. Alignment is normal. Degenerative changes of the lower lumbar spine and sacroiliac joints. The hip joint spaces are preserved. No aggressive osseous lesion. The soft tissues are unremarkable. Lumbar x-ray: Attestation: I have reviewed the pertinent imaging results. My impression: Degenerative disease Radiologist's impression: Five lumbar-type vertebral bodies. The vertebral body heights are maintained. Grade 1 anterolisthesis of L4 on L5 and L5 on S1 secondary to facet arthrosis. The intervertebral disc spaces are maintained. There are small marginal osteophytes at most levels. No aggressive osseous lesion or acute fracture. Sacroiliac joint degenerative changes. The soft tissues are unremarkable. Impression: 1. No evidence of an acute bony abnormality. 2. Degenerative spondylolisthesis at L4-5 and L5-S1. ECG Data Attestation: I personally reviewed and interpreted this ECG as follows: ECG interpretation date: 05/20/24 Interpretation: EKG by my read shows sinus rhythm with 1st degree AV block [place] interval of 240 milliseconds. Rate is at 85. I do not note any acute ST or T-wave changes. Discharge Plan Discharge Clinical Impression: Bilateral edema of lower extremity Sciatica Qualifiers: Laterality: bilateral Qualified Code(s): M54.31 - Sciatica, right side Patient Disposition: Home, Self-Care Condition: Improved Additional Instructions: Medrol Dosepak is sent to your pharmacy. Supplement your oxycodone with Tylenol to see if this may help. Recommend the gentle stretches I demonstrated for you as well as icing to your low back. Will provide a note for you so that you do not need to go in to work this week. Follow-up with your primary MD for the lower extremity edema. You may take an extra dose of your diuretic tomorrow morning. Your kidney function was within normal limits. Follow-up with Dr. Fritz for consideration of an injection. Line Return to the emergency room as needed for worsening symptoms. Prescriptions: New methylprednisolone [Medrol (Erwin)] 4 mg tablets,dose pack See Rx Instructions .ROUTE .COMPLEX Qty: 21 0RF Rx Instructions: orally per package directions No Action levothyroxine 50 mcg capsule 50 mcg PO QDAY spironolactone 50 mg tablet 50 mg PO DAILY cyclobenzaprine 10 mg tablet pramipexole 1 mg tablet Patient Comments: TAKE 1 AND 1/2 TABLETS BY MOUTH AT BEDTIME NEEDED furosemide 40 mg tablet 40 mg PO DAILY Patient Comments: TAKE 1-2 TABLETS (40-80 MG) BY MOUTH EVERY MORNING. bupropion HCl 150 mg tablet sustained-release 12 hr 300 mg PO DAILY Patient Comments: TAKE TWO TABLETS BY MOUTH DAILY EVERY MORNING oxycodone-acetaminophen 5-325 mg tablet pantoprazole 40 mg tablet,delayed release (DR/EC) 40 mg PO DAILY Patient Comments: TAKE 1 TABLET (40 MG) BY MOUTH ONCE DAILY. levothyroxine 200 mcg tablet 200 mcg PO DAILY Patient Comments: TAKE 1 TABLET (200 MCG) BY MOUTH BEFORE BREAKFAST. TAKE IN ADDITION TO 25 MCG TO TOTAL OF 225 MCG. dextroamphetamine-amphetamine 30 mg capsule,extended release 24hr PO Patient Comments: TAKE 1 CAPSULE (30 MG) BY MOUTH ONCE DAILY. ketoconazole 2 % cream 1 applic topical DAILY 7 Days Qty: 15 0RF metolazone 5 mg tablet 5 mg PO 2XW gabapentin 300 mg capsule 300 mg PO BID spironolactone 25 mg tablet 25 mg PO DAILY potassium chloride 20 mEq tablet,ER particles/crystals 60 meq PO DAILY dextroamphetamine-amphetamine 20 mg tablet dextroamphetamine-amphetamine 25 mg capsule,extended release 24hr 25 mg PO QAM celecoxib 200 mg capsule 200 mg PO BID PRN (Reason: pain) amoxicillin-pot clavulanate 875-125 mg tablet 1 tab PO BID Qty: 20 0RF Follow Up/Referrals: Concetta Valencia PA-C [Primary Care Provider] - Stand Alone Forms: [employer] Info Instructions
--- NOTE | 2024-05-20 20:20 | CRLHL7_ITS ---
For Patients: As a result of the Century Cures Act, medical imaging exams and procedure reports are released immediately into your electronic medical record. You may view this report before your referring provider. If you have questions, please contact your health care provider. INDICATION: Fluid retention. TECHNIQUE: Chest 1 view. COMPARISON: None. FINDINGS: Cardiovascular and mediastinum: Heart size and vasculature are normal in caliber and appearance. Lungs and pleural spaces: Lungs are clear. No pleural effusion, or pneumothorax. Bones and soft tissues: Remote postsurgical versus posttraumatic changes of the left distal clavicle. Otherwise, unremarkable for age. IMPRESSION: No evidence of an acute pulmonary process. Dictated by Pranav Mixon MD @ 05/20/2024 11:17:13 PM (Electronically Signed)
--- NOTE | 2024-05-20 20:20 | CRLHL7_ITS ---
For Patients: As a result of the Century Cures Act, medical imaging exams and procedure reports are released immediately into your electronic medical record. You may view this report before your referring provider. If you have questions, please contact your health care provider. Indication: Low back pain. Technique: Lumbar spine 2 views. Comparison: None. Findings: Five lumbar-type vertebral bodies. The vertebral body heights are maintained. Grade 1 anterolisthesis of L4 on L5 and L5 on S1 secondary to facet arthrosis. The intervertebral disc spaces are maintained. There are small marginal osteophytes at most levels. No aggressive osseous lesion or acute fracture. Sacroiliac joint degenerative changes. The soft tissues are unremarkable. Impression: 1. No evidence of an acute bony abnormality. 2. Degenerative spondylolisthesis at L4-5 and L5-S1. Dictated by Pranav Mixon MD @ 05/20/2024 11:19:38 PM (Electronically Signed)
--- NOTE | 2024-05-20 20:21 | CRLHL7_ITS ---
For Patients: As a result of the Century Cures Act, medical imaging exams and procedure reports are released immediately into your electronic medical record. You may view this report before your referring provider. If you have questions, please contact your health care provider. INDICATION: Bilateral lower extremity pain and swelling. TECHNIQUE: Ultrasound venous duplex bilateral lower extremity. Compression venous exam was performed using doll-scale, color Doppler, and spectral Doppler analysis. COMPARISON: None. FINDINGS: Deep veins: Sonographic imaging demonstrates the bilateral common femoral, deep femoral, superficial femoral, popliteal, peroneal, and posterior tibial veins to be fully compressible with normal color Doppler blood flow. Superficial veins: Greater saphenous veins are fully compressible. 4.9 x 3.3 x 2.3 cm left popliteal fossa cyst. IMPRESSION: No evidence of deep venous thrombosis within the evaluated veins of the bilateral lower extremities. Dictated by Pranav Mixon MD @ 05/20/2024 11:06:14 PM (Electronically Signed)
--- NOTE | 2024-05-20 20:24 | CRLHL7_ITS ---
For Patients: As a result of the Century Cures Act, medical imaging exams and procedure reports are released immediately into your electronic medical record. You may view this report before your referring provider. If you have questions, please contact your health care provider. Indication: Low back pain. Technique: Single AP view of the pelvis. Comparison: None. Findings/Impression: Air within stool versus a subtle cortical defect involving the right sacral ala,, which could represent a nondisplaced fracture. Recommend correlation with site of focal tenderness. If there is persistent clinical concern, recommend CT. No other evidence for a fracture visualized. Alignment is normal. Degenerative changes of the lower lumbar spine and sacroiliac joints. The hip joint spaces are preserved. No aggressive osseous lesion. The soft tissues are unremarkable. Dictated by Pranav Mixon MD @ 05/20/2024 11:14:59 PM (Electronically Signed)
[2024-05-20] MEDS: KETOROLAC 15 MG/ML inj IVP (20:35)
--- OUTSIDE RECORDS SUMMARY | 2024-05-20 20:35 | XMS_ITS | Clinical Summary ---
Author Organization [employer] [facility] Address [address] [place] [address] Care Team Providers Care Inspector Hot Forgings Name Role Phone Concetta Valencia Primary Care Provider Desire Butts NP Unavailable Oc Morocho RN Unavailable Lb Gilliland MD Unavailable Amna Jackson RN Unavailable Allergies Active Allergy Reactions Criticality Noted Date [...] Care 01/05/[address] Lb Jackson RN [facility] Candidate: no Intake: Wt Readings from Last 1 Encounters: 01/05/23 (!) 196.4 kg (433 lb) lbs, Ht Readings from Last 1 Encounters: 01/05/23 1.651 m (5' 5) BMI: 72.05 Planned Operation Sleeve Gastrectomy Payor: PREFERRED ONE / Plan: PREFERRED ONE / Product Type: *No Product type* / Insurance requirements:None Est. Pgm Completion: ~ June, Procedure Location: [facility] Co-morbidities: dyslipidemia, GERD, and GROVER Orders: Labs [...] 02/02/2023 8:00 AM Scarlett Joe, PhD, LP [facility] 02/02/2023 11:00 AM Desire Butts, HANDMADE TILE ARTIST PRAFUL HERNANDEZ Problem Noted Date Diagnosed Date [...] Department Care Team Description 05/20/[address] [facility] [address] [place] [address] Concetta Valencia PA Back Pain 05/20/[address] [facility] [address] [place] [address] Delfina iWley PA Appointment Request (Leg Pain - same day at 2:30 on 05/21) 05/06/2024 1:00 PM JAMB CUTTER Telemedicine [address] [phone] Alicia Land PA Telehealth (No vitals taken); Weight (MWL #4) 05/01/2024 3:00 PM JAMB CUTTER Telemedicine [address] [phone] Medical Nutrition Therapy (MWL.2) 05/01/2024 Travel 04/14/2024 2:00 PM JAMB CUTTER Office Visit [facility] [address] [place] [address] Concetta Valencia PA ER Follow up (Diverticulitis - was feeling better but now feeing pain again/) 04/14/2024 Travel 04/02/2024 Orders Only [facility] Scanner 1 scan: (1-Ord) [place], CT ABDOMEN PELVIS W CON, 04/02/2024 04/02/2024 Orders Only [facility] Scanner 1 scan: (1-Ord) [facility], CT ABDOMEN AND PELVIS W CON, 04/02/2024 04/02/[address] [facility] [address] [place] [address] Concetta Valencia PA Abdominal Pain 03/26/2024 1:20 PM JAMB CUTTER Office Visit [facility] [address] [place] [address] Concetta Valencia PA Ear Problem (Ringing in ears x 1 month) 03/26/2024 Travel 03/04/2024 4:20 PM JAMB CUTTER Ancillary Procedure [facility] [address] [place] [address] 03/04/2024 Travel 03/04/[address] [facility] [address] [place] [address] Concetta Valencia PA Refill Request (Levothyroxine, Metolazone) from Last 3 Months Immunizations Immunization Administration Dates Next Due COVID-19 vaccine ([email or web address] 30mcg/0.3mL) PF, MDV 03/30/2020,03/09/2020 INFLUENZA, IIV3 PF [...] on file Legal Sex Female 5:24 AM JAMB CUTTER Gender Identity Not on file Sexual Orientation Not on file Obstetrics History Last Filed Vital Signs Vital Sign Reading Time Taken Comments Blood Pressure 117/65 04/14/2024 2:03 PM JAMB CUTTER Pulse 94 04/14/2024 2:03 PM JAMB CUTTER Temperature 36.8 C (98.2 F) 02/15/2024 12:59 PM JAMB CUTTER Respiratory Rate 12 02/24/2013 9:15 AM JAMB CUTTER Oxygen Saturation 97% 02/15/2024 12:59 PM JAMB CUTTER Inhaled Oxygen Concentration - - Weight 179.2 kg (395 lb) 05/06/2024 12:00 PM JAMB CUTTER Height 165.1 cm (5' 5) 05/06/2024 12:00 PM JAMB CUTTER Body Mass Index 65.73 05/06/2024 12:00 PM JAMB CUTTER Plan of Treatment Upcoming Encounters Date Type Department Care Team (Late st Contact Info) Description 05/27/2024 11:50 AM CDT Office Visit [facility] [address] [place] [address] Concetta Valencia PA [address] [place] [address] 06/05/2024 1:30 PM CDT Telemedicine [address] [phone] [place] [address] 07/11/2024 10:00 AM CDT Telemedicine [address] [phone] Alicia Land PA [address] [facility] [place] [address] Health Maintenance Due Date Last Done Comments [...] Diagnosis Comments SCAN-CT INTERPRETATION 5 12:00 AM JAMB CUTTER SCAN-CT INTERPRETATION 5 12:00 AM JAMB CUTTER XR MAMMO SHAUNA BILAT SCREEN Routine 03/04/2024 4:34 PM JAMB CUTTER Visit for screening mammogram LIPID PANEL W REFLEX MEASURED LDL Routine 12/13/2022 9:22 AM CDT Morbid obesity with BMI of 60.0-69.9, adult (HC) SCAN-COLONOSCOPY 07/21/2022 12:[address] CHEST WO Routine 06/21/2012 Unspecified pleural effusion from Last 3 Months or Most Recently Relevant to Health Maintenance Results * SCAN-CT INTERPRETATION (04/02/2024 12:00 AM JAMB CUTTER) Only the most recent of2 resultswithin the time period is included. Anatomical Region Laterality Modality Other us Scanner OTHER Final Result * XR MAMMO SHAUNA BILAT SCREEN (03/04/2024 4:34 PM JAMB CUTTER) Anatomical Region Laterality Modality BREASTS, Breast Left, Breast Right Bilateral Mammography Impressions 03/04/2024 4:48 PM JAMB CUTTER There is no radiographic evidence for malignancy. Recommend annual mammograms. MAMMOGRAM ASSESSMENT: ACR 1 Negative PATIENTS: You will also receive a letter with your examination results in an easy to read format. If you have questions about your results, please contact your referring provider. Narrative 03/04/2024 4:48 PM JAMB CUTTER For Patients: As a result of the Century Cures Act, medical imaging exams and procedure reports are released immediately into your electronic medical record. You may view this report before your referring provider. If you have questions, please contact your health care provider. XR MAMMO SHAUNA BILAT SCREEN [[id number]] CLINICAL HISTORY: This is an asymptomatic 59 [...] - 199 mg/dL 12/13/2022 4:43 PM CDT [facility] Comment: Cholesterol, Total Reference Ranges Desirable <200 mg/dL Borderline 200-239 mg/dL High >=240 mg/dL TRIGLYCERIDES 88 <150 mg/dL 12/13/2022 4:43 PM CDT [facility] HDL CHOLESTEROL 55 >40 mg/dL 4:43 PM CDT [facility] NON-HDL CHOLESTEROL 148(H) <145 mg/dl 12/13/2022 4:43 PM CDT [facility] CHOL/HDL RATIO 3.69 <4.50 12/13/2022 4:43 PM CDT [facility] LDL CHOLESTEROL 130 <=130 mg/dL 12/13/2022 4:43 PM CDT [facility] VLDL CHOLESTEROL 18 <=30 mg/dL 12/13/2022 4:43 PM CDT [facility] PROVIDER ORDERED STATUS RANDOM 12/13/2022 4:43 PM CDT [facility] Blood BLOOD SPECIMEN / Unknown Venipuncture / Unknown 12/13/2022 9:22 AM CDT 12/13/2022 9:26 AM CDT us Desire Butts NP CHEMISTRY Final Res [facility] [address] [place] [address], * SCAN-COLONOSCOPY (07/21/2022 12:00 AM CDT) us Scanner OTHER Final Result * CT CHEST WO (06/21/2012) Anatomical Region Laterality Modality CHEST, THORAX, HEART Other us Emmy Bauer MD CT Final Result from Last 3 Months or Most Recently Relevant to Health Maintenance Insurance [facility] Advance Directives * Full Code (Latest Code Status on File) Date Activated Date Inactivated Comments 10/24/2012 1:36 PM 10/25/2012 4:16 PM * Full Code Date Activated Date Inactivated Comments 10/24/2012 10:54 AM 10/24/2012 1:36 PM Care Teams Inspector Hot Forgings Relationship Specialty Start Date End Date Concetta Valencia PA [address] [facility] [place] [address] PCP - General Family Practice 07/04/13 Desire Butts, HANDMADE TILE ARTIST [address] [place] [address] [place] [address] Nurse Practitioner - Family 11/21/22 Oc Morocho, ARMANDO [address] [place], [place] [phone] Registered Nurse 11/21/22 Lb Gilliland MD [address] [place] [address] Consulting Physician Surgery - General 01/05/23 Amna Jackson RN [address] [place] [address] Web Portal Developer Registered Nurse 01/05/23
[2024-05-20 20:52] LABS: Basophils Absolute Auto 0.02 K/uL (0.00-0.30); Basophils Percent Auto 0.3 % (0.0-3.0); Hematocrit 39.7 % (33.0-51.0); Hemoglobin* 12.7 gm/dL (12.0-16.0); Immature Granulocytes Abs Auto 0.02 K/uL (0.00-0.30); Immature Granulocytes Pct Auto 0.3 %; Mean Corpuscular HGB Conc 32 gm/dL (32-36); Mean Corpuscular Hemoglobin 28 pg (26-34); Mean Corpuscular Volume 88 fL (80-100); Monocytes Percent Auto 6.5 % (0.0-11.0); Neutrophils Absolute Auto 4.77 K/uL (1.7-7.0); Neutrophils Percent Auto 60.9 % (42.0-72.0); Platelet Count* 270 K/uL (140-440); RDW Coefficient of Variation % 14.6 % (11.5-15.5); Red Blood Count 4.52 m/uL (4.00-5.20); White Blood Count* 7.82 K/uL (4.50-11.00)
[2024-05-20 20:56] VITALS: BP 132/74; PULSE 81; RESP 22; TEMP 36.6; O2SAT 97
[2024-05-20 21:02] LABS: Slide Review Reflex No
[2024-05-20 21:07] LABS: Chloride* 98 mmol/L (96-114); Potassium* 3.7 mmol/L (3.6-5.1); Sodium* 136 mmol/L (135-149)
[2024-05-20 21:09] LABS: Anion Gap 4 mEq/L (7-15); Bilirubin Total* 0.6 mg/dL (0.1-1.5); Blood Urea Nitrogen* 14 mg/dL (7-30); Carbon Dioxide* 34 mmol/L (20-32); Est. Creatinine Clearance* 50.11; Estimated Glomerular Filt Rate 65 ml/min
[2024-05-20 21:10] LABS: Alanine Aminotransferase* 41 U/L (4-35); Alkaline Phosphatase* 113 U/L (40-150); Aspartate Amino Transferase* 41 U/L (12-35); Calcium* 9.1 mg/dL (8.4-10.6); Glucose* 94 mg/dL (60-115)
[2024-05-20 21:24] LABS: NT Pro B Type NatriureticPept* 66 pg/mL
[2024-05-20 23:00] VITALS: BP 138/70; PULSE 89; RESP 22; TEMP 36.6; O2SAT 97
[2024-05-21 00:56] VITALS: TEMP 36.6
[2024-05-21 01:08] VITALS: BP 133/68; PULSE 85; RESP 22; TEMP 36.6; O2SAT 97
[2024-05-21 02:00] VITALS: BP 133/68; PULSE 85; RESP 22; TEMP 36.6
== END 2024-05-21 02:00 | disposition home or self-care (01) ==
PROVIDERS: Emergency Provider Family Medicine; PCP Physician Assistant Medical
DX: M54.31 Sciatica, right side (principal); R60.0 Localized edema
CPT/HCPCS: 36415; 71045; 72100; 72170; 80053; 83880; 85025; 93005; 93970; 96374; 99284; J1885

== ENCOUNTER 2024-06-17 23:37 | Emergency (ER) | payer OTHER, SELFPAY ==
--- OUTSIDE RECORDS SUMMARY | 2024-06-17 23:39 | XMS_ITS | Clinical Summary ---
Author Organization [employer] [facility] [facility] Address [address] [place] [address] Care Team Providers Care Java Oracle Developer Name Role Phone Concetta Valencia Primary Care [...] FOR PAIN. 180 Capsule 3 023 Active buPROPion (WELLBUTRIN SR) 150 mg Sustained-Release tabletIndications :Mild episode of recurrent major depressive disorder Take [...] needed for anxiety. 20 Tablet 024 Active furosemide (LASIX) 40 mg tabletIndications :taking 2 tabs 5 days a week, and 1 tab 2 days a week Take 1-2 Tablets (40-80 mg) by mouth once daily in the morning. 180 Tablet 1 024 Active gabapentin (NEURONTIN) 300 mg capsuleIndication s:Chronic bilateral low back pain with bilateral sciatica Take 1 Capsule (300 mg) by mouth two times daily. 180 Capsule 1 025 Active levothyroxine (SYNTHROID) 200 mcg tabletIndications :Hypothyroidism, acquired Take 1 Tablet (200 mcg) by mouth once daily. 90 Tablet 3 025 Active levothyroxine (SYNTHROID) 50 mcg tabletIndications :Hypothyroidism, acquired Take 1 Tablet (50 mcg) by mouth before breakfast. Take in addition to 200 mcg for total of 250 mcg daily. 90 Tablet 3 025 Active topiramate (TOPAMAX) 25 mg tabletIndications :Morbid obesity with BMI of 60.0-69.9, adult (HC) Take 2 Tablets (50 mg) by mouth at bedtime. 60 Tablet 2 025 Active nicotine 21 mg/24 hr 21 mg/24 hr patchIndications: Tobacco dependence Apply 1 Patch on dry, clean, hairless skin once daily. 30 Patch 025 Active nicotine 14 mg/24 hr 14 mg/24 hr patchIndications: Tobacco dependence Apply 1 Patch on dry, clean, hairless skin once daily. 30 Patch 025 Active oxyCODONE-acetami nophen (Percocet) 5-325 mg per tabletIndications :Primary osteoarthritis of both knees Take 1 Tablet by mouth 3 times daily if needed for Pain. Take for chronic knee pain. Max acetaminophen dose: 4000mg in 24 hrs. 60 Tablet 025 Active metOLazone 5 mg tabletIndications :SOB (shortness of breath),Bilateral lower extremity edema TAKE 1 TABLET BY MOUTH 2 TIMES A WEEK 20 Tablet 025 Active metOLazone (ZAROXOLYN) 5 mg tabletIndications :taking twice weekly Take 1 tab twice weekly. 20 Tablet 025 2024 Discontinued oxyCODONE-acetami nophen (Percocet) 5-325 mg per tabletIndications :Primary osteoarthritis of both knees Take 1 Tablet by mouth 3 times daily if needed for Pain. Take for chronic knee pain. Max acetaminophen dose: 4000mg in 24 hrs. 60 Tablet 025 2024 Discontinued(R eorder (E-cancel not sent)) clindamycin 300 mg capsuleIndication s:Cellulitis of skin Take 1 Capsule (300 mg) by mouth three times daily for 10 days. 30 Capsule 025 2024 Active Problems Patient Care Coordination No te Formatting of this note is d ifferent from the original. Weight Management - Adult Surgical Program Patient Received Binder: Yes Part of KTYA Program: no RDC or GS Patient: No Initial Consult / Established Care 01/05/[address] Lb Jackson RN [facility] Candidate: no Intake: Wt Readings from Last 1 Encounters: 01/05/23 (!) 196.4 kg (433 lb) lbs, Ht Readings from Last 1 Encounters: 01/05/23 1.651 m (5' 5) BMI: 72.05 Planned Operation Sleeve Gastrectomy Payor: PREFERRED ONE / Plan: PREFERRED ONE / Product Type: *No Product type* / Insurance requirements:None Est. Pgm Completion: ~ June, Procedure Location: [facility] Co-morbidities: dyslipidemia, GERD, and GROVER Orders: [...] Center 02/02/2023 8:00 AM Scarlett Joe, PhD, [facility] 02/02/2023 11:00 AM Desire Butts NP PRAFUL HERNANDEZ Problem Noted Date Diagnosed Date [...] Encounters Date Type Department Care Team Description 06/17/2024 Nurse Triage [facility] [address] [place] [address] Concetta Valencia PA Foot Problem 06/10/2024 Refill [facility] [address] [place] [address] Concetta Valencia PA Refill Request (Metolazone) 06/05/2024 1:[address] [facility] [address] [place] [phone] Medical Nutrition Therapy (MWL.3) 06/04/2024 Travel 05/27/2024 11:50 AM CDT Office Visit [facility] [address] [place] [address] Concetta Valencia PA ER Follow up (Lower Back pain, pain went down back of both legs) 05/27/2024 Travel 05/20/2024 Orders Only [facility] Scanner 1 scan: (1-Ord) [place], XR LUMBAR SPINE 2-3V, 05/20/2024 05/20/2024 Orders Only [facility] Scanner 1 scan: (1-Ord) [place], XR CHEST 1V, 05/20/2024 05/20/2024 Orders Only [facility] Scanner 1 scan: (1-Ord) [facility], VENOUS [place] BI, 05/20/2024 05/20/2024 Orders Only [facility] Scanner 1 scan: (1-Ord) [facility], XR PELVIS 1-2V, 05/20/2024 05/20/2024 Nurse Triage [facility] [address] [place] [address] Concetta Valencia PA Back Pain 05/20/2024 Telephone [facility] [address] [place] [address] Delfina Wiley PA Appointment Request (Leg Pain - same day at 2:30 on 05/21) 05/06/2024 1:00 PM BROADCAST METEOROLOGIST Telemedicine [address] [phone] Alicia Land PA Telehealth (No vitals taken); Weight (MWL #4) 05/01/2024 3:00 PM BROADCAST METEOROLOGIST Telemedicine [address] [phone] Medical Nutrition Therapy (MWL.2) 05/01/2024 Travel 04/14/2024 2:00 PM BROADCAST METEOROLOGIST Office Visit [facility] [address] [place] [address] Concetta Valencia PA ER Follow up (Diverticulitis - was feeling better but now feeing pain again/) 04/14/2024 Travel 04/02/2024 Orders Only [facility] Scanner 1 scan: (1-Ord) [place], CT ABDOMEN PELVIS W CON, 04/02/2024 04/02/2024 Orders Only [facility] Scanner 1 scan: (1-Ord) [facility], CT ABDOMEN AND PELVIS W CON, 04/02/2024 04/02/2024 Nurse Triage [facility] [address] [place] [address] Concetta Valencia PA Abdominal Pain 03/26/2024 1:20 PM BROADCAST METEOROLOGIST Office Visit [facility] [address] [place] [address] Concetta Valencia PA Ear Problem (Ringing in ears x 1 month) 03/26/2024 Travel from Last 3 Months Immunizations Immunization Administration Dates Next Due COVID-19 vaccine ([employer] 30mcg/0.3mL) PF, MDV 03/30/2020,03/09/2020 INFLUENZA, IIV3 PF [...] Date Smoking Tobacco: Every Day Cigarettes 0.5 42.3 Started: 1982 Smokeless Tobacco: Never Tobacco Cessation:Ready [...] on file Legal Sex Female 5:24 AM BROADCAST METEOROLOGIST Gender Identity Not on file Sexual Orientation Not on file Obstetrics History Last Filed Vital Signs Vital Sign Reading Time Taken Comments Blood Pressure 119/71 05/27/2024 12:02 PM CDT Pulse 105 05/27/2024 12:02 PM CDT Temperature 36.8 C (98.2 F) 02/15/2024 12:59 PM BROADCAST METEOROLOGIST Respiratory Rate 12 02/24/2013 9:15 AM BROADCAST METEOROLOGIST Oxygen Saturation 97% 02/15/2024 12:59 PM BROADCAST METEOROLOGIST Inhaled Oxygen Concentration - - Weight 180.5 kg (398 lb) 06/05/2024 1:00 PM CDT Height 165.1 cm (5' 5) 06/05/2024 1:00 PM CDT Body Mass Index 66.23 06/05/2024 1:00 PM CDT Plan of Treatment Upcoming Encounters Date Type Department Care Team (Late st Contact Info) Description 07/11/2024 10:00 AM CDT Telemedicine [address] [place] [address] Alicia Land PA [address] [place] [address] 07/22/2024 2:[address] [facility] [address] [place] [address] Alejandrina Leon, KATHERIN [address] [place] [address] Health Maintenance Due Date Last Done Comments [...] history exists Mammogram for age 45-75 03/04/2025 03/04/20 24, 02/06/2023, 02/21/2021, Additional history exists BMI (ht and wt on same day) for age 18+ 06/05/2025 06/05/2024, 05/06/2024, 05/01/2024, Additional history exists Tetanus booster 03/01/2026 03/01/2016, 06/2011, 12/01/2005 Colonoscopy through age 75 07/22/202707/21, 02/21/2017, 10/26/2011 Lipids for age 45-75 12/14/2027 12/13/2022, 05/15/2022, 07/28/2011, Additional history exists Tdap Completed 03/01/2016, 12/07/2011 Influenza Vaccine Completed 01/23/2024, , 12/15/2019, Additional history exists Zoster (shingles) series for age 50+ Completed 01/23/2024, 07/22/2021 Procedures Procedure Name Priority Date/Time Associated Diagnosis Comments SCAN-RADIOLOGY REPORT 05/20/2024 12:00 AM CDT SCAN-RADIOLOGY REPORT 05/20/2024 12:00 AM CDT SCAN-ULTRASOUND REPORT 12:00 AM CDT SCAN-RADIOLOGY REPORT 05/20/2024 12:00 AM CDT SCAN-CT INTERPRETATION 5 12:00 AM BROADCAST METEOROLOGIST SCAN-CT INTERPRETATION 5 12:00 AM BROADCAST METEOROLOGIST XR MAMMO SHAUNA BILAT SCREEN Routine 03/04/2024 4:34 PM BROADCAST METEOROLOGIST Visit for screening mammogram LIPID PANEL W REFLEX MEASURED LDL Routine 12/13/2022 9:22 AM CDT Morbid obesity with BMI of 60.0-69.9, adult (HC) SCAN-COLONOSCOPY 07/21/2022 12:[address] CHEST WO Routine 06/21/2012 Unspecified pleural effusion from Last 3 Months or Most Recently Relevant to Health Maintenance Results * SCAN-RADIOLOGY REPORT (05/20/2024 12:00 AM CDT) Only the most recent of3 resultswithin the time period is included. Anatomical Region Laterality Modality Other us Scanner OTHER Final Result * SCAN-ULTRASOUND REPORT (05/20/2024 12:00 AM CDT) Anatomical Region Laterality Modality Other us Scanner OTHER Final Result * SCAN-CT INTERPRETATION (04/02/2024 12:00 AM BROADCAST METEOROLOGIST) Only the most recent of2 resultswithin the time period is included. Anatomical Region Laterality Modality Other us Scanner OTHER Final Result * XR MAMMO SHAUNA BILAT SCREEN (03/04/2024 4:34 PM BROADCAST METEOROLOGIST) Anatomical Region Laterality Modality BREASTS, Breast Left, Breast Right Bilateral Mammography Impressions 03/04/2024 4:48 PM BROADCAST METEOROLOGIST There is no radiographic evidence for malignancy. Recommend annual mammograms. MAMMOGRAM ASSESSMENT: ACR 1 Negative PATIENTS: You will also receive a letter with your examination results in an easy to read format. If you have questions about your results, please contact your referring provider. Narrative 03/04/2024 4:48 PM BROADCAST METEOROLOGIST For Patients: As a result of the Century Cures Act, medical imaging exams and procedure reports are released immediately into your electronic medical record. You may view this report before your referring provider. If you have questions, please contact your health care provider. XR MAMMO SHAUNA BILAT SCREEN [[id number]] CLINICAL HISTORY: This is an asymptomatic 59 [...] or areas of architectural distortion. us Concetta PECK MAMMO Final R esult * (ABNORMAL) LIPID PANEL W REFLEX MEASURED LDL (12/13/2022 9:22 AM CDT) CHOLESTEROL,TOTAL 203(H) 100 - 199 mg/dL 12/13/2022 4:43 PM CDT [facility] Comment: Cholesterol, Total Reference Ranges Desirable <200 mg/dL Borderline 200-239 mg/dL High >=240 mg/dL TRIGLYCERIDES 88 <150 mg/dL 12/13/2022 4:43 PM CDT [facility] HDL CHOLESTEROL 55 >40 mg/dL 4:43 PM CDT [facility] NON-HDL CHOLESTEROL 148(H) <145 mg/dl 12/13/2022 4:43 PM CDT [facility] CHOL/HDL RATIO 3.69 <4.50 12/13/2022 4:43 PM CDT [facility] LDL CHOLESTEROL 130 <=130 mg/dL 12/13/2022 4:43 PM CDT [facility] VLDL CHOLESTEROL 18 <=30 mg/dL 12/13/2022 4:43 PM CDT [facility] PROVIDER ORDERED STATUS RANDOM 12/13/2022 4:43 PM CDT [facility] Blood BLOOD SPECIMEN / Unknown Venipuncture / Unknown 12/13/2022 9:22 AM CDT 12/13/2022 9:26 AM CDT us Desire Butts TOXICOLOGY TEACHER CHEMISTRY Final Res [facility] [address] [place] [address], * SCAN-COLONOSCOPY (07/21/2022 12:00 AM CDT) us Scanner OTHER Final Result * CT CHEST WO (06/21/2012) Anatomical Region Laterality Modality CHEST, THORAX, HEART Other us Emmy Bauer MD CT Final Result from Last 3 Months or Most Recently Relevant to Health Maintenance Insurance [facility] SHARED SERVICES [facility] [place] [id number] Advance Directives * Full Code (Latest Code Status on File) Date Activated Date Inactivated Comments 10/24/2012 1:36 PM 10/25/2012 4:16 PM * Full Code Date Activated Date Inactivated Comments 10/24/2012 10:54 AM 10/24/2012 1:36 PM Care Teams Java Oracle Developer Relationship Specialty Start Date End Date Concetta Valencia PA [facility] [place] [address] PCP - General Family Practice 07/04/13 Desire Butts, TOXICOLOGY TEACHER [address] [place] [id number] Nurse Practitioner - Family 11/21/22 Oc Morocho, ARMANDO [address] [place] [address] Registered Nurse 11/21/22 Lb Gilliland MD [address] [place] [address] Consulting Physician Surgery - General 01/05/23 Amna Jackson RN [address] [place] [address] Plastic Sewer Registered Nurse 01/05/23
[2024-06-17 23:46] VITALS: BP 124/77; PULSE 88; RESP 28; TEMP 36.7; O2SAT 96; BMI 65.7
[2024-06-18 00:26] VITALS: BP 98/58; PULSE 71; RESP 26; O2SAT 93
--- NOTE | 2024-06-18 00:26 | CRLHL7_ITS ---
For Patients: As a result of the Century Cures Act, medical imaging exams and procedure reports are released immediately into your electronic medical record. You may view this report before your referring provider. If you have questions, please contact your health care provider. INDICATION: Dyspnea TECHNIQUE: Chest radiograph 2 views COMPARISON: 05/20/2024 FINDINGS: The sensitivity and specificity of the exam are moderately limited by the patient`s body habitus. Mediastinum: The mediastinum is normal in appearance. The heart silhouette is normal in size and morphology. Lung: Both lungs are unremarkable in appearance. No sign of pleural effusion seen. No pneumothorax is identified. Bone and Soft tissue: Unremarkable for age. IMPRESSION: 1. No acute cardiopulmonary disease is seen. Dictated by: Rod Vicente MD @ 06/18/2024 01:00:26 (Electronically Signed)
--- OUTSIDE RECORDS SUMMARY | 2024-06-18 00:32 | XMS_ITS | Clinical Summary ---
Author Organization [employer] [facility] [employer] [facility] Address [address] [place] [address] Care Team Providers Care Denture Model Maker Name Role Phone Concetta Valencia Primary Care Provider Desire Butts NP Unavailable Oc Morocho RN Unavailable Lb Gilliland MD Unavailable [phone] Amna Jackson RN Unavailable Allergies Active Allergy [...] Care 01/05/[address] Lb Jackson RN [facility] Candidate: no Intake: Wt Readings from Last 1 Encounters: 01/05/23 (!) 196.4 kg (433 lb) lbs, Ht Readings from Last 1 Encounters: 01/05/23 1.651 m (5' 5) BMI: 72.05 Planned Operation Sleeve Gastrectomy Payor: PREFERRED ONE / Plan: PREFERRED ONE / Product Type: *No Product type* / Insurance requirements:None Est. Pgm Completion: ~ June, Procedure Location: [facility] Co-morbidities: dyslipidemia, GERD, and GROVER Orders: [...] Center 02/02/2023 8:00 AM Scarlett Joe, PhD, [facility] 02/02/2023 11:00 AM Desire Butts NP PRAFUL [...] Department Care Team Description 06/17/2024 Nurse Triage [facility] [address] [place] [address] Concetta Valencia PA Foot Problem 06/10/2024 Refill [facility] [address] [place] [address] Concetta Valencia PA Refill Request (Metolazone) 06/05/2024 1:[address] [facility] [address] [place] [address] Medical Nutrition Therapy (MWL.3) 06/04/2024 Travel 05/27/2024 11:50 AM CDT Office Visit [facility] [address] [place] [address] Concetta Valencia PA ER Follow up (Lower Back pain, pain went down back of both legs) 05/27/2024 Travel 05/20/2024 Orders Only [facility] Scanner 1 scan: (1-Ord) [facility], XR LUMBAR SPINE 2-3V, 05/20/2024 05/20/2024 Orders Only [facility] Scanner 1 scan: (1-Ord) [facility], XR CHEST 1V, 05/20/2024 05/20/2024 Orders Only [facility] Scanner 1 scan: (1-Ord) [facility], VENOUS LE BI, 05/20/2024 05/20/2024 Orders Only [facility] Scanner 1 scan: (1-Ord) [facility], XR PELVIS 1-2V, 05/20/2024 05/20/2024 Nurse Triage [facility] [address] [place] [address] Concetat Valencia PA Back Pain 05/20/2024 Telephone [facility] [address] [place] [address] Delfina Wiley PA Appointment Request (Leg Pain - same day at 2:30 on 05/21) 05/06/2024 1:00 PM [facility] Telemedicine [address] [address] Alicia Land PA Telehealth (No vitals taken); Weight (MWL #4) 05/01/2024 3:00 PM [facility] Telemed[facility] [address] [address] Medical Nutrition Therapy (MWL.2) 05/01/2024 Travel 04/14/2024 2:00 PM [facility] Office Visit [facility] [address] [place] [address] Concetta Valencia PA ER Follow up (Diverticulitis - was feeling better but now feeing pain again/) 04/14/2024 Travel 04/02/2024 Orders Only [facility] Scanner 1 scan: (1-Ord) [facility], CT ABDOMEN PELVIS W CON, 04/02/2024 04/02/2024 Orders Only [facility] Scanner 1 scan: (1-Ord) [facility], CT ABDOMEN AND PELVIS W CON, 04/02/2024 04/02/2024 Nurse Triage [facility] [address] [place] [address] Concetta Valencia PA Abdominal Pain 03/26/2024 1:20 PM [facility] Office Visit [facility] [address] [place] [facility] [address] Concetta Valencia PA Ear Problem (Ringing in ears x 1 month) 03/26/2024 Travel from Last 3 Months Immunizations Immunization Administration Dates Next Due COVID-19 vaccine ([employer] 30mcg/0.3mL) PF, MDV 03/30/2020,03/09/2020 INFLUENZA, IIV3 PF [...] on file Legal Sex Female 5:24 AM [facility] Gender Identity Not on file Sexual Orientation Not on file Obstetrics History Last Filed Vital Signs Vital Sign Reading Time Taken Comments Blood Pressure 119/71 05/27/2024 12:02 PM CDT Pulse 105 05/27/2024 12:02 PM CDT Temperature 36.8 C (98.2 F) 02/15/2024 12:59 PM [facility] Respiratory Rate 12 02/24/2013 9:15 AM [facility] Oxygen Saturation 97% 02/15/2024 12:59 PM [facility] Inhaled Oxygen Concentration - - Weight 180.5 kg (398 lb) 06/05/2024 1:00 PM CDT Height 165.1 cm (5' 5) 06/05/2024 1:00 PM CDT Body Mass Index 66.23 06/05/2024 1:00 PM CDT Plan of Treatment Upcoming Encounters Date Type Department Care Team (Late st Contact Info) Description 07/11/2024 10:00 AM CDT Telemedicine [address] [place] [address] Alicia Land PA [address] [place] [address] 07/22/2024 2:[address] [facility] [address] [place] [address] Alejandrina Leon, KATHERIN [address] [place] [address] Health Maintenance Due Date Last Done Comments [...] AM CDT SCAN-CT INTERPRETATION 5 12:00 AM [facility] SCAN-CT INTERPRETATION 5 12:00 AM [facility] XR MAMMO SHAUNA BILAT SCREEN Routine 03/04/2024 4:34 PM [facility] Visit for screening mammogram LIPID PANEL W [...] Result * SCAN-CT INTERPRETATION (04/02/2024 12:00 AM [facility]) Only the most recent of2 resultswithin the time period is included. Anatomical Region Laterality Modality Other us Scanner OTHER Final Result * XR MAMMO SHAUNA BILAT SCREEN (03/04/2024 4:34 PM [facility]) Anatomical Region Laterality Modality BREASTS, Breast Left, Breast Right Bilateral Mammography Impressions 03/04/2024 4:48 PM [facility] There is no radiographic evidence for malignancy. Recommend annual mammograms. MAMMOGRAM ASSESSMENT: ACR 1 Negative PATIENTS: You will also receive a letter with your examination results in an easy to read format. If you have questions about your results, please contact your referring provider. Narrative 03/04/2024 4:48 PM [facility] For Patients: As a result of the Century Cures Act, medical imaging exams and procedure reports are released immediately into your electronic medical record. You may view this report before your referring provider. If you have questions, please contact your health care provider. XR MAMMO SHAUNA BILAT SCREEN [[id number]] CLINICAL HISTORY: This is an asymptomatic 59 [...] - 199 mg/dL 12/13/2022 4:43 PM CDT [facility] Comment: Cholesterol, Total Reference Ranges Desirable <200 mg/dL Borderline 200-239 mg/dL High >=240 mg/dL TRIGLYCERIDES 88 <150 mg/dL 12/13/2022 4:43 PM CDT [facility] HDL CHOLESTEROL 55 >40 mg/dL 4:43 PM CDT [facility] NON-HDL CHOLESTEROL 148(H) <145 mg/dl 12/13/2022 4:43 PM CDT [facility] CHOL/HDL RATIO 3.69 <4.50 12/13/2022 4:43 PM CDT [facility] LDL CHOLESTEROL 130 <=130 mg/dL 12/13/2022 4:43 PM CDT [facility] VLDL CHOLESTEROL 18 <=30 mg/dL 12/13/2022 4:43 PM CDT [facility] PROVIDER ORDERED STATUS RANDOM 12/13/2022 4:43 PM CDT [facility] Blood BLOOD SPECIMEN / Unknown Venipuncture / Unknown 12/13/2022 9:22 AM CDT 12/13/2022 9:26 AM CDT us Desire Butts REGIONAL EDUCATION MANAGER CHEMISTRY Final Res ult [facility] [address] [place] [address], * SCAN-COLONOSCOPY (07/21/2022 12:00 AM CDT) us Scanner OTHER Final Result * CT CHEST WO (06/21/2012) Anatomical Region Laterality Modality CHEST, THORAX, HEART Other us Emmy Bauer MD CT Final Result from Last 3 Months or Most Recently Relevant to Health Maintenance Insurance [facility] [place] [id number] Advance Directives * Full Code (Latest Code Status on File) Date Activated Date Inactivated Comments 10/24/2012 1:36 PM 10/25/2012 4:16 PM * Full Code Date Activated Date Inactivated Comments 10/24/2012 10:54 AM 10/24/2012 1:36 PM Care Teams Denture Model Maker Relationship Specialty Start Date End Date Concetta Valencia PA [place] [address] PCP - General Family Practice 07/04/13 Desire Butts, REGIONAL EDUCATION MANAGER [address] [place] [id number] Nurse Practitioner - Family 11/21/22 Oc Morocho, ARMANDO [address] [place] [address] Registered Nurse 11/21/22 Lb Gilliland MD [address] [place] [address] Consulting Physician Surgery - General 01/05/23 Amna Jackson RN [address] [place] [address] Commis Chef Registered Nurse 01/05/23
[2024-06-18 00:49] LABS: Basophils Absolute Auto 0.03 K/uL (0.00-0.30); Basophils Percent Auto 0.4 % (0.0-3.0); Eosinophils Absolute Auto 0.01 K/uL (0.00-0.50); Eosinophils Percent Auto 0.1 % (0.0-7.0); Hematocrit 37.8 % (33.0-51.0); Hemoglobin* 12.6 gm/dL (12.0-16.0); Immature Granulocytes Abs Auto 0.05 K/uL (0.00-0.30); Immature Granulocytes Pct Auto 0.7 %; Lymphocytes Absolute Auto 2.59 K/uL (0.90-2.90); Lymphocytes Percent Auto 34.6 % (20-44); Mean Corpuscular HGB Conc 33 gm/dL (32-36); Mean Corpuscular Hemoglobin 29 pg (26-34); Mean Corpuscular Volume 86 fL (80-100); Monocytes Percent Auto 9.4 % (0.0-11.0); Neutrophils Percent Auto 54.8 % (42.0-72.0); Platelet Count* 272 K/uL (140-440); RDW Coefficient of Variation % 14.1 % (11.5-15.5); Red Blood Count 4.41 m/uL (4.00-5.20); White Blood Count* 7.48 K/uL (4.50-11.00)
[2024-06-18 00:50] LABS: Slide Review Reflex No
[2024-06-18 01:02] LABS: Blood Urea Nitrogen* 29 mg/dL (7-30); Calcium* 9.4 mg/dL (8.4-10.6); Carbon Dioxide* 36 mmol/L (20-32); Creatinine* 1.4 mg/dL (0.5-1.5); Est. Creatinine Clearance* 38.93; Estimated Glomerular Filt Rate 43 ml/min; Glucose* 115 mg/dL (60-115)
[2024-06-18 01:05] LABS: C Reactive Protein* 2.9 mg/dL (0.5-1.0)
[2024-06-18 01:13] LABS: NT Pro B Type NatriureticPept* 80 pg/mL
[2024-06-18 01:28] LABS: Anion Gap 7 mEq/L (7-15); Chloride* 93 mmol/L (96-114); Sodium* 136 mmol/L (135-149)
--- NOTE | 2024-06-18 01:56 | ED_ITS ---
HPI - General Adult General Chief complaint: Lower Extremity Swelling Stated complaint: Leg and Feet swelling and pain Time Seen by Provider: 06/17/24 23:56 Source: patient Mode of arrival: ambulatory Limitations: no limitations History of Present Illness HPI narrative: 59-year-old female presents to the ED. She called triage line at her clinic at about 5:00 p.m. which is about 6-1/2 hours prior to arrival. She reported that someone was over at her house and was concerned that the creases in her legs were deeper than usual that there was some discoloration. She is noticing any fevers. There is no injury or trauma. The swelling is symmetric. She has chronic edema in her legs and is on multiple diuretics for this. Does not have a history of DVT, PE or prior cellulitis per her report. She does not use any type of leg compression or wraps. She reports that she lives independently, has not missed any doses of her diuretics. She denies history of heart failure. She does not weigh herself regularly. She admits that the swelling seems to have gone down since earlier today mainly because her feet have been up more. She reports shortness of breath for over a year, swelling for 5 years. When I inquire about sleep apnea and sleep studies, she states that she has been told she needs to get this arranged. No chest pain, no new acute changes. Multiple drug allergies reviewed. Patient's medications are reviewed. Daily discrepancy was that she reports she takes 80 mg of furosemide rather than the 40 mg listed except on the days where she takes the metolazone, then she does take 40 mg. Five ED visits within the last year. She is a nonsmoker, no recent surgical procedures, lives independently. ROS is notable for the chronic conditions as described above, denies acute concerns times 12 systems. Related Data Home Medications ?Medication ?Instructions ?Recorded ?Confirmed bupropion HCl 150 mg tablet,12 hr 300 mg PO DAILY 02/28/22 06/17/24 sustained-release cyclobenzaprine 10 mg tablet 10 mg 02/28/22 12/05/23 dextroamphetamine-amphetamine ER PO 02/28/22 12/05/23 30 mg 24hr capsule,extend release furosemide 40 mg tablet 40 mg PO DAILY 02/28/22 06/17/24 levothyroxine 200 mcg tablet 200 mcg PO DAILY 02/28/22 06/17/24 oxycodone-acetaminophen 5 mg-325 2 tab 02/28/22 12/05/23 mg tablet pantoprazole 40 mg tablet,delayed 40 mg PO DAILY 02/28/22 06/17/24 release pramipexole 1 mg tablet 1 mg 02/28/22 12/05/23 levothyroxine 50 mcg capsule 50 mcg PO QDAY 11/30/23 06/17/24 spironolactone 50 mg tablet 50 mg PO DAILY 11/30/23 06/17/24 celecoxib 200 mg capsule 200 mg PO BID PRN pain 04/02/24 06/17/24 dextroamphetamine-amphetamine 20 20 mg 04/02/24 mg tablet dextroamphetamine-amphetamine ER 25 mg PO QAM 04/02/24 06/17/24 25 mg 24hr capsule,extend release gabapentin 300 mg capsule 300 mg PO BID 04/02/24 06/17/24 metolazone 5 mg tablet 5 mg PO 2XW 04/02/24 06/17/24 potassium chloride 20 mEq 60 meq PO DAILY 04/02/24 06/17/24 tablet,extended release(part/cryst) spironolactone 25 mg tablet 25 mg PO DAILY 04/02/24 06/17/24 topiramate 25 mg tablet 25 mg PO BID 06/17/24 06/17/24 Allergies Allergy/AdvReac Type Severity Reaction Status Date / Time Cephalosporins Allergy Mild Unknown Verified 06/17/24 23:41 gabapentin Allergy Mild Unknown Verified 06/17/24 23:41 Sulfa (Sulfonamide Allergy Mild Unknown Verified 06/17/24 23:41 Antibiotics) sulfamethoxazole Allergy Mild Unknown Verified 06/17/24 23:41 trimethoprim Allergy Mild Unknown Verified 06/17/24 23:41 cefadroxil (From Duricef) Allergy Verified 06/17/24 23:41 adhesive tape AdvReac Mild Unknown Verified 06/17/24 23:41 [facility] Medical History Irritable bowel syndrome (IBS) ?K58.9 - Irritable bowel syndrome without diarrhea (ICD-10) Insomnia ?G47.00 - Insomnia, unspecified (ICD-10) Heartburn ?R12 - Heartburn (ICD-10) Fibromyalgia ?M79.7 - Fibromyalgia (ICD-10) Edema ?R60.9 - Edema, unspecified (ICD-10) DJD (degenerative joint disease) ?M19.90 - Unspecified osteoarthritis, unspecified site (ICD-10) Depression ?F32.A - Depression, unspecified (ICD-10) Delayed wound healing ?T14.8XXD - Other injury of unspecified body region, subsequent encounter (ICD-10) Anxiety ?F41.9 - Anxiety disorder, unspecified (ICD-10) Melanoma ?C43.9 - Malignant melanoma of skin, unspecified (ICD-10) Restless leg syndrome ?G25.81 - Restless legs syndrome (ICD-10) GROVER (obstructive sleep apnea) ?G47.33 - Obstructive sleep apnea (adult) (pediatric) (ICD-10) Tobacco use disorder ?F17.200 - Nicotine dependence, unspecified, uncomplicated (ICD-10) Bilateral carpal tunnel syndrome ?G56.03 - Carpal tunnel syndrome, bilateral upper limbs (ICD-10) Primary osteoarthritis of both knees ?M17.0 - Bilateral primary osteoarthritis of knee (ICD-10) Cervical facet joint syndrome ?M47.812 - Spondylosis without myelopathy or radiculopathy, cervical region (ICD-10) Hip arthritis ?M16.10 - Unilateral primary osteoarthritis, unspecified hip (ICD-10) Lumbar facet arthropathy ?M47.816 - Spondylosis without myelopathy or radiculopathy, lumbar region (ICD-10) Bulging lumbar disc ?M51.36 - Other intervertebral disc degeneration, lumbar region (ICD-10) Degeneration of cervical intervertebral disc ?M50.30 - Other cervical disc degeneration, unspecified cervical region (ICD- 10) Plantar fascial fibromatosis ?M72.2 - Plantar fascial fibromatosis (ICD-10) Achilles bursitis or tendinitis ?M76.60 - Achilles tendinitis, unspecified leg (ICD-10) Cholecystitis with cholelithiasis ?K80.10 - Calculus of gallbladder with chronic cholecystitis without obstruction (ICD-10) Adenomatous colon polyp ?D12.6 - Benign neoplasm of colon, unspecified (ICD-10) Esophageal reflux ?K21.9 - Gastro-esophageal reflux disease without esophagitis (ICD-10) Allergic rhinitis, cause unspecified ?J30.9 - Allergic rhinitis, unspecified (ICD-10) HPTH (hyperparathyroidism) ?E21.3 - Hyperparathyroidism, unspecified (ICD-10) Morbid obesity ?E66.01 - Morbid (severe) obesity due to excess calories (ICD-10) Vitamin D deficiency ?E55.9 - Vitamin D deficiency, unspecified (ICD-10) Unspecified hypothyroidism ?E03.9 - Hypothyroidism, unspecified (ICD-10) Mobitz type 1 second degree AV block ?I44.1 - Atrioventricular block, second degree (ICD-10) Knee pain ?M25.569 - Pain in unspecified knee (ICD-10) Surgical History History of endometrial ablation ?Z98.890 - Other specified postprocedural states (ICD-10) History of carpal tunnel release ?Z98.890 - Other specified postprocedural states (ICD-10) H/O dilation and curettage ?Z98.890 - Other specified postprocedural states (ICD-10) History of tonsillectomy ?Z90.89 - Acquired absence of other organs (ICD-10) Hx of appendectomy ?Z90.49 - Acquired absence of other specified parts of digestive tract (ICD- 10) S/P bilateral breast reduction ?Z98.890 - Other specified postprocedural states (ICD-10) History of arthroscopy of left shoulder (~2009) ?Z98.890 - Other specified postprocedural states (ICD-10) H/O parathyroidectomy (10/24/12) ?Z98.890 - Other specified postprocedural states (ICD-10) ?Z90.89 - Acquired absence of other organs (ICD-10) Hx laparoscopic cholecystectomy (04/11/13) ?Z90.49 - Acquired absence of other specified parts of digestive tract (ICD- 10) Social History Smoking Status: Current every day smoker What tobacco products do you use: cigarettes Smoking packs per day: 5 Smoking cigarettes per day: 100.0 Do you use any of these nicotine containing products: None Second hand tobacco smoke exposure: No How often do you have a drink containing alcohol: never AUDIT-C Alcohol total score: 0 Non-prescribed substance use: denies use service: No Exam Const: Vital Signs, click to edit/add: Vital Signs - 24 hr 06/17/24 23:46 06/18/24 00:26 Temperature 98.1 F Pulse Rate [Pulse Oximeter] 88 71 Respiratory Rate 28 H 26 H Blood Pressure [Ri ght Upper Arm] 124/77 98/58 L Pulse Oximetry 96 93 Oxygen Delivery Me thod Room Air Room Air Documenting provider has reviewed patient's vital signs: yes Common normals: no apparent distress Other: Obesity hyperventilation type breathing, very difficult for her to ambulate even with her wheeled walker with seat. Does appear well nourished, well hydrated in answers questions appropriately. HENMT: Common normals: normocephalic, head/scalp atraumatic, moist oral mucous membranes and oropharynx normal Head and scalp: normocephalic and atraumatic Face and sinus: normal facial exam Mouth: oral and palatal mucosa normal Throat: posterior oropharynx normal Eye: Common normals: conjunctivae normal General eye: normal appearance of both eyes Conjunctiva: conjunctiva(e) normal Neck & C-Spine: Common normals: full ROM and no lymphadenopathy General: normal visual inspection Chest: Common normals: inspection of chest normal Resp: Other: Tachypneic but it seems secondary to obesity hypoventilation. She does not seem to show any increased work of breathing. Breath sounds are decreased bilaterally but I think it is mainly because of body habitus. No obvious wheeze. Cardio: Common normals: regular rate and regular rhythm Rate: regular rate Rhythm: regular rhythm Other: Distant heart sounds but S1 and S2 do seem normal. GI: Other: Abdomen is obese, I cannot palpate any of the organs. Does not seem obviously tender. Extremity: Other: 3+ edema to the knee. Equal and symmetr ic bilaterally. Thickening and hemosiderin staining of the skin consistent with chronic venous stasis. No weeping, no ulceration. Signs of some mild excoriation are present. No skin breakdown. She also has thickening of the skin and some hemosiderin deposits on the dependent areas of the arms but much less dramatically, lower back and buttocks are not examined. Neuro: Speech: speech normal Psych: Appearance: grossly normal Attitude: engaged Activity/motor behavior: appropriate eye contact Insight: fair Judgement: fair Course Course ED Course: 59-year-old female with what appears to be chronic edema with chronic venous stasis without evidence of cellulitis or DVT today. Concern friend urged patient to seek care but there does not seem to be any acute condition. Counseled patient that what I think we should do is a chest x-ray to look for pulmonary edema and some basic labs to look for electrolyte abnormalities, signs of NC, heart failure, infection or inflammation. She was agreeable to this. No treatments recommended other than Rigo wraps to the legs to help mobilize the e selina. Await findings. Reevaluation(s) Reevaluation #1: Update: We were detained a bit due to a very agitated overdose patient so did take some time to relay the results to patient. She reports that her symptoms are stable. She has not had any desaturation events while in the ED but is clearly observed to have obesity hypoventilation presentation. Labs and x-ray are very reassuring. No signs of infection or acute heart failure. Findings were relayed to patient. We had a long discussion regarding the venous stasis, how this is often a progressive condition, held the diuretics are not likely to improve the condition much farther than she is current only receiving. More frequent movement, elevation and compression wraps are the next step. I know she will be able to get the compression wraps on herself and I did let her know that unfortunately this constellation of signs does sometimes necessitate assisted living or a multiple time daily home health aide to assist with cares. Weight loss would of course improve her symptoms as well. Rigo wraps were applied and alarm symptoms reviewed. Instructed on taking the Rigo wraps off after no more than 12 hours. Frequent elevation encouraged. Return to the ED with any symptoms of infection, skin breakdown or other complication. She verbalizes understanding and agreement. Written instructions provided. Vital Signs Vital signs: Initial Vital Signs Temperature 98.1 F 06/17/24 23:46 Temperature Source Temporal Artery Scan 06/17/24 23:46 Pulse Rate 88 06/17/24 23:46 Respiratory Rate 28 H 06/17/24 23:46 Blood Pressure 124/77 06/17/24 23:46 Blood Pressure Mean 92 06/17/24 23:46 Pulse Oximetry 96 06/17/24 23:46 Oxygen Delivery Method Room Air 06/17/24 23:46 Vital Signs Temperature 98.1 F 06/17/24 23:46 Pulse Rate 88 04/15/25 23:46 Respiratory Rate 28 H 06/17/24 23:46 Blood Pressure 124/77 06/17/24 23:46 Pulse Oximetry 96 06/17/24 23:46 Oxygen Delivery Method Room Air 06/17/24 23:46 Temperature 98.1 F 06/17/24 23:46 Pulse Rate 71 06/18/24 00:26 Respiratory Rate 26 H 06/18/24 00:26 Blood Pressure 98/58 L 06/18/24 00:26 Pulse Oximetry 93 06/18/24 00:26 Oxygen Delivery Method Room Air 06/18/24 00:26 Medical Decision Making Lab Data Lab results reviewed: Yes I reviewed the patient's lab results Lab results narrative: Labs are reassuring. No significant leukocytosis. Potassium is a little low but she did take her metolazone today, not surprising. Creatinine looks stable, troponin and BNP are excellent. Chest x-ray reassuring as well. No signs of heart failure. Labs: Lab Results 06/18/24 06/18/24 Range/Units 00:26 00:40 WBC 7.48 (4.50-11.00) K/uL RBC 4.41 (4.00-5.20) m/uL Hgb 12.6 (12.0-16.0) gm/dL Hct 37.8 (33.0-51.0) % MCV 86 (80-100) fL MCH 29 (26-34) pg MCHC 33 (32-36) gm/dL RDW Coeff of Chito 14.1 (11.5-15.5) % Plt Count 272 (140-440) K/uL Neut % (Auto) 54.8 (42.0-72.0) % Lymph % (Auto) 34.6 (20-44) % Reynolds % (Auto) 9.4 (0.0-11.0) % Eos % (Auto) 0.1 (0.0-7.0) % Baso % (Auto) 0.4 (0.0-3.0) % Neut # (Auto) 4.10 (1.7-7.0) K/uL Lymph # (Auto) 2.59 (0.90-2.90) K/uL Reynolds # (Auto) 0.70 (0.00-0.90) K/UL Eos # (Auto) 0.01 (0.00-0.50) K/uL Baso # (Auto) 0.03 (0.00-0.30) K/uL Abs Immat Gran (auto) 0.05 (0.00-0.30) K/uL Imm/Tot Granulo (auto) 0.7 % Sodium 136 (135-149) mmol/L Potassium 3.0 L (3.6-5.1) mmol/L Chloride 93 L (96-114) mmol/L Carbon Dioxide 36 H (20-32) mmol/L Anion Gap 7 (7-15) mEq/L BUN 29 (7-30) mg/dL Creatinine 1.4 (0.5-1.5) mg/dL Estimated Creat Clear 38.93 Estimated GFR 43 ml/min Glucose 115 (60-115) mg/dL Calcium 9.4 (8.4-10.6) mg/dL C-Reactive Protein 2.9 H (0.5-1.0) mg/dL NT-Pro-B Natriuret Pep 80 pg/mL POC Troponin I 0.00 L (0.01-0.04) ng/ml Imaging Data Chest x-ray: Attestation: I have reviewed the pertinent imaging results. My impression: Normal chest x-ray. No pleural effusion, pulmonary edema, infiltrate or pneumothorax. Radiologist's impression: IMPRESSION: 1. No acute cardiopulmonary disease is seen. Dictated by: Rod Vicente MD @ 06/18/2024 01:00:26 Discharge Plan Discharge Clinical Impression: Chronic edema, Chronic venous stasis Patient Disposition: Home, Self-Care Condition: Stable Instructions: Leg Edema (ED), Venous Insufficiency (DC) Additional Instructions: as we discussed, the discoloration in the skin in your legs is from chronic swelling. The longer you have this condition, the more likely you are to get the thickening of the skin, the redness and even the purple discoloration and does deep creases at the joint lines that had you concerned tonight. There are no signs that this is infected or signs of a blood clot today. Unfortunately, the water pills are not enough to remove all of the fluid. This swelling accumulates from week veins as well and if you are not moving around frequently, using your muscle pumps to remove the fluid, the condition will continue to worsen. You have signs of similar stasis on your elbow areas as well. This does speak to how much you are moving around on a typical day to day basis. We have applied compression wraps to your legs. I would strongly recommend that this be done daily to help reduce your risk of getting an infection or stasis ulcers from your chronic swelling. Often, this needs to be done with a home health aide. It might be time for you to consider an assisted living facility. Please follow-up with your primary care doctor if you need help arranging home health services. If you have high fever, lots of weeping from the legs or other signs of new complication, you should come to an emergency department. Otherwise keep taking your medications as prescribed. The wrap should stay on for 10-12 hours per day and be removed for the remainder. It is best to try to elevate your legs as much as possible. I would also strongly encourage you to more urgently pursue a sleep study as you are showing signs of a condition called obesity hypoventilation syndrome. It is not severe enough to be hospitalized at this time but it is concerning. Activity Level: Activity as Tolerated Discharge Diet: Regular Prescriptions: No Action levothyroxine 50 mcg capsule 50 mcg PO QDAY spironolactone 50 mg tablet 50 mg PO DAILY cyclobenzaprine 10 mg tablet 10 mg pramipexole 1 mg tablet 1 mg Patient Comments: TAKE 1 AND 1/2 TABLETS BY MOUTH AT BEDTIME NEEDED furosemide 40 mg tablet 40 mg PO DAILY Patient Comments: TAKE 1-2 TABLETS (40-80 MG) BY MOUTH EVERY MORNING. bupropion HCl 150 mg tablet sustained-release 12 hr 300 mg PO DAILY Patient Comments: TAKE TWO TABLETS BY MOUTH DAILY EVERY MORNING oxycodone-acetaminophen 5-325 mg tablet 2 tab pantoprazole 40 mg tablet,delayed release (DR/EC) 40 mg PO DAILY Patient Comments: TAKE 1 TABLET (40 MG) BY MOUTH ONCE DAILY. levothyroxine 200 mcg tablet 200 mcg PO DAILY Patient Comments: TAKE 1 TABLET (200 MCG) BY MOUTH BEFORE BREAKFAST. TAKE IN ADDITION TO 25 MCG TO TOTAL OF 225 MCG. dextroamphetamine-amphetamine 30 mg capsule,extended release 24hr PO Patient Comments: TAKE 1 CAPSULE (30 MG) BY MOUTH ONCE DAILY. topiramate 25 mg tablet 25 mg PO BID metolazone 5 mg tablet 5 mg PO 2XW gabapentin 300 mg capsule 300 mg PO BID spironolactone 25 mg tablet 25 mg PO DAILY potassium chloride 20 mEq tablet,ER particles/crystals 60 meq PO DAILY dextroamphetamine-amphetamine 20 mg tablet 20 mg dextroamphetamine-amphetamine 25 mg capsule,extended release 24hr 25 mg PO QAM celecoxib 200 mg capsule 200 mg PO BID PRN (Reason: pain) Follow Up/Referrals: Concetta Valencia, PAVeronika [Primary Care Provider] - Stand Alone Forms: [employer] Info Instructions
== END 2024-06-18 02:02 | disposition home or self-care (01) ==
PROVIDERS: Emergency Provider Family Medicine; PCP Physician Assistant Medical
DX: R60.9 Edema, unspecified (principal); I87.8 Other specified disorders of veins
CPT/HCPCS: 36415; 71046; 80048; 83880; 84484; 85025; 86140; 93005; 99283; 99284; 99285